=== PATIENT | male | born 1955 | race African-American/Black ===

== ENCOUNTER → 2018-12-20 | Outpatient (CLI) | payer BC ==
[~2018-12-20] MED LIST: AMIO200T4 PO; ASPI-612 PO; ATOR20TA58 PO; LEVO100T5 PO; LEVO50TA5 PO; LISI-338 PO; METF500T16 PO; METO25TA4 PO; NITR0.4T24 SL; TICA90TA PO
--- NOTE | 2018-12-20 09:41 | CARD ---
MR#: [id number] Date of Study: 12/20/2018 Ordering Physician: YANN LUCERO, Referring Physician: YANN LUCERO, Tech: Khalida Gu [facility] APPROVED REPORT EXAM: Two-dimensional and M-mode echocardiogram with Doppler and color Doppler. Other Information Quality : AverageHR: 55bpm Rhythm : Bradycardia INDICATION Cardiomyopathy 2D DIMENSIONS RVDd2.7 (2.9-3.5cm)Left Atrium(2D)4.1 (1.6-4.0cm) IVSd1.5 (0.7-1.1cm)Aortic Root(2D)2.5 (2.0-3.7cm) LVDd6.2 (3.9-5.9cm)LVOT Diameter2.5 (1.8-2.4cm) PWd0.9 (0.7-1.1cm)LVDs4.5 (2.5-4.0cm) FS (%) 27.7 %SV103.3 ml LVEF(%)35.0 (>50%) Aortic Valve AoV Peak Jordan.103.0cm/sAoV VTI22.6cm AO Peak GR.4.2mmHgLVOT Peak Jordan.94.7cm/s AO Mean GR.2mmHgAVA (VMAX)4.58cm2 SIVAN (VTI)4.00cm2 Mitral Valve MV E Nwmqhwah54.1cm/sMV E Peak Gr.3mmHg MV DECEL [id number] A Amhlommr85.6cm/s MV E Mean Gr.1mmHgE/A Ratio1.1 Pulmonary Valve PV Peak Hopzspas40.2cm/s Pulmonary Vein S1 Lmvbyyxe42.3cm/sD2 Ncoedsra27.1cm/s LEFT VENTRICLE The Left Ventricle is mildly dilated. There is mild concentric left ventricular hypertrophy. The left ventricular systolic function is severely impaired. The Ejection Fraction is 25-30%. There is global hypokinesis of the left ventricle. Transmitral Doppler flow pattern is Grade II-pseudonormal filling dynamics. RIGHT VENTRICLE The right ventricle is normal size. There is normal right ventricular wall thickness. The right ventr icular systolic function is normal. ATRIA The left atrium is mildly dilated. The right atrium size is normal. The interatrial septum is intact with no evidence for an atrial septal defect or patent foramen ovale as noted on 2-D or Doppler imagi ng. AORTIC VALVE The aortic valve is normal in structure and function. The aortic valve is trileaflet. Doppler and Col or Flow revealed no significant aortic regurgitation. There is no significant aortic valvular stenosi s. There is no aortic valvular vegetation. MITRAL VALVE The mitral valve is thickened but opens well. There is no evidence of mitral valve prolapse. There is no mitral valve stenosis. Doppler and Color-flow revealed mild mitral regurgitation. TRICUSPID VALVE The tricuspid valve is normal in structure and function. Doppler and Color Flow revealed trace tricus pid regurgitation. There is no tricuspid valve prolapse or vegetation. There is no tricuspid valve st enosis. PULMONIC VALVE The pulmonic valve is not well visualized. GREAT VESSELS The aortic root is normal in size. The ascending aorta is normal in size. The IVC is normal in size a nd collapses >50% with inspiration. PERICARDIAL EFFUSION There is no evidence of significant pericardial effusion. Critical Notification Critical Value: No <Conclusion> The left ventricular systolic function is severely impaired. The Ejection Fraction is 25-30%. Mild mitral regurgitation. Trace tricuspid regurgitation. There is no evidence of significant pericardial effusion. Signed by : Rambo Silva, Electronically Approved : 12/20/2018 09:41:29
== END | disposition home or self-care (01) ==
LOC: ECHO 07:35
PROVIDERS: ATTEND Internal Medicine Cardiovascular Disease
DX: I34.0 Nonrheumatic mitral (valve) insufficiency (principal); I11.9 Hypertensive heart disease without heart failure; I21.02 ST elevation (STEMI) myocardial infarction involving left anterior descending coronary artery
CPT/HCPCS: 93306

== ENCOUNTER 2019-01-26 22:14 | Inpatient (IN) | payer BC ==
[~2019-01-26] VITALS: Ht 190.5 cm; Wt 82.7 kg
--- NOTE | 2019-01-26 22:26 | PHYS DOC ---
Past Medical History Past Medical History: A-Fib, CAD, [place] Additional Past Surgical Histo: Stent x1 placement Smoking: Cigarettes Alcohol Use: None Drug Use: None Adult General Chief Complaint Chief Complaint: Syncopal episode HPI HPI Pt is a 63 y/o male with a history of [place] in April 2018, a-fib, who presents to the ED with a possible syncopal episode prior to arrival. Pt states that he has been having intense right dorsal foot pain since 1800 tonight. He was sitting down and trying to elevate his foot due to the pain. Afterwards he got up and felt hot, dizzy, and unbalanced. Per family, they then heard a large noise and called out to patient who did not respond. Family believes that pt had a full syncopal episode and pt is unsure what happened. He states this does not feel like his previous [place] episode. Denies any chest pain, nausea, vomiting or SOB. Pt has a planned defibrillator placement on 02/03/19. Review of Systems Review of Systems Constitutional: Denies fever or chills HENT: Denies nasal congestion or sore throat Respiratory: Denies cough or shortness of breath Cardiovascular: Denies chest pain or palpitations GI: Denies abdominal pain, nausea, or vomiting : Denies dysuria or hematuria Musculoskeletal: Reports right foot pain Integument: Denies rash or skin lesions Neurologic: Denies headache, focal weakness or sensory changes; reports syncope Complete systems were reviewed and found to be within normal limits, except as documented in this note. Current Medications Current Medications Current Medications Medications (Trade) Dose Ordered Sig/[facility] Start Time Stop Time Status Last Admin Dose Admin Aspirin (Joseline Aspirin) 325 mg 1X ONCE 01/27/19 00:15 01/27/19 00:16 DC 01/27/19 00:21 325 MG Fentanyl Citrate (Fentanyl 2ml Vial) 25 mcg PRN Q2HR PRN 01/27/19 00:15 Ketorolac Tromethamine (Toradol 15mg Vial) 15 mg 1X ONCE 01/27/19 00:15 01/27/19 00:16 DC 01/27/19 00:21 15 MG Ondansetron HCl (Zofran) 4 mg PRN Q8HRS PRN 01/27/19 00:15 01/28/19 00:14 Potassium Chloride (Klor-Con) 40 meq 1X ONCE 01/26/19 23:15 01/26/19 23:16 DC 01/26/19 23:27 40 MEQ Sodium Chloride 1,000 ml @ 1,000 mls/hr 1X ONCE 01/26/19 22:30 01/26/19 23:29 DC 01/26/19 22:47 1,000 MLS/HR Allergies Allergies Allergies Coded Allergies Type Severity Reaction Last Updated Verified No Known Drug Allergies 12/19/18 No Physical Exam Physical Exam Constitutional: Well developed, well nourished, no acute distress, non-toxic appearance HENT: Normocephalic, atraumatic, oropharynx moist Eyes: PERRL, EOMI, conjunctiva normal, no discharge Neck: Normal range of motion, no tenderness, supple Cardiovascular: Distant heart sounds Lungs & Thorax: Bilateral breath sounds clear to auscultation, no wheezing Abdomen: Soft, no tenderness Skin: Warm, dry, no erythema, no rash Back: No tenderness, no CVA tenderness Extremities: Tenderness to palpation on dorsum of right foot, no swelling, edema, ecchymosis noted. +2 bilateral pedal and radial pulses Neurologic: Alert and oriented X 3, normal motor function, normal sensory fun ction, no focal deficits noted, CN II-XII intact Psychologic: Affect normal, judgement normal Current Patient Data Vital Signs Vital Signs Date Time Temp Pulse Resp B/P (MAP) Pulse Ox O2 Delivery O2 Flow Rate FiO2 01/27/19 00:00 76 18 98 01/26/19 22:15 98.2 126/72 (90) Room Air 98.2 Lab Values Laboratory Tests Test 01/26/19 22:35 White Blood Count 6.1 x10^3/uL (4.0-11.0) Red Blood Count 4.08 x10^6/uL (4.30-5.70) L Hemoglobin 13.8 g/dL (13.0-17.5) Hematocrit 39.5 % (39.0-53.0) Mean Corpuscular Volume 97 fL (79-100) Mean Corpuscular Hemoglobin 34 pg (25-35) Mean Corpuscular Hemoglobin Concent 35 g/dL (31-37) Red Cell Distribution Width 13.3 % (11.5-14.5) Platelet Count 168 x10^3/uL (140-400) Neutrophils (%) (Auto) 72 % (31-73) Lymphocytes (%) (Auto) 20 % (24-48) L Monocytes (%) (Auto) 6 % (0-9) Eosinophils (%) (Auto) 2 % (0-3) Basophils (%) (Auto) 1 % (0-3) Neutrophils # (Auto) 4.4 x10^3/uL (1.8-7.7) Lymphocytes # (Auto) 1.2 x10^3/uL (1.0-4.8) Monocytes # (Auto) 0.4 x10^3/uL (0.0-1.1) Eosinophils # (Auto) 0.1 x10^3/uL (0.0-0.7) Basophils # (Auto) 0.0 x10^3/uL (0.0-0.2) Sodium Level 140 mmol/L (136-145) Potassium Level 3.1 mmol/L (3.5-5.1) L Chloride Level 103 mmol/L (98-107) Carbon Dioxide Level 24 mmol/L (21-32) Anion Gap 13 (6-14) Blood Urea Nitrogen 9 mg/dL (8-26) Creatinine 1.2 mg/dL (0.7-1.3) Estimated GFR (Cockcroft-Gault) 74.0 BUN/Creatinine Ratio 8 (6-20) Glucose Level 105 mg/dL (70-99) H Calcium Level 8.7 mg/dL (8.5-10.1) Magnesium Level 1.9 mg/dL (1.8-2.4) Total Bilirubin 0.3 mg/dL (0.2-1.0) Aspartate Amino Transferase (AST) 17 U/L (15-37) Alanine Aminotransferase (ALT) 8 U/L (16-63) L Alkaline Phosphatase 56 U/L (46-116) Creatine Kinase 120 U/L (39-308) Creatine Kinase MB (Mass) < 0.5 ng/mL (0.0-3.6) Creatine Kinase MB Relative Index % (0-4) Troponin I Quantitative 0.029 ng/mL (0.000-0.055) Total Protein 7.7 g/dL (6.4-8.2) Albumin 3.8 g/dL (3.4-5.0) Albumin/Globulin Ratio 1.0 (1.0-1.7) Laboratory Tests 01/26/19 22:35 Laboratory Tests 01/26/19 22:35 EKG EKG @2220 NSR at 71bpm, NO ST elevation, RBBB, compared to prior EKG per [facility] review from 04/27/18 which at that time noted RBBB with ST in V2-V5. Radiology/Procedures Radiology/Procedures PROCEDURE: CT HEAD WO CONTRAST INDICATION: Syncope COMPARISON: April 2003 TECHNIQUE: Axial CT images obtained through the head without intravenous contrast. One or more of the following individualized dose reduction techniques were utilized for this examination: 1. Automated exposure control; 2. Adjustment of the mA and/or kV according to patient size; 3. Use of iterative reconstruction technique. FINDINGS: No intracranial hemorrhage. No midline shift. Basal cisterns patent. Ventricles and sulci are unremarkable. No acute osseous abnormality. Orbits and paranasal sinuses unremarkable. IMPRESSION: * No acute intracranial hemorrhage. * Scattered foci of low-attenuation white matter. Nonspecific but can be seen with chronic small vessel ischemic disease. Electronically signed by: Danyel Cerna MD (01/26/2019 11:33 PM) [facility] PROCEDURE: FOOT RIGHT 3V INDICATION: Foot pain COMPARISON: None. IMPRESSION: 3 views of right foot obtained. degenerative changes are identified without acute fracture or dislocation. Calcific atherosclerosis. Electronically signed by: Danyel Cerna MD (01/27/2019 12:00 AM) [facility] Course & Med Decision Making Course & Med Decision Making Pt is a 63 y/o male with a history of afib and [place] (x1 stent placement) who presents with a possible syncopal episode. Pt previously felt hot, dizzy, and unbalanced prior to the event. He also complains of intense foot pain to the point where he is unable to bear weight on it. EKG showed no ST elevation but w/ RBBB. CT head w/o contrast shows no acute intracranial hemorrhage & scattered foci of low-attenuation white matter. Nonspecific but can be seen with chronic small vessel ischemic disease. Foot x-ray (right) without acute fracture or dislocation, calcific atherosclerosis. Plan for admit due to patient's cardiac risk factors and possible syncopal episode Patient requiring admission for further evaluation and treatment. Discussed with Dr. Roy (hospitalist) who is in agreement with admission. Discussed findings and plan with patient and family, who acknowledge understanding and agreement. Dragon Disclaimer Dragon Disclaimer This electronic medical record was generated, in whole or in part, using a voice recognition dictation system. Departure Departure Impression: Primary Impression: Syncope Disposition: ADMITTED INPATIENT Admitting Physician: GORDO Mckinley) Condition: STABLE Referrals: ROBERT SHRESTHA MD (PCP) The HEART Score for CP Pts HEART Score for Chest Pain: HEART Score for Chest Pain Response (Comments) Value History Slighlty/Non-Suspicious 0 ECG Nonspecific Repolarizatio 1 Age >45 - < 65 1 Risk Factors >3 Risk Factors or Hx CAD 2 Troponin < Normal Limit 0 Total 4 Risk Factors: Risk Factors: DM, Current or recent (<one month) smoker, HTN, HLP, family history of CAD, obesity. Risk Scores: Score 0 - 3: 2.5% MACE over next 6 weeks - Discharge Home Score 4 - 6: 20.3% MACE over next 6 weeks - Admit for Clinical Observation Score 7 - 10: 72.7% MACE over next 6 weeks - Early Invasive Strategies NIHSS Stroke Scale NIH Stroke Scale: NIH Stroke Scale Response (Comments) Value Level of Consciousness: 0 Alert/Responsive 0 LOC Questions: 0 Answers both correctly 0 LOC Commands: 0 Performs both tasks 0 Best Gaze: 0 Normal 0 Visual: 0 No visual loss 0 Facial Palsy: 0 Normal, symmetrical 0 Motor - Left Arm 0 No drift 0 Motor - Right Arm 0 No drift 0 Motor - Left Leg 0 No drift 0 Motor: Right Leg 0 No drift 0 Limb Ataxia: 0 Absent 0 Sensory: 0 No loss 0 Best Language: 0 Normal 0 Dysathria: 0 Normal 0 Extinction and Inattention: 0 Normal 0 Total 0 Problem Qualifiers Primary Impression: Syncope Syncope type: unspecified Qualified Codes: R55 - Syncope and collapse STANTON RODRÍGUEZ DO Jan 26, 2019 22:26
[2019-01-26] MEDS ORDERED: IV NORMAL SALINE 1000ML BAG 1,000 ML IV ONE (22:30)
[2019-01-26 22:44] LABS: BASO % 1 % (0-3); EOS # 0.1 x10^3/uL (0.0-0.7); EOS % 2 % (0-3); HEMATOCRIT 39.5 % (39.0-53.0); HEMOGLOBIN 13.8 g/dL (13.0-17.5); LYMPH # 1.2 x10^3/uL (1.0-4.8); LYMPH % 20 % (24-48); MEAN CORPUSCULAR HEMOGLOBIN 34 pg (25-35); MEAN CORPUSCULAR HGB CONC 35 g/dL (31-37); MEAN CORPUSCULAR VOLUME 97 fL (79-100); MONO # 0.4 x10^3/uL (0.0-1.1); MONO % 6 % (0-9); NEUT # 4.4 x10^3/uL (1.8-7.7); NEUT % 72 % (31-73); PLATELET COUNT 168 x10^3/uL (140-400); RED BLOOD COUNT 4.08 x10^6/uL (4.30-5.70); RED CELL DISTRIBUTION WIDTH 13.3 % (11.5-14.5); WHITE BLOOD COUNT 6.1 x10^3/uL (4.0-11.0)
[2019-01-26 22:53] LABS: CALCIUM 8.7 mg/dL (8.5-10.1); CREATININE 1.2 mg/dL (0.7-1.3); POTASSIUM 3.1 mmol/L (3.5-5.1)
[2019-01-26 22:59] LABS: ALBUMIN 3.8 g/dL (3.4-5.0); MAGNESIUM 1.9 mg/dL (1.8-2.4); TOTAL BILIRUBIN 0.3 mg/dL (0.2-1.0); TOTAL PROTEIN 7.7 g/dL (6.4-8.2)
[2019-01-26 23:07] LABS: CREATINE KINASE 120 U/L (39-308)
[2019-01-26] MEDS ORDERED: POTASSIUM CHLORIDE 20 MEQ TABLET.ER. PO ONE (23:15)
--- NOTE | 2019-01-26 23:36 | RAD ---
INDICATION: Syncope COMPARISON: April 2003 TECHNIQUE: Axial CT images obtained through the head without intravenous contrast. One or more of the following individualized dose reduction techniques were utilized for this examination: 1. Automated exposure control; 2. Adjustment of the mA and/or kV according to patient size; 3. Use of iterative reconstruction technique. FINDINGS: No intracranial hemorrhage. No midline shift. Basal cisterns patent. Ventricles and sulci are unremarkable. No acute osseous abnormality. Orbits and paranasal sinuses unremarkable. IMPRESSION: * No acute intracranial hemorrhage. * Scattered foci of low-attenuation white matter. Nonspecific but can be seen with chronic small vessel ischemic disease. Electronically signed by: Danyel Cerna MD (01/26/2019 11:33 PM) [facility]
--- NOTE | 2019-01-27 00:03 | RAD ---
INDICATION: Foot pain COMPARISON: None. IMPRESSION: 3 views of right foot obtained. degenerative changes are identified without acute fracture or dislocation. Calcific atherosclerosis. Electronically signed by: Danyel Cerna MD (01/27/2019 12:00 AM) [facility] [place]
[2019-01-27] MEDS ORDERED: ONDANSETRON PF 4 MG/2 ML VIAL. IV PRN (00:15)
[2019-01-27] MEDS ORDERED: fentaNYL PF VIAL 100 MCG/2 ML VIAL IV PRN (00:15)
[2019-01-27] MEDS ORDERED: KETOROLAC 15 MG/ML VIAL. IVP ONE (00:15)
[2019-01-27] MEDS ORDERED: ASPIRIN 325 MG TABLET PO ONE (00:15)
[2019-01-27] MEDS ORDERED: AMIO200T4 PO (01:10)
[2019-01-27] MEDS ORDERED: SACU1TAB7 PO (01:21)
[2019-01-27] MEDS ORDERED: CLOP75TA PO (01:21)
[2019-01-27 03:02] VITALS: BP 115/68
--- NOTE | 2019-01-27 05:31 | NUR ---
Patient arrived to unit at approx 0030 accompanied by ED nurse and Fiona. VS stable, assessment complete. Patient states tat right foot was hurting prior to arriving to unit, only hurts to bear weight at this time. PT consult placed, patient will not bear weight on right foot. Resting comfortably on RA. Patient is scheduled to have a defibrillator placed on 02/03/[address] Carter per patient and . bed in low locked position, call light in reach. reminded patient to call for help before ambulating. will continue to monitor.
[2019-01-27 07:03] VITALS: BP 105/64
[2019-01-27] MEDS ORDERED: LEVOTHYROXINE 100 MCG TABLET PO SCH (07:30)
--- NOTE | 2019-01-27 07:58 | PDOC1 ---
History and Physical Date of Admission Date of Admission DATE: 01/27/19 TIME: 07:58 Identification/Chief Complaint Chief Complaint Foot pain Current Medications Current Medications Current Medications Sodium Chloride 1,000 ml @ 1,000 mls/hr 1X ONCE IV Last administered on 01/26/19at 22:47; Start 01/26/19 at 22:30; Stop 01/26/19 at 23:29; Status DC Potassium Chloride (Klor-Con) 40 meq 1X ONCE PO Last administered on 01/26/19at 23:27; Start 01/26/19 at 23:15; Stop 01/26/19 at 23:16; Status DC Aspirin (Joseline Aspirin) 325 mg 1X ONCE PO Last administered on 01/27/19at 00:21; Start 01/27/19 at 00:15; Stop 01/27/19 at 00:16; Status DC Ketorolac Tromethamine (Toradol 15mg Vial) 15 mg 1X ONCE IVP Last administered on 01/27/19at 00:21; Start 01/27/19 at 00:15; Stop 01/27/19 at 00:16; Status DC Ondansetron HCl (Zofran) 4 mg PRN Q8HRS PRN IV NAUSEA/VOMITING; Start 01/27/19 at 00:15; Stop 01/28/19 at 00:14 Fentanyl Citrate (Fentanyl 2ml Vial) 25 mcg PRN Q2HR PRN IV PAIN; Start 01/27/19 at 00:15 Levothyroxine Sodium (Synthroid) 100 mcg DAILYAC PO Last administered on 01/27/19at 07:40; Start 01/27/19 at 07:30 Active Scripts Active Nitrostat (Nitroglycerin) 0.4 Mg Tab.subl 0.4 Mg SL PRN Q5MIN PRN 30 Days PLEASE TAKE NEEDED FOR CHEST PAIN, REPEAT EVERY 5 MIN X 3 PLEASE CALL MD IF PAIN NOT RESOLVED AFTER THIRD DOSE. Aspirin Ec (Aspirin) 81 Mg Tablet.dr 81 Mg PO DAILYWBKFT Metoprolol Tartrate 25 Mg Tablet 12.5 Mg PO BID Atorvastatin Calcium 20 Mg Tablet 40 Mg PO QHS Reported Entresto 49 mg-51 mg Tablet (Sacubitril/Valsartan) 1 Each Tablet 1 Each PO DAILY Clopidogrel (Clopidogrel Bisulfate) 75 Mg Tablet 75 Mg PO DAILY Amiodarone Hcl 200 Mg Tablet 200 Mg PO BID Levothyroxine Sodium 100 Mcg Tablet 100 Mcg PO DAILYAC Allergies Allergies: Coded Allergies: No Known Drug Allergies (Unverified , 12/19/18) Vitals Vitals Vital Signs Date Time Temp Pulse Resp B/P (MAP) Pulse Ox O2 Delivery O2 Flow Rate FiO2 01/27/19 07:03 97.5 67 16 105/64 (78) 95 Room Air 97.5 Labs Labs Laboratory Tests Test 01/26/19 22:35 01/27/19 03:30 01/27/19 06:20 White Blood Count 6.1 x10^3/uL (4.0-11.0) Red Blood Count 4.08 x10^6/uL (4.30-5.70) Hemoglobin 13.8 g/dL (13.0-17.5) Hematocrit 39.5 % (39.0-53.0) Mean Corpuscular Volume 97 fL (79-100) Mean Corpuscular Hemoglobin 34 pg (25-35) Mean Corpuscular Hemoglobin Concent 35 g/dL (31-37) Red Cell Distribution Width 13.3 % (11.5-14.5) Platelet Count 168 x10^3/uL (140-400) Neutrophils (%) (Auto) 72 % (31-73) Lymphocytes (%) (Auto) 20 % (24-48) Monocytes (%) (Auto) 6 % (0-9) Eosinophils (%) (Auto) 2 % (0-3) Basophils (%) (Auto) 1 % (0-3) Neutrophils # (Auto) 4.4 x10^3/uL (1.8-7.7) Lymphocytes # (Auto) 1.2 x10^3/uL (1.0-4.8) Monocytes # (Auto) 0.4 x10^3/uL (0.0-1.1) Eosinophils # (Auto) 0.1 x10^3/uL (0.0-0.7) Basophils # (Auto) 0.0 x10^3/uL (0.0-0.2) Sodium Level 140 mmol/L (136-145) Potassium Level 3.1 mmol/L (3.5-5.1) Chloride Level 103 mmol/L (98-107) Carbon Dioxide Level 24 mmol/L (21-32) Anion Gap 13 (6-14) Blood Urea Nitrogen 9 mg/dL (8-26) Creatinine 1.2 mg/dL (0.7-1.3) Estimated GFR (Cockcroft-Gault) 74.0 BUN/Creatinine Ratio 8 (6-20) Glucose Level 105 mg/dL (70-99) Calcium Level 8.7 mg/dL (8.5-10.1) Magnesium Level 1.9 mg/dL (1.8-2.4) Total Bilirubin 0.3 mg/dL (0.2-1.0) Aspartate Amino Transf (AST/SGOT) 17 U/L (15-37) Alanine Aminotransferase (ALT/SGPT) 8 U/L (16-63) Alkaline Phosphatase 56 U/L (46-116) Creatine Kinase 120 U/L (39-308) Creatine Kinase MB (Mass) < 0.5 ng/mL (0.0-3.6) Creatine Kinase MB Relative Index % (0-4) Troponin I Quantitative 0.029 ng/mL (0.000-0.055) 0.040 ng/mL (0.000-0.055) 0.021 ng/mL (0.000-0.055) Total Protein 7.7 g/dL (6.4-8.2) Albumin 3.8 g/dL (3.4-5.0) Albumin/Globulin Ratio 1.0 (1.0-1.7) Laboratory Tests Test 01/26/19 22:35 01/27/19 03:30 01/27/19 06:20 White Blood Count 6.1 x10^3/uL (4.0-11.0) Red Blood Count 4.08 x10^6/uL (4.30-5.70) Hemoglobin 13.8 g/dL (13.0-17.5) Hematocrit 39.5 % (39.0-53.0) Mean Corpuscular Volume 97 fL (79-100) Mean Corpuscular Hemoglobin 34 pg (25-35) Mean Corpuscular Hemoglobin Concent 35 g/dL (31-37) Red Cell Distribution Width 13.3 % (11.5-14.5) Platelet Count 168 x10^3/uL (140-400) Neutrophils (%) (Auto) 72 % (31-73) Lymphocytes (%) (Auto) 20 % (24-48) Monocytes (%) (Auto) 6 % (0-9) Eosinophils (%) (Auto) 2 % (0-3) Basophils (%) (Auto) 1 % (0-3) Neutrophils # (Auto) 4.4 x10^3/uL (1.8-7.7) Lymphocytes # (Auto) 1.2 x10^3/uL (1.0-4.8) Monocytes # (Auto) 0.4 x10^3/uL (0.0-1.1) Eosinophils # (Auto) 0.1 x10^3/uL (0.0-0.7) Basophils # (Auto) 0.0 x10^3/uL (0.0-0.2) Sodium Level 140 mmol/L (136-145) Potassium Level 3.1 mmol/L (3.5-5.1) Chloride Level 103 mmol/L (98-107) Carbon Dioxide Level 24 mmol/L (21-32) Anion Gap 13 (6-14) Blood Urea Nitrogen 9 mg/dL (8-26) Creatinine 1.2 mg/dL (0.7-1.3) Estimated GFR (Cockcroft-Gault) 74.0 BUN/Creatinine Ratio 8 (6-20) Glucose Level 105 mg/dL (70-99) Calcium Level 8.7 mg/dL (8.5-10.1) Magnesium Level 1.9 mg/dL (1.8-2.4) Total Bilirubin 0.3 mg/dL (0.2-1.0) Aspartate Amino Transf (AST/SGOT) 17 U/L (15-37) Alanine Aminotransferase (ALT/SGPT) 8 U/L (16-63) Alkaline Phosphatase 56 U/L (46-116) Creatine Kinase 120 U/L (39-308) Creatine Kinase MB (Mass) < 0.5 ng/mL (0.0-3.6) Creatine Kinase MB Relative Index % (0-4) Troponin I Quantitative 0.029 ng/mL (0.000-0.055) 0.040 ng/mL (0.000-0.055) 0.021 ng/mL (0.000-0.055) Total Protein 7.7 g/dL (6.4-8.2) Albumin 3.8 g/dL (3.4-5.0) Albumin/Globulin Ratio 1.0 (1.0-1.7) VTE Prophylaxis Ordered VTE Prophylaxis Devices: Yes LEXY LIGHT MD Jan 27, 2019 07:58
--- NOTE | 2019-01-27 10:20 | EKG ---
[facility] [address] [place] [address] Test Date: 2019-01-26 Test Time: 22:20:15 Pat Name: ANGIE HAN Department: Room: Gender: M Medical File Clerk: : 1955 Requested By: STANTON RODRÍGUEZ Order Number: [id number] Reading MD: Measurements Intervals [place] Rate: 71 P: 53 CA: 160 QRS: -111 QRSD: 142 T: 57 QT: 434 QTc: 472 Interpretive Statements SINUS RHYTHM LEFT ATRIAL ABNORMALITY ABNORMAL RIGHT SUPERIOR AXIS DEVIATION LEFT ANTERIOR FASCICULAR BLOCK NON SPECIFIC INTRAVENTRICULAR BLOCK QRS(T) CONTOUR ABNORMALITY CONSISTENT WITH ANTEROSEPTAL INFARCT AGE UNDETERMINED ABNORMAL ECG RI6.01 No previous ECG available for comparison
[2019-01-27 11:30] VITALS: BP 112/70
--- NOTE | 2019-01-27 11:41 | PDOC2 ---
CARDIOLOGY CONSULT NOTE CHEIF COMPLAINT: passed out HPI: Pleasant 63 y.o man with known ischemic CMP planned for ICD on 02/03 presented to the ER with severe R foot pain x 2 days. He had pain bad enough where he thinks he passed out for a few seconds. at bedside corroborates this. Evaluation thus far has not revealed any obvious pathology. From a cardiac perspective he denies any chest pain, dyspnea, orthopnea or PND. No significant lower extremity edema. He has been compliant with his heart failure regimen. He did not feel any palpitations or nausea prior to this episode. PMHX: 1. Ischemic cardio myopathy 2. Dyslipidemia 3. Hypertension 4. Tobacco abuse SOCHX: He continues to smoke. Denies any illicit drug use. He retired. He does not drink alcohol heavily. He is . FAMHX: Noncontributory CURRENT MEDS: Current Medications Medications (Trade) Dose Ordered Sig/Promise Route PRN Reason Start Time Stop Time Status Last Admin Dose Admin Sodium Chloride 1,000 ml @ 1,000 mls/hr 1X ONCE IV 01/26/19 22:30 01/26/19 23:29 DC 01/26/19 22:47 Potassium Chloride (Klor-Con) 40 meq 1X ONCE PO 01/26/19 23:15 01/26/19 23:16 DC 01/26/19 23:27 Aspirin (Joseline Aspirin) 325 mg 1X ONCE PO 01/27/19 00:15 01/27/19 00:16 DC 01/27/19 00:21 Ketorolac Tromethamine (Toradol 15mg Vial) 15 mg 1X ONCE IVP 01/27/19 00:15 01/27/19 00:16 DC 01/27/19 00:21 Levothyroxine Sodium (Synthroid) 100 mcg DAILYAC PO 01/27/19 07:30 01/27/19 07:40 ALLERGIES: Allergies Coded Allergies Type Severity Reaction Last Updated Verified No Known Drug Allergies 12/19/18 No ROS: Negative unless otherwise mentioned above in history of present illness PHYSICAL EXAM: Vital Signs/I&O: Vital Signs Date Time Temp Pulse Resp B/P (MAP) Pulse Ox O2 Delivery O2 Flow Rate FiO2 01/27/19 08:00 Room Air 01/27/19 07:03 97.5 67 16 105/64 (78) 95 97.5 I & O 01/26/19 01/26/19 01/27/19 15:00 23:00 07:00 Intake Total 1140 ml Balance 1140 ml Physical Exam: GEN.: No apparent distress. Alert and oriented. HEENT: Head is normocephalic, atraumatic NECK: Supple. LUNGS: Clear to auscultation. HEART: RRR, S1, S2 present. Peripheral pulses intact ABDOMEN: Soft, nontender. Positive bowel sounds. EXTREMITIES: Without any cyanosis. NEUROLOGIC: Normal speech, normal tone PSYCHIATRIC: Normal affect, normal mood. SKIN: No ulcerations DIAGNOSTIC TESTING: Troponin, EKG unremarkable Recent echo with severe LV dysfunction For x-ray unremarkable Lab Laboratory Tests Test 01/26/19 22:35 White Blood Count 6.1 x10^3/uL (4.0-11.0) Red Blood Count 4.08 x10^6/uL (4.30-5.70) L Hemoglobin 13.8 g/dL (13.0-17.5) Hematocrit 39.5 % (39.0-53.0) Mean Corpuscular Volume 97 fL (79-100) Mean Corpuscular Hemoglobin 34 pg (25-35) Mean Corpuscular Hemoglobin Concent 35 g/dL (31-37) Red Cell Distribution Width 13.3 % (11.5-14.5) Platelet Count 168 x10^3/uL (140-400) Neutrophils (%) (Auto) 72 % (31-73) Lymphocytes (%) (Auto) 20 % (24-48) L Monocytes (%) (Auto) 6 % (0-9) Eosinophils (%) (Auto) 2 % (0-3) Basophils (%) (Auto) 1 % (0-3) Neutrophils # (Auto) 4.4 x10^3/uL (1.8-7.7) Lymphocytes # (Auto) 1.2 x10^3/uL (1.0-4.8) Monocytes # (Auto) 0.4 x10^3/uL (0.0-1.1) Eosinophils # (Auto) 0.1 x10^3/uL (0.0-0.7) Basophils # (Auto) 0.0 x10^3/uL (0.0-0.2) Sodium Level 140 mmol/L (136-145) Potassium Level 3.1 mmol/L (3.5-5.1) L Chloride Level 103 mmol/L (98-107) Carbon Dioxide Level 24 mmol/L (21-32) Anion Gap 13 (6-14) Blood Urea Nitrogen 9 mg/dL (8-26) Creatinine 1.2 mg/dL (0.7-1.3) Estimated GFR (Cockcroft-Gault) 74.0 BUN/Creatinine Ratio 8 (6-20) Glucose Level 105 mg/dL (70-99) H Calcium Level 8.7 mg/dL (8.5-10.1) Total Bilirubin 0.3 mg/dL (0.2-1.0) Aspartate Amino Transf (AST/SGOT) 17 U/L (15-37) Alkaline Phosphatase 56 U/L (46-116) Creatine Kinase 120 U/L (39-308) Creatine Kinase MB (Mass) < 0.5 ng/mL (0.0-3.6) Creatine Kinase MB Relative Index % (0-4) Total Protein 7.7 g/dL (6.4-8.2) Albumin 3.8 g/dL (3.4-5.0) Albumin/Globulin Ratio 1.0 (1.0-1.7) Laboratory Tests 01/26/19 22:35 ASSESSMENT: 1. Right foot pain: Definitive diagnosis includes cellulitis, gout versus arthritic inflammatory joint pain 2. Ischemic cardio myopathy, stable PLAN: 1. Await further assessment by PCP with regards to right foot pain. It appears much improved today. Probable arthritic inflammatory issues 2. No further cardiac testing necessary. His labs, EKG are unremarkable. Okay to discharge from a cardiac standpoint. He'll follow-up with us on an outpatient basis for his planned ICD placement next week. I've advised the patient to notify us if he has any worsening right lower extremity foot pain or redness/fevers or chills. Thank you for this consultation. GABRIEL ROCK MD Jan 27, 2019 11:41
[2019-01-27] MEDS ORDERED: NITROGLYCERIN SUBLINGUAL 0.4 MG BOTTLE OF 25. SL PRN (14:15)
[2019-01-27] MEDS ORDERED: METOPROLOL TART IMMED RELEASE 25 MG TABLET. PO SCH (14:15)
[2019-01-27] MEDS ORDERED: SACUBITRIL/VALSARTAN 49/51MG TABLET. PO SCH (14:15)
[2019-01-27] MEDS ORDERED: DICLOFENAC SODIUM 1% TOPICAL GEL 100GM TUBE. TP SCH (14:15)
[2019-01-27 14:40] VITALS: BP 114/66
[2019-01-27 14:41] VITALS: BP 114/66
[2019-01-27] MEDS ORDERED: CLOPIDOGREL BISULFATE 75 MG TABLET PO SCH (15:00)
[2019-01-27] MEDS ORDERED: ASPIRIN ENTERIC COATED 81 MG TABLET.DR. PO SCH (15:00)
--- NOTE | 2019-01-27 16:44 | NUR ---
Discharge Note: ANGIE HAN Discharge instructions and discharge home medications reviewed with Patient and a copy given. All questions have been answered and understanding verbalized.
[2019-01-27] MEDS ORDERED: AMIODARONE HCL 200 MG TABLET. PO SCH (21:00)
[2019-01-27] MEDS ORDERED: ATORVASTATIN CALCIUM 40 MG TABLET. PO SCH (21:00)
== END 2019-01-27 16:35 | disposition home or self-care (01) | DRG 603 ==
LOC: ER 22:14 → 2 NORTH 01-27 00:15
PROVIDERS: ADMIT Internal Medicine; ATTEND Internal Medicine
DX: L03.115 Cellulitis of right lower limb (principal); M10.9 Gout, unspecified; I25.10 Atherosclerotic heart disease of native coronary artery without angina pectoris; I25.2 Old myocardial infarction; I25.5 Ischemic cardiomyopathy; I48.91 Unspecified atrial fibrillation; Z87.891 Personal history of nicotine dependence; I10 Essential (primary) hypertension
CPT/HCPCS: 36415; 70450; 73630; 80053; 82553; 83735; 84484; 85025; 93005; 96361; 96374; J1885; J7030; 99285-25; G0378

== ENCOUNTER 2019-02-03 10:13 | Observation (INO) | payer BC ==
[~2019-02-03] VITALS: Ht 188 cm; Wt 82.6 kg
[2019-02-03] VITALS (11 sets, daily range): BP systolic 105–137; BP diastolic 65–87
[~2019-02-03 10:13] MED LIST changes: +CLOP75TA PO; +HYDROmorphone 2 MG/ML VIAL IV PRN; +IV RINGERS,LACTATED 1000ML 1,000 ML IV SCH; +LIDOCAINE 1% PF 2 ML VIAL. ID PRN; +MORPHINE SULFATE 2 MG/ML VIAL. IV PRN; +ONDANSETRON PF 4 MG/2 ML VIAL. IV PRN; +PROCHLORPERAZINE 10 MG/2 ML VIAL. IV PRN; +SACU1TAB7 PO; +fentaNYL PF VIAL 100 MCG/2 ML VIAL IV PRN
[2019-02-03] MEDS ORDERED: BACITRACIN 50,000 UNIT in IV NORMAL SALINE 250ML 250 ML IRR ONE (10:30)
--- NOTE | 2019-02-03 10:44 | EKG ---
[facility] [address] [place] [address] Test Date: 2019-02-03 Test Time: 10:39:16 Pat Name: ANGIE HAN Department: Room: Gender: M Principal Security Architect: : 1955 Requested By: MAGED SERRATO Order Number: [id number] Reading MD: Negro Martinez MD Measurements Intervals [place] Rate: 57 P: 38 OR: 152 QRS: 242 QRSD: 144 T: 117 QT: 566 QTc: 555 Interpretive Statements SINUS RHYTHM RBBB LAD Electronically Signed On 02-07-2019 13:50:02 TOOL GRINDER OPERATOR by Negro Martinez MD
[2019-02-03 10:46] LABS: HEMATOCRIT 41.6 % (39.0-53.0); HEMOGLOBIN 14.2 g/dL (13.0-17.5); RED BLOOD COUNT 4.24 x10^6/uL (4.30-5.70); RED CELL DISTRIBUTION WIDTH 13.4 % (11.5-14.5); WHITE BLOOD COUNT 3.9 x10^3/uL (4.0-11.0)
[2019-02-03 11:02] LABS: CALCIUM 8.8 mg/dL (8.5-10.1); CREATININE 1.2 mg/dL (0.7-1.3); POTASSIUM 4.1 mmol/L (3.5-5.1)
[2019-02-03 11:11] LABS: PROTHROMBIN TIME PATIENT 12.7 SEC (11.7-14.0)
[2019-02-03] MEDS ORDERED: KETAMINE HCL 500 MG/10 ML VIAL. ONE (11:51)
[2019-02-03] MEDS ORDERED: MIDAZOLAM HCL/PF 2 MG/2 ML VIAL. ONE (11:52)
[2019-02-03] MEDS ORDERED: PROPOFOL 20 ML IV ONE (11:52)
[2019-02-03] MEDS ORDERED: PROPOFOL 100 ML IV ONE (11:53)
[2019-02-03] MEDS ORDERED: LIDOCAINE 2%/EPI 1:100,000 20 ML VIAL. ONE (12:04)
[2019-02-03] MEDS ORDERED: IOHEXOL 300 MG/ML 100ML VIAL. ONE (12:04)
[2019-02-03] MEDS ORDERED: IOHEXOL 300 MG/ML 100ML VIAL. IART ONE (12:30)
[2019-02-03] MEDS ORDERED: LIDOCAINE 2%/EPI 1:100,000 20 ML VIAL. IJ ONE (12:30)
[2019-02-03] MEDS ORDERED: NO ANTICOAGULANT THERAPY. MC PRN (15:15)
--- NOTE | 2019-02-03 15:29 | CARD ---
MR#: [id number] Date of Study: 02/03/2019 Ordering Physician: MAGED SILVA, Referring Physician: MAGED SILVA, Tech: APPROVED REPORT EXAM Implantation of Biotronik biventricular automated implantable cardioverter defibrillator/cardiac resy nchronization therapy-defibrillation (BiV-ICD/PROFESSOR OF LEGAL STUDIES-D) with defibrillation thresholds measurement of th e time of implantation FL TIME: 21.7 MINS DOSE: 58.5 GY/CM2 CONTRAST: 25 ML INDICATIONS Primary prevention of sudden cardiac and cardiac resynchronization therapy in a patient with is chemic cardiomyopathy, chronic systolic heart failure, LVEF 25-30% and cardiac dyssynchrony evidenced by prolonged QRS interval of 160 ms IMPLANTED DEVICES After explaining the risks, benefits and alternative options, informed consent was obtained from juhi ent. Patient was brought to the cardiac Human Resources Project Manager and his left chest and shoulder were prepped and corona ped in the usual fashion. An incision was made over the left infraclavicular fossa and using blunt di ssection and cautery a pocket was created. Venous access was obtained in the left subclavian vein and a 9 Tuvaluan sheath was inserted. Contrast injections were performed within the right atrium using CASS2 catheter and coronary sinus wa s engaged. The coronary sinus sheath was then advanced into the CS, and with the balloontipped cathet er inflated venogram was obtained to identify the appropriate vein for placement of left ventricular lead. An inner catheter was then used to engage the middle cardiac vein selectively following which a Biotronik quadripolar left ventricular lead model Sentus ProMRI OTW QPL-85, serial #[id number] was adv anced. Subsequently, venous access was again obtain and 10.5 and 7 Tuvaluan sheaths inserted. A Biotronik bipo lar active fixation right ventricular lead model Plexa ProMRI serial #[id number] was advanced under flu oroscopy guidance and the tip was positioned in the right ventricle apex. Finally, a Biotronik bipola r active fixation right atrial lead model Solia, serial #[id number] was positioned in the right atrial appendage. The leads were secured in place and attached to a Biotronik biventricular ICD/PROFESSOR OF LEGAL STUDIES-D generator model I sara 7 HF-T QP, serial #[id number]. This was placed in the pocket that was subsequently closed in 3 la yers. Hemostasis was secured. Ventricle fibrillation was induced to check the defibrillation threshol d. Patient successfully converted to sinus rhythm with 15 J shock therapy. The left ventricular lead showed a sensing amplitude of 4 mV, impedance of 800 ohms and a threshold o f 1.1 V. The right ventricular lead showed a sensing amplitude of 9 mV, impedance of 578 ohms and a t hreshold of 0.7 V. The right atrial lead showed a sensing amplitude of 2.1 mV, impedance of 565 ohms and a threshold of 0.9 V. Patient tolerated the procedure well. There were no immediate complications . CONCLUSION Successful implantation of Biotronik biventricular ICD/PROFESSOR OF LEGAL STUDIES-D for primary prevention of sudden cardiac and cardiac resynchronization therapy in a patient with ischemic cardiomyopathy, LVEF 25-30% a nd prolonged QRS interval of 160 ms. Defibrillation thresholds were measured at the time of implantat ion. Signed by : Maged Silva, Electronically Approved : 02/03/2019 15:28:49
--- NOTE | 2019-02-03 15:38 | RAD ---
PORTABLE CHEST 1V Clinical indications: Post pacemaker placement COMPARISON: August 20, 2010. Findings: 3-lead pacemaker has been placed via a left subclavian approach. No pneumothorax or pleural effusion is seen. There is mild left lung base atelectasis now present. No pulmonary edema is seen. Heart size and pulmonary vasculature and mediastinum and both lina are stable. IMPRESSION: Placement of pacemaker without pneumothorax. New finding of mild left lung base atelectasis. Electronically signed by: Lan Jaramillo MD (02/03/2019 3:35 PM) [facility]
[2019-02-03] MEDS ORDERED: NITROGLYCERIN SUBLINGUAL 0.4 MG BOTTLE OF 25. SL PRN (17:00)
[2019-02-03] MEDS: HYDROcodone/APAP 5/325MG 1 TAB TABLET PO PRN ×2 (19:48→23:09)
[2019-02-03] MEDS: AMIODARONE HCL 200 MG TABLET. PO SCH (20:50)
[2019-02-03] MEDS: METOPROLOL TART IMMED RELEASE 25 MG TABLET. PO SCH (20:51)
[2019-02-03] MEDS: SACUBITRIL/VALSARTAN 49/51MG TABLET. PO SCH (20:51)
[2019-02-03] MEDS ORDERED: ATORVASTATIN CALCIUM 40 MG TABLET. PO SCH (21:00)
[2019-02-04 03:30] VITALS: BP 109/64
[2019-02-04 07:00] VITALS: BP 114/80
[2019-02-04] MEDS ORDERED: LEVOTHYROXINE 100 MCG TABLET PO SCH (07:30)
[2019-02-04] MEDS ORDERED: ASPIRIN ENTERIC COATED 81 MG TABLET.DR. PO SCH (08:00)
[2019-02-04] MEDS: SACUBITRIL/VALSARTAN 49/51MG TABLET. PO SCH (08:41)
[2019-02-04] MEDS: METOPROLOL TART IMMED RELEASE 25 MG TABLET. PO SCH (08:41)
[2019-02-04] MEDS: AMIODARONE HCL 200 MG TABLET. PO SCH (08:41)
--- NOTE | 2019-02-04 08:46 | RAD ---
Chest PA and lateral: Reason for examination: One day post pacemaker implantation. Comparison is made to previous exam dated 02/03/2019. Right-sided pacemaker is present with leads to the right atrium and right ventricle. No pneumothorax or pleural effusion is evident. The heart size is normal. Mediastinum is unremarkable. Lung levy are clear. No acute bony abnormalities are seen. Impression: Left-sided pacemaker in place with no pneumothorax evident. No acute cardiopulmonary disease evident. Electronically signed by: Kimberly Rosenbaum MD (02/04/2019 8:43 AM) [facility]
[2019-02-04] MEDS ORDERED: CLOPIDOGREL BISULFATE 75 MG TABLET PO SCH (09:00)
[2019-02-04 11:00] VITALS: BP 119/76
--- NOTE | 2019-02-04 13:49 | PDOC3 ---
Discharge Summary Visit Information Date of Admission: Feb 03, 2019 Date of Discharge: Feb 04, 2019 Admitting Diagnosis: ischemic cardiomyopathy Final Diagnosis Ischemic cardiomyopathy Chronic systolic heart failure Coronary artery disease Hypertension Hyperlipidemia Hypothyroidism Brief Hospital Course Allergies Allergies Coded Allergies Type Severity Reaction Last Updated Verified ticagrelor Allergy Severe Swelling 02/03/19 Yes Vital Signs Vital Signs Date Time Temp Pulse Resp B/P (MAP) Pulse Ox O2 Delivery O2 Flow Rate FiO2 02/04/19 11:00 98.0 62 20 119/76 (90) 97 Room Air 98.0 Lab Results Laboratory Tests Test 02/03/19 10:35 White Blood Count 3.9 x10^3/uL (4.0-11.0) Red Blood Count 4.24 x10^6/uL (4.30-5.70) Hemoglobin 14.2 g/dL (13.0-17.5) Hematocrit 41.6 % (39.0-53.0) Mean Corpuscular Volume 98 fL (79-100) Mean Corpuscular Hemoglobin 33 pg (25-35) Mean Corpuscular Hemoglobin Concent 34 g/dL (31-37) Red Cell Distribution Width 13.4 % (11.5-14.5) Platelet Count 194 x10^3/uL (140-400) Prothrombin Time 12.7 SEC (11.7-14.0) Prothromb Time International Ratio 1.0 (0.8-1.1) Sodium Level 142 mmol/L (136-145) Potassium Level 4.1 mmol/L (3.5-5.1) Chloride Level 104 mmol/L (98-107) Carbon Dioxide Level 29 mmol/L (21-32) Anion Gap 9 (6-14) Blood Urea Nitrogen 10 mg/dL (8-26) Creatinine 1.2 mg/dL (0.7-1.3) Estimated GFR (Cockcroft-Gault) 74.0 Glucose Level 96 mg/dL (70-99) Calcium Level 8.8 mg/dL (8.5-10.1) Brief Hospital Course Mr. Santana is a 63 old male with history of ischemic cardiomyopathy, chronic systolic heart failure and cardiac dyssynchrony as evidenced by prolonged QRS interval underwent successful Biotronik biventricular ICD/FLIGHT COMMUNICATIONS OPERATOR-D implantation. Defibrillation thresholds were also measured at the time of implantation. He remained hemodynamically stable and well compensated during his hospital stay. Chest x-ray did not show any pneumothorax, device interrogation prior to discharge showed normal function and incision looked good. He will follow-up with our office for wound check as scheduled next week. Discharge Information Condition at Discharge: Stable Follow Up: Weeks (1) Disposition/Orders: D/C to Home Scheduled Amiodarone Hcl (Amiodarone Hcl) 200 Mg Tablet, 200 MG PO BID for , (Reported) Entered as Reported by: NAN LEE RN on 01/27/19 011 Last Taken: Unknown Dose on 02/03/19 Last Action: Continued on 02/03/191699 by ANDREW PHAN Aspirin (Aspirin Ec) 81 Mg Tablet.dr, 81 MG PO DAILYWBKFT for heart, #30 Ref 2 Prescribed by: JEYSON BOYLE APRN on 04/28/181123 Last Taken: Unknown Dose on 02/03/19 Last Action: Continued on 02/03/191699 by ANDREW PHAN Atorvastatin Calcium (Atorvastatin Calcium) 20 Mg Tablet, 40 MG PO QHS for cholesterol, #30 Ref 2 Prescribed by: JEYSON BOYLE APRN on 04/28/181123 Last Taken: Unknown Dose on 02/02/19 Last Action: Continued on 02/03/191699 by ANDREW PHAN Clopidogrel Bisulfate (Clopidogrel) 75 Mg Tablet, 75 MG PO DAILY for TO PREVENT BLOOD CLOTS, #30 Ref 0 (Reported) Entered as Reported by: Siddhartha Santillan on 01/27/19 012 Last Taken: Unknown Dose on 02/03/19 Last Action: Continued on 02/03/191699 by ANDREW PHAN Levothyroxine Sodium (Levothyroxine Sodium) 100 Mcg Tablet, 100 MCG PO DAILYAC for THYROID SUPPLEMENT, #30 Ref 0 (Reported) Entered as Reported by: KERRI GARCIA on 04/28/18 0430 Last Taken: 50 mcg on 02/03/19 Last Action: Continued on 02/03/191699 by ANDREW PHAN Metoprolol Tartrate (Metoprolol Tartrate) 25 Mg Tablet, 12.5 MG PO BID for heart, #30 Ref 2 Prescribed by: JEYSON BOYLE APRN on 04/28/181123 Last Taken: 25 mg on 02/03/19 Last Action: Continued on 02/03/191699 by ANDREW PHAN Sacubitril/Valsartan (Entresto 49 mg-51 mg Tablet) 1 Each Tablet, 1 EACH PO DAILY for chf, (Reported) Entered as Reported by: Siddhartha Santillan on 01/27/19 0121 Last Taken: Unknown Dose on 02/03/19 Last Action: Continued on 02/03/191699 by ANDREW PHAN Scheduled PRN Nitroglycerin (Nitrostat) 0.4 Mg Tab.subl, 0.4 MG SL PRN Q5MIN PRN for CHEST PAIN for 30 Days, #30 PLEASE TAKE NEEDED FOR CHEST PAIN, REPEAT EVERY 5 MIN X 3 PLEASE CALL MD IF PAIN NOT RESOLVED AFTER THIRD DOSE. Prescribed by: TRISH LEE MD on 04/28/18 1204 Last Taken: UNKNOWN on Unknown Date & Time Last Action: Continued on 02/03/191699 by MAGED MIXON MD Feb 04, 2019 13:49
[2019-02-04] MEDS: HYDROcodone/APAP 5/325MG 1 TAB TABLET PO PRN (14:49)
--- NOTE | 2019-02-04 15:30 | NUR ---
Discharge Note: ANGIE HAN Discharge instructions and discharge home medications reviewed with Patient and a copy given. All questions have been answered and understanding verbalized. The following instructions and handouts were given: Post pacemaker discharge instructions Discontinued lines and drains: Peripheral IV intact. Patient discharged to Home or Self Care with Self via Ambulated
== END 2019-02-04 15:40 | disposition home or self-care (01) ==
LOC: SURG 10:13 → 2 NORTH 14:16
PROVIDERS: ADMIT Internal Medicine Cardiovascular Disease; ATTEND Internal Medicine Cardiovascular Disease
DX: I25.5 Ischemic cardiomyopathy (principal); I11.0 Hypertensive heart disease with heart failure; I50.22 Chronic systolic (congestive) heart failure; I25.10 Atherosclerotic heart disease of native coronary artery without angina pectoris; E78.5 Hyperlipidemia, unspecified; E03.9 Hypothyroidism, unspecified
CPT/HCPCS: 33225; 33249; 36415; 71045; 71046; 80048; 85027; 85610; 93005; 93641; 96365; 96366; C1769; C1882; C1898; C1900; C2621; G0378; G0379; J0696; J2250; J2704; J3490; J7050; Q9967; 93565; 93566; J7030

== ENCOUNTER 2019-07-15 09:03 | Inpatient (IN) | payer BC ==
[~2019-07-15] VITALS: Ht 188 cm; Wt 71.4 kg
[~2019-07-15 09:03] MED LIST changes: -HYDROmorphone 2 MG/ML VIAL IV PRN; -IV RINGERS,LACTATED 1000ML 1,000 ML IV SCH; -LIDOCAINE 1% PF 2 ML VIAL. ID PRN; -MORPHINE SULFATE 2 MG/ML VIAL. IV PRN; -ONDANSETRON PF 4 MG/2 ML VIAL. IV PRN; -PROCHLORPERAZINE 10 MG/2 ML VIAL. IV PRN; -fentaNYL PF VIAL 100 MCG/2 ML VIAL IV PRN
--- NOTE | 2019-07-15 10:20 | RAD ---
PORTABLE CHEST 1V History: Shortness of air Comparison: February 04, 2019 Findings: Single view of the chest is submitted. There is increased interstitial opacity bilaterally most notable of the left lung base at which there is also mild hazy airspace opacity. There is also some increased perihilar opacity bilaterally. There is no pneumothorax. There is no significant dependent pleural fluid. There is again left electronic cardiac device. Pericardial cardiac silhouette is not considered significantly enlarged. Impression: 1. There is some increased perihilar and interstitial opacity as well as mild left base hazy airspace opacity. Distribution is more suggestive of edema although infectious infiltrate not excluded. Electronically signed by: Rick Dow MD (07/15/2019 10:17 AM) [facility]
--- NOTE | 2019-07-15 10:32 | PHYS DOC ---
Past Medical History Past Medical History: A-Fib, CAD, VA Past Surgical History: Other Additional Past Surgical Histo: Stent x1 placement Smoking Status: Current Every Day Smoker Alcohol Use: Occasionally Drug Use: None General Adult EDM: Chief Complaint: SHORTNESS OF BREATH HPI: HPI: Patient is a 64 year old male who presented to ER today for evaluation of trouble breathing with exertion since last night, he was not able to sleep flat on his back. Patient also had nonproductive cough for couple day, denies any fever. Patient said he was tested for COVID-19 and it came back negative on the 07/09. Patient denies any chest pain. Patient has history of CHF, however is not on any water pill, he has AICD. Review of Systems: Review of Systems: Constitutional: Denies fever or chills. [] Eyes: Denies change in visual acuity. [] HENT: Denies nasal congestion or sore throat. [] Respiratory: POSITIVE FOR cough or shortness of breath. [] Cardiovascular: Denies chest pain or edema. [] GI: Denies abdominal pain, nausea, vomiting, bloody stools or diarrhea. [] : Denies dysuria. [] Musculoskeletal: Denies back pain or joint pain. [] Integument: Denies rash. [] Neurologic: Denies headache, focal weakness or sensory changes. [] Endocrine: Denies polyuria or polydipsia. [] Lymphatic: Denies swollen glands. [] Psychiatric: Denies depression or anxiety. [] Heart Score: Risk Factors: Risk Factors: DM, Current or recent (<one month) smoker, HTN, HLP, family history of CAD, obesity. Risk Scores: Score 0 - 3: 2.5% MACE over next 6 weeks - Discharge Home Score 4 - 6: 20.3% MACE over next 6 weeks - Admit for Clinical Observation Score 7 - 10: 72.7% MACE over next 6 weeks - Early Invasive Strategies Allergies: Allergies: Allergies Coded Allergies Type Severity Reaction Last Updated Verified ticagrelor Allergy Severe Swelling 02/03/19 Yes Physical Exam: PE: Constitutional: Well developed, well nourished, no acute distress, non-toxic appearance. [] HENT: Normocephalic, atraumatic, bilateral external ears normal, oropharynx moist, no oral exudates, nose normal. [] Eyes: PERRLA, EOMI, conjunctiva normal, no discharge. [] Neck: Normal range of motion, no tenderness, supple, no stridor. [] Cardiovascular:Heart rate regular rhythm, no murmur [] Lungs & Thorax: Bilateral breath sounds clear to auscultation [] Abdomen: Bowel sounds normal, soft, no tenderness, no masses, no pulsatile masses. [] Skin: Warm, dry, no erythema, no rash. [] Back: No tenderness, no CVA tenderness. [] Extremities: No tenderness, no cyanosis, no clubbing, ROM intact, no edema. [] Neurologic: Alert and oriented X 3, normal motor function, normal sensory function, no focal deficits noted. [] Psychologic: Affect normal, judgement normal, mood normal. [] Current Patient Data: Vital Signs: Vital Signs Date Time Temp Pulse Resp B/P (MAP) Pulse Ox O2 Delivery O2 Flow Rate FiO2 07/15/19 09:15 98.2 70 18 122/84 (97) 99 Room Air 98.2 EKG: EKG: EKG was done at 946, heart rate of 68 bpm, no ST segment elevation. Sinus rhythm, right bundle branch block. Prolonged QT interval. EKG was read by this physician. Radiology/Procedures: Radiology/Procedures: [][facility] [address] [place], [place] [id number] IMAGING REPORT Signed PATIENT: ANGIE HAN ACCOUNT: [id number] : 1955 LOCATION: ER AGE: 64 SEX: M EXAM STATUS: PRE ER ORD. PHYSICIAN: ALE REED DO REASON: soa PROCEDURE: PORTABLE CHEST 1V PORTABLE CHEST 1V History: Shortness of air Comparison: February 04, 2019 Findings: Single view of the chest is submitted. There is increased interstitial opacity bilaterally most notable of the left lung base at which there is also mild hazy airspace opacity. There is also some increased perihilar opacity bilaterally. There is no pneumothorax. There is no significant dependent pleural fluid. There is again left electronic cardiac device. Pericardial cardiac silhouette is not considered significantly enlarged. Impression: 1. There is some increased perihilar and interstitial opacity as well as mild left base hazy airspace opacity. Distribution is more suggestive of edema although infectious infiltrate not excluded. Electronically signed by: Santos More MD (07/15/2019 10:17 AM) [facility] DICTATED and SIGNED BY: SANTOS MORE MD DATE: 07/15/19 1017 Course & Med Decision Making: Course & Med Decision Making Pertinent Labs and Imaging studies reviewed. (See chart for details) Patient is a 64-year-old man who presented to ER today for evaluation of exertional trouble breathing, his BNP elevated, chest x-ray showed pulmonary edema pattern. Patient WILL be admitted to hospital for further evaluation and treatment. Dragon Disclaimer: Dragon Disclaimer: This electronic medical record was generated, in whole or in part, using a voice recognition dictation system. Departure Departure Impression: Primary Impression: Acute exacerbation of CHF (congestive heart failure) Disposition: ADMITTED INPATIENT Admitting Physician: GORDO (DR. LIGHT) Condition: STABLE Referrals: ROBERT SHRESTHA MD (PCP) ALE REED DO July 15, 2019 10:32
[2019-07-15 10:45] LABS: BASO % 1 % (0-3); EOS # 0.1 x10^3/uL (0.0-0.7); EOS % 1 % (0-3); HEMATOCRIT 40.3 % (39.0-53.0); HEMOGLOBIN 13.6 g/dL (13.0-17.5); LYMPH % 23 % (24-48); MEAN CORPUSCULAR HEMOGLOBIN 32 pg (25-35); MEAN CORPUSCULAR HGB CONC 34 g/dL (31-37); MEAN CORPUSCULAR VOLUME 95 fL (79-100); MONO # 0.2 x10^3/uL (0.0-1.1); MONO % 5 % (0-9); NEUT # 3.2 x10^3/uL (1.8-7.7); NEUT % 70 % (31-73); PLATELET COUNT 158 x10^3/uL (140-400); RED BLOOD COUNT 4.24 x10^6/uL (4.30-5.70); RED CELL DISTRIBUTION WIDTH 14.1 % (11.5-14.5); WHITE BLOOD COUNT 4.5 x10^3/uL (4.0-11.0)
[2019-07-15 10:56] LABS: CALCIUM 8.7 mg/dL (8.5-10.1); CREATININE 1.1 mg/dL (0.7-1.3); GFR 81.5; POTASSIUM 3.7 mmol/L (3.5-5.1)
[2019-07-15 11:01] LABS: ALBUMIN 3.6 g/dL (3.4-5.0); ALBUMIN/GLOBULIN RATIO 1.1 (1.0-1.7); MAGNESIUM 1.8 mg/dL (1.8-2.4); TOTAL PROTEIN 6.8 g/dL (6.4-8.2)
[2019-07-15 11:10] LABS: PROTHROMBIN TIME PATIENT 14.1 SEC (11.7-14.0)
[2019-07-15] MEDS ORDERED: ONDANSETRON PF 4 MG/2 ML VIAL. IV PRN ×2 (12:30→14:30)
[2019-07-15] MEDS ORDERED: FUROSEMIDE 40 MG/4 ML VIAL. IVP ONE (12:30)
[2019-07-15] MEDS ORDERED: ASPIRIN 325 MG TABLET PO ONE (12:30)
[2019-07-15 13:40] VITALS: BP 120/81
--- NOTE | 2019-07-15 14:25 | PDOC1 ---
History and Physical Date of Admission Date of Admission DATE: 07/15/19 TIME: 14:21 Identification/Chief Complaint Chief Complaint Shortness of breath Source Source: Patient History of Present Illness History of Present Illness Mr Santana is a 63yo M w/ PMHx ischemic cardiomyopathy s/p BiV AICD 02/04/2020, reduced EF CHF 25-30%, HLD, HTN, tobacco abuse, CAD s/p YULIANA, and KS in April 2018 p/w trouble breathing with exertion since last night, he was not able to sleep flat on his back. Patient also had nonproductive cough for couple day, denies any fever. Patient said he was tested for COVID-19 and it came back negative on the 07/09. Patient denies any chest pain. Patient has history of CHF, not on diuretics regularly. He does note he didn't recall being on a fluid restriction and has been having 1-2 beers intermittently, still a regular smoker as well. CXR with bilateral interstitial opacities consistent with edema. Labs significant for BNP 3904, K 3.7, Mg 1.8, Cr 1.1. Trop 0.068. EKG HR 68 bpm, no ST segment elevation. Sinus rhythm, right bundle branch block. Prolonged QT interval. After 1 dose of lasix IV and large UOP he started feeling a bit improved. Admitted for further care. Past Medical History Cardiovascular: CAD, CHF, HTN, Hyperlipidemia Past Surgical History Past Surgical History: Other (AICD) Family History Family History: High Cholestrol, Hypertension Social History Smoke: 1 pack per day ALCOHOL: occassional Drugs: None Current Problem List Problem List Problems Medical Problems: (1) Acute exacerbation of CHF (congestive heart failure) Status: Acute Current Medications Current Medications Current Medications Aspirin (Joseline Aspirin) 325 mg 1X ONCE PO Last administered on 07/15/19at 12:22; Start 07/15/19 at 12:30; Stop 07/15/19 at 12:31; Status DC Furosemide (Lasix) 40 mg 1X ONCE IVP Last administered on 07/15/19at 12:23; Start 07/15/19 at 12:30; Stop 07/15/19 at 12:31; Status DC Ondansetron HCl (Zofran) 4 mg PRN Q8HRS PRN IV NAUSEA/VOMITING; Start 07/15/19 at 12:30; Stop 07/16/19 at 12:29 Active Scripts Active Nitrostat (Nitroglycerin) 0.4 Mg Tab.subl 0.4 Mg SL PRN Q5MIN PRN 30 Days PLEASE TAKE NEEDED FOR CHEST PAIN, REPEAT EVERY 5 MIN X 3 PLEASE CALL MD IF PAIN NOT RESOLVED AFTER THIRD DOSE. Aspirin Ec (Aspirin) 81 Mg Tablet. 81 Mg PO DAILYWBKFT Metoprolol Tartrate 25 Mg Tablet 12.5 Mg PO BID Atorvastatin Calcium 20 Mg Tablet 40 Mg PO QHS Reported Entresto 49 mg-51 mg Tablet (Sacubitril/Valsartan) 1 Each Tablet 1 Each PO DAILY Clopidogrel (Clopidogrel Bisulfate) 75 Mg Tablet 75 Mg PO DAILY Amiodarone Hcl 200 Mg Tablet 200 Mg PO BID Levothyroxine Sodium 100 Mcg Tablet 100 Mcg PO DAILYAC Allergies Allergies: Coded Allergies: ticagrelor (Verified Allergy, Severe, Swelling, 02/03/19) lisinopril (Verified Allergy, Unknown, facial swelling, 07/15/19) Physical Exam General: Alert, Oriented X3, Cooperative, No acute distress HEENT: Atraumatic, PERRLA, EOMI, Mucous membr. moist/pink Lungs: Other (Bibasilar crackles, mild wheezes) Heart: S1S2, RRR, no thrills, no rubs Abdomen: Normal bowel sounds, Soft, No tenderness, No hepatosplenomegaly, No masses Extremities: No clubbing, No cyanosis, Normal pulses, No tenderness/swelling, Other (1+ edema) Skin: No rashes, No breakdown, No significant lesion Neuro: Normal gait, Normal speech, Strength at 5/5 X4 ext, Normal tone, Sensation intact, Cranial nerves 3-12 NL, Reflexes 2+ Psych/Mental Status: Mental status NL, Mood NL Vitals Vitals Vital Signs Date Time Temp Pulse Resp B/P (MAP) Pulse Ox O2 Delivery O2 Flow Rate FiO2 07/15/19 13:40 97.8 67 18 120/81 (94) 95 Room Air 97.8 Labs Labs Laboratory Tests Test 07/15/19 10:30 White Blood Count 4.5 x10^3/uL (4.0-11.0) Red Blood Count 4.24 x10^6/uL (4.30-5.70) Hemoglobin 13.6 g/dL (13.0-17.5) Hematocrit 40.3 % (39.0-53.0) Mean Corpuscular Volume 95 fL (79-100) Mean Corpuscular Hemoglobin 32 pg (25-35) Mean Corpuscular Hemoglobin Concent 34 g/dL (31-37) Red Cell Distribution Width 14.1 % (11.5-14.5) Platelet Count 158 x10^3/uL (140-400) Neutrophils (%) (Auto) 70 % (31-73) Lymphocytes (%) (Auto) 23 % (24-48) Monocytes (%) (Auto) 5 % (0-9) Eosinophils (%) (Auto) 1 % (0-3) Basophils (%) (Auto) 1 % (0-3) Neutrophils # (Auto) 3.2 x10^3/uL (1.8-7.7) Lymphocytes # (Auto) 1.0 x10^3/uL (1.0-4.8) Monocytes # (Auto) 0.2 x10^3/uL (0.0-1.1) Eosinophils # (Auto) 0.1 x10^3/uL (0.0-0.7) Basophils # (Auto) 0.0 x10^3/uL (0.0-0.2) Prothrombin Time 14.1 SEC (11.7-14.0) Prothromb Time International Ratio 1.1 (0.8-1.1) Activated Partial Thromboplast Time 38 SEC (24-38) Sodium Level 139 mmol/L (136-145) Potassium Level 3.7 mmol/L (3.5-5.1) Chloride Level 103 mmol/L (98-107) Carbon Dioxide Level 26 mmol/L (21-32) Anion Gap 10 (6-14) Blood Urea Nitrogen 11 mg/dL (8-26) Creatinine 1.1 mg/dL (0.7-1.3) Estimated GFR (Cockcroft-Gault) 81.5 BUN/Creatinine Ratio 10 (6-20) Glucose Level 92 mg/dL (70-99) Calcium Level 8.7 mg/dL (8.5-10.1) Magnesium Level 1.8 mg/dL (1.8-2.4) Total Bilirubin 1.0 mg/dL (0.2-1.0) Aspartate Amino Transf (AST/SGOT) 20 U/L (15-37) Alanine Aminotransferase (ALT/SGPT) 21 U/L (16-63) Alkaline Phosphatase 78 U/L (46-116) Troponin I Quantitative 0.068 ng/mL (0.000-0.055) HY-Ulx-N-Type Natriuretic Peptide 3904 pg/mL (0-124) Total Protein 6.8 g/dL (6.4-8.2) Albumin 3.6 g/dL (3.4-5.0) Albumin/Globulin Ratio 1.1 (1.0-1.7) Laboratory Tests Test 07/15/19 10:30 White Blood Count 4.5 x10^3/uL (4.0-11.0) Red Blood Count 4.24 x10^6/uL (4.30-5.70) Hemoglobin 13.6 g/dL (13.0-17.5) Hematocrit 40.3 % (39.0-53.0) Mean Corpuscular Volume 95 fL (79-100) Mean Corpuscular Hemoglobin 32 pg (25-35) Mean Corpuscular Hemoglobin Concent 34 g/dL (31-37) Red Cell Distribution Width 14.1 % (11.5-14.5) Platelet Count 158 x10^3/uL (140-400) Neutrophils (%) (Auto) 70 % (31-73) Lymphocytes (%) (Auto) 23 % (24-48) Monocytes (%) (Auto) 5 % (0-9) Eosinophils (%) (Auto) 1 % (0-3) Basophils (%) (Auto) 1 % (0-3) Neutrophils # (Auto) 3.2 x10^3/uL (1.8-7.7) Lymphocytes # (Auto) 1.0 x10^3/uL (1.0-4.8) Monocytes # (Auto) 0.2 x10^3/uL (0.0-1.1) Eosinophils # (Auto) 0.1 x10^3/uL (0.0-0.7) Basophils # (Auto) 0.0 x10^3/uL (0.0-0.2) Prothrombin Time 14.1 SEC (11.7-14.0) Prothromb Time International Ratio 1.1 (0.8-1.1) Activated Partial Thromboplast Time 38 SEC (24-38) Sodium Level 139 mmol/L (136-145) Potassium Level 3.7 mmol/L (3.5-5.1) Chloride Level 103 mmol/L (98-107) Carbon Dioxide Level 26 mmol/L (21-32) Anion Gap 10 (6-14) Blood Urea Nitrogen 11 mg/dL (8-26) Creatinine 1.1 mg/dL (0.7-1.3) Estimated GFR (Cockcroft-Gault) 81.5 BUN/Creatinine Ratio 10 (6-20) Glucose Level 92 mg/dL (70-99) Calcium Level 8.7 mg/dL (8.5-10.1) Magnesium Level 1.8 mg/dL (1.8-2.4) Total Bilirubin 1.0 mg/dL (0.2-1.0) Aspartate Amino Transf (AST/SGOT) 20 U/L (15-37) Alanine Aminotransferase (ALT/SGPT) 21 U/L (16-63) Alkaline Phosphatase 78 U/L (46-116) Troponin I Quantitative 0.068 ng/mL (0.000-0.055) JX-Yba-G-Type Natriuretic Peptide 3904 pg/mL (0-124) Total Protein 6.8 g/dL (6.4-8.2) Albumin 3.6 g/dL (3.4-5.0) Albumin/Globulin Ratio 1.1 (1.0-1.7) Images Images CXR There is increased interstitial opacity bilaterally most notable of the left lung base at which there is also mild hazy airspace opacity. There is also some increased perihilar opacity bilaterally. There is no pneumothorax. There is no significant dependent pleural fluid. There is again left electronic cardiac device. Pericardial cardiac silhouette is not considered significantly enlarged. Impression: 1. There is some increased perihilar and interstitial opacity as well as mild left base hazy airspace opacity. Distribution is more suggestive of edema although infectious infiltrate not excluded. VTE Prophylaxis Ordered VTE Prophylaxis Devices: Yes VTE Pharmacological Prophylaxi: Yes Assessment/Plan Assessment/Plan A/P: Shortness of breath - with CXR more consistent with CHF exacerbation, no other COVID sx or contacts and recent negative testing, this will be treated as CHF exacerbation. Follow K and mag Ischemic cardiomyopathy - with biventricular block, wide QRS, reduced EF 25%, now s/p AICD placement on 02/03. Cardiology to see. Systolic CHF - EF 25-30% seems decompensated. Advised ETOH reduction and fluid restriction, daily weights. Cardiology consulted. IV lasix ordered. Entresto, Metoprolol. Statin, asa ordered. RBBB - stable HLD - on statin HTN - well managed Tobacco abuse - counseled on cessation and high risk recurrent CAD CAD s/p YULIANA - stable, will have cardiology to see. On BB, statin, ASA, and plavix therapy FEN - Cardiac diet, 1L fluid restriction PPX - lovenox FULL CODE Dispo -inpatient for acute CHF exacerbation likely 2 midnights LEXY LIGHT MD July 15, 2019 14:25
[2019-07-15] MEDS ORDERED: FUROSEMIDE 40 MG/4 ML VIAL. IVP SCH (14:30)
[2019-07-15] MEDS ORDERED: NITROGLYCERIN SUBLINGUAL 0.4 MG BOTTLE OF 25. SL PRN (14:30)
[2019-07-15 14:40] VITALS: BP 123/77
[2019-07-15] MEDS: SACUBITRIL/VALSARTAN 49/51MG TABLET. PO SCH (14:52)
[2019-07-15] MEDS: LEVOTHYROXINE 100 MCG TABLET PO SCH (14:52)
[2019-07-15] MEDS: CLOPIDOGREL BISULFATE 75 MG TABLET PO SCH (14:52)
[2019-07-15] MEDS: AMIODARONE HCL 200 MG TABLET. PO SCH ×2 (14:52→20:57)
[2019-07-15] MEDS: METOPROLOL TART IMMED RELEASE 25 MG TABLET. PO SCH ×2 (14:53→20:57)
[2019-07-15] MEDS ORDERED: ENOXAPARIN 40 MG/0.4 ML SYRINGE. SQ SCH (16:00)
[2019-07-15 19:45] VITALS: BP 101/71
[2019-07-15] MEDS ORDERED: ATORVASTATIN CALCIUM 40 MG TABLET. PO SCH (21:00)
[2019-07-15] MEDS ORDERED: ALBUTEROL SULFATE 2.5 MG/3 ML NEBU. NEB PRN (23:00)
[2019-07-15] MEDS ORDERED: POTASSIUM CHLORIDE 20 MEQ TABLET.ER. PO ONE (23:15)
[2019-07-15] MEDS ORDERED: MAGNESIUM SULFATE 2GM 50 ML IV ONE (23:15)
[2019-07-15 23:45] VITALS: BP 97/65
[2019-07-16 02:20] VITALS: BP 102/66
[2019-07-16] MEDS: LEVOTHYROXINE 100 MCG TABLET PO SCH (05:57)
[2019-07-16 06:03] LABS: CALCIUM 8.2 mg/dL (8.5-10.1); CREATININE 1.4 mg/dL (0.7-1.3); GFR 61.7; MAGNESIUM 2.3 mg/dL (1.8-2.4); POTASSIUM 3.5 mmol/L (3.5-5.1)
[2019-07-16 07:00] VITALS: BP 112/75
[2019-07-16] MEDS ORDERED: ASPIRIN ENTERIC COATED 81 MG TABLET.DR. PO SCH (08:00)
[2019-07-16] MEDS: SACUBITRIL/VALSARTAN 49/51MG TABLET. PO SCH (08:37)
[2019-07-16] MEDS: AMIODARONE HCL 200 MG TABLET. PO SCH (08:38)
[2019-07-16] MEDS: CLOPIDOGREL BISULFATE 75 MG TABLET PO SCH (08:38)
[2019-07-16] MEDS: METOPROLOL TART IMMED RELEASE 25 MG TABLET. PO SCH (08:38)
[2019-07-16] MEDS ORDERED: POTASSIUM CHLORIDE 10 MEQ TABLET.ER. PO SCH (09:30)
[2019-07-16] MEDS ORDERED: FUROSEMIDE 40 MG TABLET. PO SCH (09:30)
--- NOTE | 2019-07-16 09:54 | PDOC2 ---
CONSULT Date of Consult Date of Consult DATE: 07/16/19 TIME: 09:54 Reason for Consult Reason for Consult: Congestive heart failure Referring Physician Referring Physician: Dr. 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 Carter presented complaining of shortness of breath and orthopnea. He denied any chest pain, palpitations or syncope. He symptoms significantly improved since admission with diuresis. He claimed compliance with medications, diet and salt intake. Past Medical History Cardiovascular: CAD, CHF, HTN, Hyperlipidemia Past Surgical History Past Surgical History: Other (AICD) Family History Family History: High Cholestrol, Hypertension Social History 1 pack per day ALCOHOL: occassional Drugs: None Current Problem List Problem List Problems Medical Problems: (1) Acute exacerbation of CHF (congestive heart failure) Status: Acute Current Medications Current Medications Current Medications Aspirin (Joseline Aspirin) 325 mg 1X ONCE PO Last administered on 07/15/19at 12:22; Start 07/15/19 at 12:30; Stop 07/15/19 at 12:31; Status DC Furosemide (Lasix) 40 mg 1X ONCE IVP Last administered on 07/15/19at 12:23; Start 07/15/19 at 12:30; Stop 07/15/19 at 12:31; Status DC Ondansetron HCl (Zofran) 4 mg PRN Q8HRS PRN IV NAUSEA/VOMITING; Start 07/15/19 at 12:30; Stop 07/15/19 at 14:25; Status DC Ondansetron HCl (Zofran) 4 mg PRN Q4HRS PRN IV NAUSEA/VOMITING; Start 07/15/19 at 14:30 Amiodarone HCl (Cordarone) 200 mg BID PO Last administered on 07/16/19at 08:38; Start 07/15/19 at 15:00 Aspirin (Ecotrin) 81 mg DAILYWBKFT PO Last administered on 07/16/19at 08:38; Start 07/16/19 at 08:00 Atorvastatin Calcium (Lipitor) 40 mg QHS PO Last administered on 07/15/19at 20:56; Start 07/15/19 at 21:00 Clopidogrel Bisulfate (Plavix) 75 mg DAILY PO Last administered on 07/16/19at 08:38; Start 07/15/19 at 15:00 Levothyroxine Sodium (Synthroid) 100 mcg DAILYAC PO Last administered on 07/16/19at 05:57; Start 07/15/19 at 15:00 Metoprolol Tartrate (Lopressor) 12.5 mg BID PO Last administered on 07/16/19at 08:38; Start 07/15/19 at 15:00 Nitroglycerin (Nitrostat) 0.4 mg PRN Q5MIN PRN SL CHEST PAIN; Start 07/15/19 at 14:30 Sacubitril/ Valsartan (Entresto 49 Mg-51 Mg) 1 tab DAILY PO Last administered on 07/16/19at 08:37; Start 07/15/19 at 15:00 Furosemide (Lasix) 40 mg BID92 IVP Last administered on 07/15/19at 14:55; Start 07/15/19 at 14:30; Stop 07/16/19 at 09:25; Status DC Enoxaparin Sodium (Lovenox 40mg Syringe) 40 mg Q24H SQ Last administered on 07/15/19at 14:53; Start 07/15/19 at 16:00 Potassium Chloride (Klor-Con) 40 meq 1X ONCE PO Last administered on 07/16/19at 00:19; Start 07/15/19 at 23:15; Stop 07/15/19 at 23:16; Status DC Magnesium Sulfate 50 ml @ 25 mls/hr 1X ONCE IV Last administered on 07/16/19at 00:20; Start 07/15/19 at 23:15; Stop 07/16/19 at 01:14; Status DC Albuterol Sulfate (Ventolin Neb Soln) 2.5 mg PRN Q4HRS PRN NEB SHORTNESS OF BREATH; Start 07/15/19 at 23:00 Furosemide (Lasix) 40 mg DAILY PO Last administered on 07/16/19at 09:30; Start 07/16/19 at 09:30 Potassium Chloride (Klor-Con) 10 meq DAILYWBKFT PO Last administered on 07/16/19at 09:30; Start 07/16/19 at 09:30 Active Scripts Active Nitrostat (Nitroglycerin) 0.4 Mg Tab.subl 0.4 Mg SL PRN Q5MIN PRN 30 Days PLEASE TAKE NEEDED FOR CHEST PAIN, REPEAT EVERY 5 MIN X 3 PLEASE CALL MD IF PAIN NOT RESOLVED AFTER THIRD DOSE. Aspirin Ec (Aspirin) 81 Mg Tablet.dr 81 Mg PO DAILYWBKFT Metoprolol Tartrate 25 Mg Tablet 12.5 Mg PO BID Atorvastatin Calcium 20 Mg Tablet 40 Mg PO QHS Reported Entresto 49 mg-51 mg Tablet (Sacubitril/Valsartan) 1 Each Tablet 1 Each PO DAILY Clopidogrel (Clopidogrel Bisulfate) 75 Mg Tablet 75 Mg PO DAILY Amiodarone Hcl 200 Mg Tablet 200 Mg PO BID Levothyroxine Sodium 100 Mcg Tablet 100 Mcg PO DAILYAC Allergies Allergies: Coded Allergies: ticagrelor (Verified Allergy, Severe, Swelling, 02/03/19) lisinopril (Verified Allergy, Unknown, facial swelling, 07/15/19) ROS PSYCHOLOGICAL ROS: No: Hallucinations Eyes: No Loss of vision HEENT: No: Epistaxis Respiratory: YES: Cough, Orthopnea, Shortness of breath Cardiovascular: No Chest Pain, No Palpitations Gastrointestinal: No Vomiting, No Diarrhea Genitourinary: No Hematuria Neurological: No Seizures Skin: No Rash Physical Exam General: Alert, Oriented X3 HEENT: Atraumatic, PERRLA Lungs: Clear to auscultation Heart: Regular rate, No murmurs Abdomen: Soft, No tenderness Extremities: No edema Neuro: Normal speech Psych/Mental Status: Mental status NL, Mood NL Vitals VITALS Vital Signs Date Time Temp Pulse Resp B/P (MAP) Pulse Ox O2 Delivery O2 Flow Rate FiO2 07/16/19 08:38 62 112/75 07/16/19 08:00 Room Air 07/16/19 07:00 97.8 18 95 97.8 Labs Labs Laboratory Tests Test 07/15/19 10:30 07/16/19 04:00 White Blood Count 4.5 x10^3/uL (4.0-11.0) Red Blood Count 4.24 x10^6/uL (4.30-5.70) Hemoglobin 13.6 g/dL (13.0-17.5) Hematocrit 40.3 % (39.0-53.0) Mean Corpuscular Volume 95 fL (79-100) Mean Corpuscular Hemoglobin 32 pg (25-35) Mean Corpuscular Hemoglobin Concent 34 g/dL (31-37) Red Cell Distribution Width 14.1 % (11.5-14.5) Platelet Count 158 x10^3/uL (140-400) Neutrophils (%) (Auto) 70 % (31-73) Lymphocytes (%) (Auto) 23 % (24-48) Monocytes (%) (Auto) 5 % (0-9) Eosinophils (%) (Auto) 1 % (0-3) Basophils (%) (Auto) 1 % (0-3) Neutrophils # (Auto) 3.2 x10^3/uL (1.8-7.7) Lymphocytes # (Auto) 1.0 x10^3/uL (1.0-4.8) Monocytes # (Auto) 0.2 x10^3/uL (0.0-1.1) Eosinophils # (Auto) 0.1 x10^3/uL (0.0-0.7) Basophils # (Auto) 0.0 x10^3/uL (0.0-0.2) Prothrombin Time 14.1 SEC (11.7-14.0) Prothromb Time International Ratio 1.1 (0.8-1.1) Activated Partial Thromboplast Time 38 SEC (24-38) Sodium Level 139 mmol/L (136-145) 140 mmol/L (136-145) Potassium Level 3.7 mmol/L (3.5-5.1) 3.5 mmol/L (3.5-5.1) Chloride Level 103 mmol/L (98-107) 104 mmol/L (98-107) Carbon Dioxide Level 26 mmol/L (21-32) 25 mmol/L (21-32) Anion Gap 10 (6-14) 11 (6-14) Blood Urea Nitrogen 11 mg/dL (8-26) 15 mg/dL (8-26) Creatinine 1.1 mg/dL (0.7-1.3) 1.4 mg/dL (0.7-1.3) Estimated GFR (Cockcroft-Gault) 81.5 61.7 BUN/Creatinine Ratio 10 (6-20) Glucose Level 92 mg/dL (70-99) 102 mg/dL (70-99) Calcium Level 8.7 mg/dL (8.5-10.1) 8.2 mg/dL (8.5-10.1) Magnesium Level 1.8 mg/dL (1.8-2.4) 2.3 mg/dL (1.8-2.4) Total Bilirubin 1.0 mg/dL (0.2-1.0) Aspartate Amino Transf (AST/SGOT) 20 U/L (15-37) Alanine Aminotransferase (ALT/SGPT) 21 U/L (16-63) Alkaline Phosphatase 78 U/L (46-116) Troponin I Quantitative 0.068 ng/mL (0.000-0.055) 0.066 ng/mL (0.000-0.055) GG-Kfg-B-Type Natriuretic Peptide 3904 pg/mL (0-124) Total Protein 6.8 g/dL (6.4-8.2) Albumin 3.6 g/dL (3.4-5.0) Albumin/Globulin Ratio 1.1 (1.0-1.7) Laboratory Tests Test 07/15/19 10:30 07/16/19 04:00 White Blood Count 4.5 x10^3/uL (4.0-11.0) Red Blood Count 4.24 x10^6/uL (4.30-5.70) Hemoglobin 13.6 g/dL (13.0-17.5) Hematocrit 40.3 % (39.0-53.0) Mean Corpuscular Volume 95 fL (79-100) Mean Corpuscular Hemoglobin 32 pg (25-35) Mean Corpuscular Hemoglobin Concent 34 g/dL (31-37) Red Cell Distribution Width 14.1 % (11.5-14.5) Platelet Count 158 x10^3/uL (140-400) Neutrophils (%) (Auto) 70 % (31-73) Lymphocytes (%) (Auto) 23 % (24-48) Monocytes (%) (Auto) 5 % (0-9) Eosinophils (%) (Auto) 1 % (0-3) Basophils (%) (Auto) 1 % (0-3) Neutrophils # (Auto) 3.2 x10^3/uL (1.8-7.7) Lymphocytes # (Auto) 1.0 x10^3/uL (1.0-4.8) Monocytes # (Auto) 0.2 x10^3/uL (0.0-1.1) Eosinophils # (Auto) 0.1 x10^3/uL (0.0-0.7) Basophils # (Auto) 0.0 x10^3/uL (0.0-0.2) Prothrombin Time 14.1 SEC (11.7-14.0) Prothromb Time International Ratio 1.1 (0.8-1.1) Activated Partial Thromboplast Time 38 SEC (24-38) Sodium Level 139 mmol/L (136-145) 140 mmol/L (136-145) Potassium Level 3.7 mmol/L (3.5-5.1) 3.5 mmol/L (3.5-5.1) Chloride Level 103 mmol/L (98-107) 104 mmol/L (98-107) Carbon Dioxide Level 26 mmol/L (21-32) 25 mmol/L (21-32) Anion Gap 10 (6-14) 11 (6-14) Blood Urea Nitrogen 11 mg/dL (8-26) 15 mg/dL (8-26) Creatinine 1.1 mg/dL (0.7-1.3) 1.4 mg/dL (0.7-1.3) Estimated GFR (Cockcroft-Gault) 81.5 61.7 BUN/Creatinine Ratio 10 (6-20) Glucose Level 92 mg/dL (70-99) 102 mg/dL (70-99) Calcium Level 8.7 mg/dL (8.5-10.1) 8.2 mg/dL (8.5-10.1) Magnesium Level 1.8 mg/dL (1.8-2.4) 2.3 mg/dL (1.8-2.4) Total Bilirubin 1.0 mg/dL (0.2-1.0) Aspartate Amino Transf (AST/SGOT) 20 U/L (15-37) Alanine Aminotransferase (ALT/SGPT) 21 U/L (16-63) Alkaline Phosphatase 78 U/L (46-116) Troponin I Quantitative 0.068 ng/mL (0.000-0.055) 0.066 ng/mL (0.000-0.055) WK-Egw-X-Type Natriuretic Peptide 3904 pg/mL (0-124) Total Protein 6.8 g/dL (6.4-8.2) Albumin 3.6 g/dL (3.4-5.0) Albumin/Globulin Ratio 1.1 (1.0-1.7) Assessment/Plan Assessment/Plan 1. Acute on chronic systolic heart failure. Much better compensated with diuresis. 2D echocardiogram in November 2018 showed LVEF 25 to 30%. Continue Lasix orally. 2. Coronary artery disease s/p PCI/YULIANA to LAD, clinically stable and chest pain-free. Slight troponin elevation probably demand ischemia. Continue current secondary prevention measures. 3. Ischemic cardiomyopathy s/p biventricular ICD/DIETITIAN TEACHER-D implantation. Recent device check in April 2019 showed normal function. 4. Hypertension: Controlled 5. Hyperlipidemia: Continue statin therapy 6. Hypothyroidism: Continue levothyroxine 7. Patient is currently on amiodarone for uncertain reasons. I will clarify this with primary supervisor assembly room. Thank you for your consultation. MAGED SERRATO MD July 16, 2019 09:54
[2019-07-16 11:00] VITALS: BP 120/89
[2019-07-16] MEDS ORDERED: POTA10TA12 PO (13:22)
[2019-07-16] MEDS ORDERED: FURO-68 PO (13:22)
--- NOTE | 2019-07-16 14:15 | NUR ---
DISCHARGED PATIENT TO HOME. INSTRUCTIONS GIVEN TO PATIENT AND VERBALIZED UNDERSTANDING. PIV AND HEART MONITOR REMOVED. ESCORTED PATIENT OFF UNIT INTO A PRIVATE VEHICLE.
--- NOTE | 2019-07-16 14:31 | DS ---
DATE OF DISCHARGE: 07/16/2019 ADMISSION DIAGNOSIS: Acute on chronic systolic and diastolic heart failure. DISCHARGE DIAGNOSIS: Resolving heart failure. CONSULTS: Cardiology. PROCEDURES: None. HOSPITAL COURSE: The patient is a pleasant middle-aged male, who presented with heart failure. He was admitted. We diuresed him. We consulted Cardiology, did serial enzymes, serial EKGs, echocardiogram and cardiac monitoring. Today, he was seen by Cardiology. They are okay with him going home. I examined the patient as well. PHYSICAL EXAMINATION: HEART: Tones are normal. LUNGS: Clear. ABDOMEN: Soft. EXTREMITIES: No edema. He wants to go home. DISPOSITION: Home. ACTIVITY: As tolerated. DIET: Low sodium. MEDICATIONS: Please see the MRAD. TOTAL TIME: 33 minutes. SHU NICHOLSON DO DR: JENSEN/abram JOB#: [id number] / [id number]
--- NOTE | 2019-07-17 07:06 | EKG ---
[facility] [address] [place] [address] Test Date: 2019-07-15 Test Time: 09:46:53 Pat Name: ANGIE HAN Department: Room: 201 1 Gender: M Illusionist: : 1955 Requested By: LAE REED Order Number: [id number] Reading MD: Negro Martinez MD Measurements Intervals Gary Rate: 68 P: 50 AL: 136 QRS: 221 QRSD: 162 T: 27 QT: 504 QTc: 542 Interpretive Statements SINUS RHYTHM BI-V PACING Electronically Signed On 07-17-2019 9:20:44 CDT by Negro Martinez MD
== END 2019-07-16 14:15 | disposition home or self-care (01) | DRG 293 ==
LOC: ER 09:03 → 2 NORTH 12:20
PROVIDERS: ADMIT Internal Medicine; ATTEND Internal Medicine
DX: I11.0 Hypertensive heart disease with heart failure (principal); E03.9 Hypothyroidism, unspecified; I50.23 Acute on chronic systolic (congestive) heart failure; E78.5 Hyperlipidemia, unspecified; F17.210 Nicotine dependence, cigarettes, uncomplicated; I25.10 Atherosclerotic heart disease of native coronary artery without angina pectoris; I25.2 Old myocardial infarction; I25.5 Ischemic cardiomyopathy; I45.10 Unspecified right bundle-branch block; I48.91 Unspecified atrial fibrillation; Z82.49 Family history of ischemic heart disease and other diseases of the circulatory system; Z95.5 Presence of coronary angioplasty implant and graft; Z95.810 Presence of automatic (implantable) cardiac defibrillator; Z88.8 Allergy status to other drugs, medicaments and biological substances
CPT/HCPCS: 36415; 71045; 80048; 80053; 83735; 83880; 84484; 85025; 85610; 85730; 93005; J1650; J1940; J3475; G0378

== ENCOUNTER 2019-10-06 10:51 | Inpatient (IN) | payer BC ==
[~2019-10-06] VITALS: Ht 188 cm; Wt 82.0 kg
[~2019-10-06 10:51] MED LIST changes: -ASPI-612 PO; +ASPI-886 PO; +FURO-68 PO; +POTA10TA12 PO
--- NOTE | 2019-10-06 12:25 | PHYS DOC ---
Past Medical History Past Medical History: A-Fib, CAD, [place] Additional Past Medical Histor: TWO CARDIAC STENTS Past Surgical History: Pacemaker, Other Additional Past Surgical Histo: Stent x1 placement, PATIENT HAS DEFIBERLATOR PLACED NOV 2018 Smoking Status: Current Every Day Smoker Alcohol Use: Occasionally Drug Use: None General Adult EDM: Chief Complaint: SHORTNESS OF BREATH HPI: HPI: Patient is a 64 year old AA male who presents to the emergency department with complaints of increased shortness of breath. Patient states that 5 days ago he developed a productive cough with clear sputum, shortness of breath, fatigue, and intermittent fever and chills. He denies any known exposure to COVID-19. Patient states that he saw his primary care physician Dr. Newman, yesterday who swabbed him for COVID-19 but he does not know the results of the test yet. He denies any abdominal pain, nausea, vomiting, diarrhea, sore throat, ear pain, headache, or body aches. He also denies any chest pain, palpitations, extremity swelling, or rash. Patient states that his shortness of breath increases with minimal activity. He currently denies any pain. Review of Systems: Review of Systems: Constitutional: See HPI Eyes: Denies change in visual acuity. [] HENT: Denies nasal congestion, ear pain, or sore throat. [] Respiratory: See HPI Cardiovascular: Denies chest pain or edema. [] GI: Denies abdominal pain, nausea, vomiting, or diarrhea. [] Musculoskeletal: Denies back pain or joint pain. [] Integument: Denies rash. [] Neurologic: Denies headache, focal weakness or sensory changes. [] Lymphatic: Denies swollen glands. [] Psychiatric: Denies depression or anxiety. [] Heart Score: Risk Factors: Risk Factors: DM, Current or recent (<one month) smoker, HTN, HLP, family history of CAD, obesity. Risk Scores: Score 0 - 3: 2.5% MACE over next 6 weeks - Discharge Home Score 4 - 6: 20.3% MACE over next 6 weeks - Admit for Clinical Observation Score 7 - 10: 72.7% MACE over next 6 weeks - Early Invasive Strategies Allergies: Allergies: Allergies Coded Allergies Type Severity Reaction Last Updated Verified ticagrelor Allergy Severe Swelling 02/03/19 Yes lisinopril Allergy Intermediate facial swelling 07/16/19 Yes Physical Exam: PE: Constitutional: Well developed, well nourished, no acute distress, non-toxic appearance. [] HENT: Normocephalic, atraumatic, bilateral external ears normal, nose normal. [] Eyes: PERRLA, conjunctiva normal, no discharge. [] Neck: Normal range of motion, no stridor. [] Cardiovascular: Heart rate regular rhythm, no murmur Lungs & Thorax: Lungs clear in upper levy bilaterally, respirations even and unlabored, no retractions, no respiratory distress; lung sounds diminished in bilateral bases with crackles present in bilateral bases, posterior right levy are diminished throughout Abdomen: soft, no tenderness Back: Nontender to palpation Skin: Warm, dry, no erythema, no rash. [] Extremities: No cyanosis, ROM intact, no edema. [] Neurologic: Alert and oriented X 3, no focal deficits noted. [] Psychologic: Affect normal, judgement normal, mood normal. [] Current Patient Data: Vital Signs: Vital Signs Date Time Temp Pulse Resp B/P (MAP) Pulse Ox O2 Delivery O2 Flow Rate FiO2 10/06/19 11:27 96.8 65 22 112/74 (87) 98 Room Air 96.8 EKG: EK-sinus rhythm, rate 67, left anterior fascicular block, no STEMI, read by Dr. Reddy Radiology/Procedures: Radiology/Procedures: PROCEDURE: CHEST AP ONLY EXAM: CHEST AP ONLY INDICATION: Reason: n/v/d, PUI / Spl. Instructions: / History: . TECHNIQUE: Single view COMPARISON: 07/15/2019 chest x-ray FINDINGS: Left chest multichamber pacemaker. The heart size is enlarged. The great vessels appear unremarkable. There is no hilar or mediastinal mass. Lungs show mild vascular congestion with mild atelectatic changes in the medial left base. These findings are slightly worse than before. There is no pleural effusion or pneumothorax. There are no significant osseous abnormalities. IMPRESSION: Cardiac megaly and pulmonary vascular congestion, slightly worse in the interval with developing medial left basilar atelectasis.[] Course & Med Decision Making: Course & Med Decision Making Pertinent Labs and Imaging studies reviewed. (See chart for details) 1257- Spoke with Anna BALLING HEAD TENDER with cardiology and advised of elevated troponin and CHF. Pt has been given ASA in the ER, will order 40 mg of lasix per July. Will admit pt to hospitalist. Advised Dr. Egan that I have consulted cardiology, will put in pulmonary consult as requested. Advised Dr. Matson that d-dimer result is still pending, will add CK index and PT/INR. 1308-spoke with Dr. Egan who is the admitting physician, and care was assumed following discussion of patient. Will admit patient for POI, elevated troponin, and CHF exacerbation. Advised that patient has been given an aspirin and 40 mg of Lasix p.o. Patient's vital signs stable. Patient remains afebrile, appears nontoxic, respirations even and unlabored. Patient will be admitted to the CVC floor. Patient's case and plan of care also discussed with Dr. Reddy. COVID-19 CRITERIA: The patient was evaluated during the global COVID-19 pandemic, and that diagnosis was suspected/considered upon their initial presentation. Their evaluation, treatment and testing was consistent with current guidelines for patients who present with complaints or symptoms that may be related to COVID-19. [] Dragon Disclaimer: Dragon Disclaimer: This electronic medical record was generated, in whole or in part, using a voice recognition dictation system. Departure Departure Impression: Primary Impression: Person under investigation for COVID-19 Additional Impressions: Troponin level elevated CHF (congestive heart failure) Qualified Codes: I50.9 - Heart failure, unspecified Disposition: ADMITTED INPATIENT Admitting Physician: GORDO Curtis) Condition: STABLE Referrals: ROBERT NEWMAN MD (PCP) Justicifation of Admission Dx: Justifications for Admission: Justification of Admission Dx: Yes [place]: Acute NSTEMI (ELEVATED TROPONIN) COVID-19 Assessment: COVID-19 Patient Risks: Age 65 or older: No Sign of co-morbidity: No Exp to person + for COVID: No Exp to PUI: No Travel from affected area: No Lower respiratory symptoms: Yes Fever: No PPE Use: Full PPE with N95 mask or PAPR: Yes (n95, face sheild, gown, gloves) LILA COKER APRN Oct 06, 2019 12:25
[2019-10-06 12:28] LABS: BASO % 1 % (0-3); EOS % 0 % (0-3); HEMATOCRIT 39.9 % (39.0-53.0); HEMOGLOBIN 13.3 g/dL (13.0-17.5); LYMPH # 0.4 x10^3/uL (1.0-4.8); LYMPH % 10 % (24-48); MEAN CORPUSCULAR HEMOGLOBIN 32 pg (25-35); MEAN CORPUSCULAR HGB CONC 33 g/dL (31-37); MEAN CORPUSCULAR VOLUME 95 fL (79-100); MONO # 0.1 x10^3/uL (0.0-1.1); MONO % 2 % (0-9); NEUT # 3.7 x10^3/uL (1.8-7.7); NEUT % 87 % (31-73); PLATELET COUNT 168 x10^3/uL (140-400); RED BLOOD COUNT 4.22 x10^6/uL (4.30-5.70); RED CELL DISTRIBUTION WIDTH 15.4 % (11.5-14.5); WHITE BLOOD COUNT 4.3 x10^3/uL (4.0-11.0)
[2019-10-06 12:46] LABS: CALCIUM 8.8 mg/dL (8.5-10.1); CREATININE 1.2 mg/dL (0.7-1.3); GFR 73.8; POTASSIUM 3.7 mmol/L (3.5-5.1)
[2019-10-06] MEDS ORDERED: ASPIRIN 325 MG TABLET PO ONE (13:00)
[2019-10-06 13:03] LABS: ALBUMIN 3.6 g/dL (3.4-5.0); ALBUMIN/GLOBULIN RATIO 0.9 (1.0-1.7); C-REACTIVE PROTEIN 30.9 mg/L (0-3.3); MAGNESIUM 2.1 mg/dL (1.8-2.4); TOTAL BILIRUBIN 0.9 mg/dL (0.2-1.0); TOTAL PROTEIN 7.4 g/dL (6.4-8.2)
[2019-10-06] MEDS ORDERED: FUROSEMIDE 40 MG TABLET. PO ONE (13:15)
--- NOTE | 2019-10-06 13:27 | PDOC2 ---
MONA VALENCIA WAIST PLEATER 10/06/19 1327: CARDIAC CONSULT DATE OF CONSULT Date of Consult DATE: 10/06/19 TIME: 13:12 REASON FOR CONSULT Reason for Consult: CHF, elevated troponin, SOA REFERRING PHYSICIAN Referring Physician: Luis SOURCE Source: Chart review, Patient HISTORY OF PRESENT ILLNESS HISTORY OF PRESENT ILLNESS This is a pleasant 64 yo male admitted for complains of SOA. This has been going on in the last week resulting to orthopnea, PND, insomnia but no significant peripheral edema. Positive for nonproductive cough with no ageusia or anosmia or any fever or chills. No chest pain, palpitations, n/v/d. No recent falls or injury. He has gained about 3 pounds in the last few days. PAST MEDICAL HISTORY Cardiovascular: CAD, CHF, HTN, AR, Hyperlipidemia, Other (ICM) Pulmonary: No pertinent hx Musculoskeletal: Osteoarthritis Endocrine: Hypothyroidism PAST SURGICAL HISTORY Past Surgical History: Pacemaker (MEDICAID BILLING SPECIALIST-D biotronik), Other (PCI/YULIANA to LAD) FAMILY HISTORY Family History: Diabetes, Heart Disease, Stroke SOCIAL HISTORY Smoke: <1 pack per day ALCOHOL: rare Drugs: None CURRENT MEDICATIONS CURRENT MEDICATIONS Current Medications Medications (Trade) Dose Ordered Sig/Promise Route PRN Reason Start Time Stop Time Status Last Admin Dose Admin Aspirin (Joseline Aspirin) 325 mg 1X ONCE PO 10/06/19 13:00 10/06/19 13:01 DC 10/06/19 12:55 ALLERGIES ALLERGIES: Coded Allergies: ticagrelor (Verified Allergy, Severe, Swelling, 02/03/19) lisinopril (Verified Allergy, Intermediate, facial swelling, 07/16/19) ROS Review of System 14 point ROS evaluated with pertinent positives noted per HPI PHYSICAL EXAM General: Alert, Oriented X3, Cooperative, No acute distress HEENT: Atraumatic, Mucous membr. moist/pink Lungs: Other (basilar crackles) Heart: Regular rate (paced) Abdomen: Soft, No tenderness Extremities: No cyanosis Skin: No breakdown, No significant lesion Neuro: Normal speech, Sensation intact Psych/Mental Status: Mental status NL, Mood NL MUSCULOSKELETAL: Osteoarthritic changes both hands VITALS/I&O VITALS/I&O: Vital Signs Date Time Temp Pulse Resp B/P (MAP) Pulse Ox O2 Delivery O2 Flow Rate FiO2 10/06/19 12:36 66 20 121/75 (90) 98 Room Air 10/06/19 11:27 96.8 96.8 LABS Lab: Laboratory Tests Test 10/06/19 11:55 White Blood Count 4.3 x10^3/uL (4.0-11.0) Red Blood Count 4.22 x10^6/uL (4.30-5.70) L Hemoglobin 13.3 g/dL (13.0-17.5) Hematocrit 39.9 % (39.0-53.0) Mean Corpuscular Volume 95 fL (79-100) Mean Corpuscular Hemoglobin 32 pg (25-35) Mean Corpuscular Hemoglobin Concent 33 g/dL (31-37) Red Cell Distribution Width 15.4 % (11.5-14.5) H Platelet Count 168 x10^3/uL (140-400) Neutrophils (%) (Auto) 87 % (31-73) H Lymphocytes (%) (Auto) 10 % (24-48) L Monocytes (%) (Auto) 2 % (0-9) Eosinophils (%) (Auto) 0 % (0-3) Basophils (%) (Auto) 1 % (0-3) Neutrophils # (Auto) 3.7 x10^3/uL (1.8-7.7) Lymphocytes # (Auto) 0.4 x10^3/uL (1.0-4.8) L Monocytes # (Auto) 0.1 x10^3/uL (0.0-1.1) Eosinophils # (Auto) 0.0 x10^3/uL (0.0-0.7) Basophils # (Auto) 0.0 x10^3/uL (0.0-0.2) Platelet Estimate Pending Sodium Level 141 mmol/L (136-145) Potassium Level 3.7 mmol/L (3.5-5.1) Chloride Level 105 mmol/L (98-107) Carbon Dioxide Level 24 mmol/L (21-32) Anion Gap 12 (6-14) Blood Urea Nitrogen 9 mg/dL (8-26) Creatinine 1.2 mg/dL (0.7-1.3) Estimated GFR (Cockcroft-Gault) 73.8 BUN/Creatinine Ratio 8 (6-20) Glucose Level 102 mg/dL (70-99) H Calcium Level 8.8 mg/dL (8.5-10.1) Magnesium Level 2.1 mg/dL (1.8-2.4) Ferritin 209 ng/mL (26-388) Total Bilirubin 0.9 mg/dL (0.2-1.0) Aspartate Amino Transferase (AST) 21 U/L (15-37) Alanine Aminotransferase (ALT) 17 U/L (16-63) Alkaline Phosphatase 90 U/L (46-116) Creatine Kinase 122 U/L (39-308) Troponin I Quantitative 0.076 ng/mL (0.000-0.055) C-Reactive Protein, Quantitative 30.9 mg/L (0-3.3) H FY-Ifq-X-Type Natriuretic Peptide 4349 pg/mL (0-124) H Total Protein 7.4 g/dL (6.4-8.2) Albumin 3.6 g/dL (3.4-5.0) Albumin/Globulin Ratio 0.9 (1.0-1.7) L Lipase 54 U/L (73-393) L Laboratory Tests 10/06/19 11:55 Laboratory Tests 10/06/19 11:55 ECHOCARDIOGRAM ECHOCARDIOGRAM <Conclusion> The left ventricular systolic function is severely impaired. The Ejection Fraction is 25-30%. Mild mitral regurgitation. Trace tricuspid regurgitation. There is no evidence of significant pericardial effusion. DATE: 12/20/18 0840 HEART CATH HEART CATH Findings. Hemodynamics. LV pressure of 118/28, aortic root pressure of 114/70. Coronaries. Left main. The left main was a large size vessel with no lesions. Left anterior descending. The LAD was a large vessel with normal distribution. Had a tortuous mid vessel with a total occlusion. Left circumflex. The left circumflex is a moderate size vessel with normal distribution. It had a mid 25-30% lesion. Right coronary artery. The right coronary was also a moderate size vessel. It a proximal 40-50% lesion. <Conclusion> Single-vessel occlusion of the LAD resulting in an ST elevated myocardial infarction. Successful drug-eluting stent placement to the LAD with a 0% residual lesion. Mild to moderate disease in the left circumflex and right coronary arteries. DATE: 04/26/18 1658 ASSESSMENT/PLAN ASSESSMENT/PLAN 1. Acute on chronic systolic/diastolic CHF: likely from not having any home d iuretic therapy. 2. CAD; past AR with PCI/YULIANA 3. MEDICAID BILLING SPECIALIST-D in situ: Biotronik. BiV pacing, no acute changes. Remote interrogation revealed no arrhythmias, normal device. No thoracic impedance reading. 4. ICM: prior EF at 25-30% 5. HTN: controlled 6. HLP 7. Tobaccoism: stopped last weekend 8. PUI 9. Mildy elevated troponin: suspect demand mediated 10. Amiodarone therapy: no clear use per multiple chart review. still takes it at home. Recommendations 1. Lasix therapy. May resume home entresto 2. Restart ASA/plavix and secondary prevention measures. 3. Will obtain TTE once covid negative. 4. Smoking cessation. Reinforced FR and Na rstriction, daily wt and HBPM. 5. DC amiodarone. MAGED SERRATO MD 10/06/19 1626: CARDIAC CONSULT ASSESSMENT/PLAN ASSESSMENT/PLAN Patient seen and examined. Agree with PHARMACOGENETICIST's assessment and plan. Continue diuresis for acute on chronic systolic heart failure. Recent 2D echo showed LVEF 25 to 30%. Slightly elevated troponin level probably demand ischemia. CAD status clinically stable. Recent device check showed normal function. Agree with stopping amiodarone. Thank you for your consultation. MONA VALENCIA APRN Oct 06, 2019 13:27 MAGED SERRATO MD Oct 06, 2019 16:26
[2019-10-06 13:36] LABS: PROTHROMBIN TIME PATIENT 14.2 SEC (11.7-14.0)
[2019-10-06 13:53] LABS: % LYMPHS 11 % (24-48); % MONOS 1 % (0-10); % SEGS 88 % (35-66); PLT ESTIMATE ADEQUATE (ADEQUATE)
[2019-10-06] MEDS: CLOPIDOGREL BISULFATE 75 MG TABLET PO SCH (14:00)
[2019-10-06] MEDS ORDERED: CONTRAST GIVEN. MC PRN (14:30)
[2019-10-06] MEDS ORDERED: IOHEXOL 350 MG/ML 100 ML VIAL. IV ONE (14:30)
[2019-10-06 15:04] LABS: BILIRUBIN,URINE NEGATIVE (NEG); CLARITY,URINE CLEAR; COLOR,URINE YELLOW; NITRITE,URINE NEGATIVE (NEG); PH,URINE 5.5 (<5.0-8.0); PROTEIN,URINE NEGATIVE (NEG-TRACE)
[2019-10-06 15:15] VITALS: BP 125/81
[2019-10-06 15:16] LABS: BACTERIA,URINE FEW /HPF (0-FEW); SQUAMOUS EPITHELIAL CELL,UR FEW /LPF
--- NOTE | 2019-10-06 15:28 | RAD ---
CTA OF THE CHEST WITH AND WITHOUT CONTRAST Clinical indications: Elevated d-dimer. Shortness of air. Technique: Noncontrast axial localizer was performed. After IV infusion of 100 cc of Omnipaque 350, helical CT scanning of the chest was performed using the CT pulmonary embolism protocol. A coronal MIP reconstruction was generated. PQRS compliance Statement One or more of the following individualized dose reduction techniques were utilized for this study: 1. Automated exposure control 2. Adjustment of the mA and/or kV according to patient size 3. Use of iterative reconstruction technique Comparison: June 26, 2003. Findings: No pulmonary embolism is evident. No focal aneurysmal dilatation of the thoracic aorta is seen. Evaluation for dissection or intimal flap cannot be completed due to lack of contrast opacification of the thoracic aorta. Heart size is mildly enlarged. No pericardial effusion is seen. Calcified atheromatous disease of the coronary arteries is seen. Mediastinal lymph nodes are unchanged from the previous study. No enlarging thoracic lymphadenopathy is evident. Small bilateral pleural effusions are seen right greater than left. Bilateral groundglass lung infiltrates and interstitial thickening are seen consistent with pulmonary edema. Calcified granuloma of the anterior lateral aspect of the left lower lobe is seen. No pneumothorax is seen. Proximal bronchial tree is patent. No lytic process is seen. The adrenal glands are not completely seen in this study. IMPRESSION: No pulmonary embolism. Small bilateral pleural effusions right greater than left. Bilateral groundglass lung infiltrates and interstitial thickening consistent with pulmonary edema. Calcified atheromatous disease of the coronary arteries. Heart size is mildly enlarged. Electronically signed by: Lan Jaramillo MD (10/06/2019 3:25 PM) [id number]
--- NOTE | 2019-10-06 15:37 | EKG ---
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
--- NOTE | 2019-10-06 17:24 | NUR ---
Patient Chang Santana 64/M admitted due to CHF, elevated Troponin, PUI arrived on the unit at 1515 via gurney. He's alert, oriented x 4, denies pain, VSS, on room air. He was oriented to the unit, belongings checked, call light placed within reach.
--- NOTE | 2019-10-06 18:42 | HP ---
ADMIT DATE: 10/06/2019 CHIEF COMPLAINT: Shortness of breath. HISTORY OF PRESENT ILLNESS: The patient is a pleasant 64-year-old male with known heart failure and CAD, presented with shortness of breath that has been occurring for about a week and has been getting worse. He has associated orthopnea. He has a productive cough. Chest x-ray showing vascular congestion. I discussed the case with the ER physician. We are going to admit the patient and consult Cardiology. PAST MEDICAL HISTORY: CAD, CHF, hyperlipidemia, hypertension, osteoarthritis, hypothyroidism, pacemaker. FAMILY HISTORY: Diabetes. SOCIAL HISTORY: He does smoke less than a pack per day, but no drink or drugs. MEDICATIONS: Reviewed, please refer to the MRAD. REVIEW OF SYSTEMS: GENERAL: No history of weight change, weakness or fevers. SKIN: No bruising, hair changes or rashes. EYES: No blurred, double or loss of vision. NOSE AND THROAT: No history of nosebleeds, hoarseness or sore throat. HEART: He complains of palpitations. LUNGS: He complains of shortness of breath. GASTROINTESTINAL: Denies changes in appetite, nausea, vomiting, diarrhea or constipation. GENITOURINARY: No history of frequency, urgency, hesitancy or nocturia. NEUROLOGIC: Denies history of numbness, tingling, tremor or weakness. PSYCHIATRIC: No history of panic, anxiety or depression. ENDOCRINE: No history of heat or cold intolerance, polyuria or polydipsia. EXTREMITIES: Denies muscle weakness, joint pain, pain on walking or stiffness. PHYSICAL EXAMINATION: VITALS: Within normal limits and are stable. GENERAL: No apparent distress. Alert and oriented. HEENT: Normal cephalic atraumatic, external auditory canals are patent EYES: Extraocular muscles are intact, pupils are equally round and reactive to light and accommodation MUSCULOSKELETAL: Well developed, well nourished, good range of motion ENDOCRINE: No thyromegaly was palpated LYMPHATICS: No cervical chain or axillary nodes were noted HEMATOPOIETIC: No bruising NECK: Supple, no JVD, no thyromegaly was noted. LUNGS: Slight bibasilar crackles. HEART: He has distant S1, S2 with a soft S3. ABDOMEN: Soft, nontender. Positive bowel sounds no organomegaly, normal bowel sounds. EXTREMITIES: Without any cyanosis, clubbing, or edema. Pedal pulses intact, Homans sign is negative. NEUROLOGIC: Normal speech, normal tone. A & O x3, moves all extremities, no obvious focal deficits. PSYCHIATRIC: Normal affect, normal mood. Stable. SKIN: No ulcerations or rashes, good skin turgor, no jaundice. VASCULAR: Good capillary refill, neurovascular bundle appears to be intact. DIAGNOSTIC DATA: CT of the chest is negative for PE. Chest x-ray shows cardiomegaly and vascular congestion. ASSESSMENT AND PLAN: Acute on chronic systolic and diastolic heart failure. The patient will be admitted. We will give IV Lasix, serial enzymes, serial EKGs. Consult Cardiology. Consider echocardiogram, home meds, DVT prophylaxis. Full code. SHU NICHOLSON DO DR: JENSEN/abram JOB#: [id number] / [id number]
--- NOTE | 2019-10-06 18:50 | NUR ---
Patient claims his meds on the computer are still current, unable to tell this nurse each med.
[2019-10-06 19:49] VITALS: BP 101/66
[2019-10-06] MEDS: ATORVASTATIN CALCIUM 40 MG TABLET. PO SCH (20:56)
[2019-10-06 23:07] VITALS: BP 102/71
[2019-10-07 03:14] VITALS: BP 114/74
[2019-10-07 06:36] LABS: CHOLESTEROL/HDL RATIO 2.5
[2019-10-07 07:00] VITALS: BP 116/71
[2019-10-07] MEDS: CLOPIDOGREL BISULFATE 75 MG TABLET PO SCH (08:52)
[2019-10-07] MEDS: ASPIRIN ENTERIC COATED 81 MG TABLET.DR. PO SCH (08:52)
[2019-10-07] MEDS: SACUBITRIL/VALSARTAN 49/51MG TABLET. PO SCH (08:53)
[2019-10-07] MEDS: METOPROLOL SUCC 24HR ER 50 MG TAB.ER.24H. PO SCH (08:53)
[2019-10-07] MEDS ORDERED: FUROSEMIDE 40 MG/4 ML VIAL. IVP SCH (09:00)
--- NOTE | 2019-10-07 09:54 | CONS ---
DATE OF CONSULTATION: 10/07/2019 I was asked to see this 64-year-old gentleman for shortness of breath. HISTORY OF PRESENT ILLNESS: The patient has history of [id number]-year smoking, did smoke until about a week ago. He started to have increased shortness of breath for the past week. He denies fever or chills. He has had cough with clear sputum production. He denies exposure to COVID-19. He denies chest pain. He has occasional runny nose. PAST MEDICAL HISTORY: Coronary artery disease, status post stent and cardiomyopathy with ejection fraction of 25-30%. ALLERGIES: TICAGRELOR. MEDICATIONS: Currently, he is on Lasix, Toprol-XL, Entresto, aspirin, Lipitor, Plavix. SOCIAL HISTORY: History of [id number] smoking, did smoke until about a week ago. FAMILY HISTORY: Hypertension. REVIEW OF SYSTEMS: As mentioned as above, other systems otherwise negative. PHYSICAL EXAMINATION: GENERAL: A well-developed gentleman. VITAL SIGNS: His O2 saturation on room air is 95%, respiratory rate 18, heart rate 63, blood pressure 102/71, temperature 97.5. HEENT: Normocephalic, atraumatic. NECK: There is no JVD. CARDIOVASCULAR: Regular rate and rhythm. CHEST: Chest inspection is normal. There is no audible wheezing. There is no paradoxical abdominal motion. NEUROLOGIC: He is alert and oriented. EXTREMITIES; There is no edema. LABORATORY DATA: I reviewed the following lab data: CT angiogram did not show pulmonary embolism, showed small bilateral pleural effusion, right more than left bilateral ground-glass infiltrate and interstitial thickening consistent with pulmonary edema, calcified coronary arteries. Sodium 141, potassium 3.7, chloride 105, CO2 of 24, BUN 9, creatinine 1.2, BNP 4349, troponin 0.076. IMPRESSION: 1. Dyspnea secondary to acute systolic congestive heart failure. The patient might have chronic obstructive pulmonary disease, never had pulmonary function tests, doubt up COVID-19. 2[address] of the chest, suspect secondary to acute systolic congestive heart failure. 3. Acute systolic congestive heart failure. 4. Smoker, suspect he has chronic obstructive pulmonary disease. 5. Coronary artery disease. 6. Hypertension. 7. Hyperlipidemia. 8. Mildly elevated troponin, suspect demand ischemia. PLAN AND RECOMMENDATIONS: 1. Titrate FiO2 to keep O2 saturation 92%. 2. Cardiology is consulted. 3. Agree with Lasix. 4. Keep intake less than output. 5. Monitor potassium and creatinine. 6. Follow up COVID-19 test. I had a long discussion with him regarding smoking cessation. I have advised him to stop smoking forever. I do recommend pulmonary function test as an outpatient. The findings and recommendations were discussed with the patient who understood and agreed to proceed with the plan. I have answered all of his questions. Thank you very much for allowing me to participate in care of this very nice gentleman. KADE METZGER M.D. DR: AKHIL/abram JOB#: [id number] / [id number]
--- NOTE | 2019-10-07 10:14 | PDOC ---
PROGRESS NOTES Date of Service: DATE: 10/07/19 TIME: 10:11 Subjective Subjective Feeling much better today. Denied any dyspnea or chest pain. Objective Objective Vital Signs Date Time Temp Pulse Resp B/P (MAP) Pulse Ox O2 Delivery O2 Flow Rate FiO2 10/07/19 08:53 103 142/77 10/07/19 08:00 Room Air 10/07/19 07:00 96.9 16 91 96.9 Intake and Output 10/07/19 07:00 Intake Total 240 ml Output Total 1500 ml Balance -1260 ml Intake Oral 240 ml Output Urine Total 1500 ml Physical Exam Abdomen: Soft, No tenderness Heart: Regular rate (paced) Extremities: No cyanosis General: Alert, Oriented X3, Cooperative, No acute distress HEENT: Atraumatic, Mucous membr. moist/pink Lungs: Other (Decreased air entry bases) Neuro: Normal speech, Sensation intact Psych/Mental Status: Mental status NL, Mood NL Skin: No breakdown, No significant lesion Assessment Assessment 1. Acute on chronic systolic/diastolic CHF: likely from not having any home diuretic therapy. He is much better compensated today. COVID test negative. Change Lasix to p.o. Continue Entresto. 2. CAD; past VT with PCI/YULIANA, clinically stable. Slight troponin elevation probably demand ischemia. 3. [employer] in situ: Biotronik. BiV pacing, no acute changes. Remote interrogation revealed no arrhythmias, normal device. No thoracic impedance reading. 4. ICM: prior EF at 25-30% 5. HTN: controlled 6. HLP, on statin therapy 7. Tobaccoism: stopped last weekend Okay for DC from cardiac standpoint. We will follow-up in our office in 1 month. Plan Plan of Care Problems Medical Problems: (1) CHF (congestive heart failure) Status: Acute (2) Person under investigation for COVID-19 Status: Acute (3) Troponin level elevated Status: Acute Comment Review of Relevant I have reviewed the following items cj (where applicable) has been applied. Labs Laboratory Tests Test 10/06/19 11:55 10/06/19 13:13 10/06/19 14:56 10/06/19 19:00 White Blood Count 4.3 x10^3/uL (4.0-11.0) Red Blood Count 4.22 x10^6/uL (4.30-5.70) Hemoglobin 13.3 g/dL (13.0-17.5) Hematocrit 39.9 % (39.0-53.0) Mean Corpuscular Volume 95 fL (79-100) Mean Corpuscular Hemoglobin 32 pg (25-35) Mean Corpuscular Hemoglobin Concent 33 g/dL (31-37) Red Cell Distribution Width 15.4 % (11.5-14.5) Platelet Count 168 x10^3/uL (140-400) Neutrophils (%) (Auto) 87 % (31-73) Lymphocytes (%) (Auto) 10 % (24-48) Monocytes (%) (Auto) 2 % (0-9) Eosinophils (%) (Auto) 0 % (0-3) Basophils (%) (Auto) 1 % (0-3) Neutrophils # (Auto) 3.7 x10^3/uL (1.8-7.7) Lymphocytes # (Auto) 0.4 x10^3/uL (1.0-4.8) Monocytes # (Auto) 0.1 x10^3/uL (0.0-1.1) Eosinophils # (Auto) 0.0 x10^3/uL (0.0-0.7) Basophils # (Auto) 0.0 x10^3/uL (0.0-0.2) Segmented Neutrophils % 88 % (35-66) Lymphocytes % 11 % (24-48) Monocytes % 1 % (0-10) Platelet Estimate Adequate (ADEQUATE) Sodium Level 141 mmol/L (136-145) Potassium Level 3.7 mmol/L (3.5-5.1) Chloride Level 105 mmol/L (98-107) Carbon Dioxide Level 24 mmol/L (21-32) Anion Gap 12 (6-14) Blood Urea Nitrogen 9 mg/dL (8-26) Creatinine 1.2 mg/dL (0.7-1.3) Estimated GFR (Cockcroft-Gault) 73.8 BUN/Creatinine Ratio 8 (6-20) Glucose Level 102 mg/dL (70-99) Calcium Level 8.8 mg/dL (8.5-10.1) Magnesium Level 2.1 mg/dL (1.8-2.4) Ferritin 209 ng/mL (26-388) Total Bilirubin 0.9 mg/dL (0.2-1.0) Aspartate Amino Transf (AST/SGOT) 21 U/L (15-37) Alanine Aminotransferase (ALT/SGPT) 17 U/L (16-63) Alkaline Phosphatase 90 U/L (46-116) Creatine Kinase 137 U/L (39-308) Creatine Kinase MB (Mass) 0.6 ng/mL (0.0-3.6) Creatine Kinase MB Relative Index 0.4 % (0-4) Troponin I Quantitative 0.076 ng/mL (0.000-0.055) 0.079 ng/mL (0.000-0.055) C-Reactive Protein, Quantitative 30.9 mg/L (0-3.3) SA-Sex-Z-Type Natriuretic Peptide 4349 pg/mL (0-124) Total Protein 7.4 g/dL (6.4-8.2) Albumin 3.6 g/dL (3.4-5.0) Albumin/Globulin Ratio 0.9 (1.0-1.7) Lipase 54 U/L (73-393) Thyroid Stimulating Hormone (TSH) 2.460 uIU/mL (0.358-3.74) Prothrombin Time 14.2 SEC (11.7-14.0) Prothromb Time International Ratio 1.1 (0.8-1.1) Activated Partial Thromboplast Time 45 SEC (24-38) D-Dimer (Melisa) 0.75 ug/mlFEU (0.00-0.50) Urine Collection Type Unknown Urine Color Yellow Urine Clarity Clear Urine pH 5.5 (<5.0-8.0) Urine Specific [place] 1.015 (1.000-1.030) Urine Protein Negative mg/dL (NEG-TRACE) Urine Glucose (UA) Negative mg/dL (NEG) Urine Ketones (Stick) 15 mg/dL (NEG) Urine Blood Large (NEG) Urine Nitrite Negative (NEG) Urine Bilirubin Negative (NEG) Urine Urobilinogen Dipstick 1.0 mg/dL (0.2 mg/dL) Urine Leukocyte Esterase Negative (NEG) Urine RBC 6-10 /HPF (0-2) Urine WBC 1-4 /HPF (0-4) Urine Squamous Epithelial Cells Few /LPF Urine Bacteria Few /HPF (0-FEW) Urine Mucus Slight /LPF Test 10/07/19 00:30 10/07/19 06:05 Troponin I Quantitative 0.080 ng/mL (0.000-0.055) 0.090 ng/mL (0.000-0.055) Triglycerides Level 55 mg/dL (0-150) Cholesterol Level 127 mg/dL (0-200) LDL Cholesterol, Calculated 65 mg/dL (0-100) VLDL Cholesterol, Calculated 11 mg/dL (0-40) Non-HDL Cholesterol Calculated 76 mg/dL (0-129) HDL Cholesterol 51 mg/dL (40-60) Cholesterol/HDL Ratio 2.5 Medications Current Medications Aspirin (Joseline Aspirin) 325 mg 1X ONCE PO Last administered on 10/06/19 12:55; Start 10/06/19 at 13:00; Stop 10/06/19 at 13:01; Status DC Aspirin (Ecotrin) 81 mg DAILYWBKFT PO Last administered on 10/07/19at 08:52; Start 10/07/19 at 08:00 Atorvastatin Calcium (Lipitor) 40 mg QHS PO Last administered on 10/06/19at 20:56; Start 10/06/19 at 21:00 Clopidogrel Bisulfate (Plavix) 75 mg DAILY PO Last administered on 10/07/19at 08:52; Start 10/06/19 at 14:00 Furosemide (Lasix) 40 mg 1X ONCE PO Last administered on 10/06/19at 13:34; Start 10/06/19 at 13:15; Stop 10/06/19 at 13:16; Status DC Furosemide (Lasix) 40 mg DAILY IVP Last administered on 10/07/19at 08:52; Start 10/07/19 at 09:00 Info (CONTRAST GIVEN -- Rx MONITORING) 1 each PRN DAILY PRN MC SEE COMMENTS; Start 10/06/19 at 14:30; Stop 10/08/19 at 14:29 Iohexol (Omnipaque 350 Mg/ml) 100 ml 1X ONCE IV Last administered on 10/06/19at 15:08; Start 10/06/19 at 14:30; Stop 10/06/19 at 14:31; Status DC Metoprolol Succinate (Toprol Xl) 25 mg DAILY PO Last administered on 10/07/19at 08:53; Start 10/07/19 at 09:00 Sacubitril/ Valsartan (Entresto 49 Mg-51 Mg) 1 tab DAILY PO Last administered on 10/07/19at 08:53; Start 10/07/19 at 09:00 Vitals/I & O Vital Sign - Last 24 Hours 10/06/19 10/06/19 10/06/19 10/06/19 11:27 11:36 12:06 12:36 Temp 96.8 96.8 Pulse 65 64 64 66 Resp 22 20 20 B/P (MAP) 112/74 (87) 119/73 (88) 118/80 (93) 121/75 (90) Pulse Ox 98 98 98 98 O2 Delivery Room Air Room Air Room Air Room Air 10/06/19 10/06/19 10/06/19 10/06/19 13:00 13:30 14:00 14:30 Pulse 66 68 66 66 Resp 20 20 20 B/P (MAP) 115/73 (87) 109/75 (86) 112/66 (81) 116/71 (86) Pulse Ox 99 99 100 100 O2 Delivery Room Air Room Air Room Air Room Air 10/06/19 10/06/19 10/06/19 10/06/19 15:00 15:15 15:30 19:49 Temp 98.6 97.5 98.6 97.5 Pulse 68 75 69 Resp 19 18 B/P (MAP) 114/70 (85) 125/81 (96) 101/66 (78) Pulse Ox 99 95 94 O2 Delivery Room Air Room Air Room Air Room Air 10/06/19 10/06/19 10/07/19 10/07/19 20:00 23:07 03:14 07:00 Temp 97.5 97.5 96.9 97.5 97.5 96.9 Pulse 63 68 71 Resp 18 16 16 B/P (MAP) 102/71 (81) 114/74 (87) 116/71 (86) Pulse Ox 95 92 91 O2 Delivery Room Air Room Air Room Air Room Air 10/07/19 10/07/19 10/07/19 08:00 08:53 08:53 Pulse 103 103 B/P (MAP) 142/77 142/77 O2 Delivery Room Air Intake and Output 10/06/19 10/06/19 10/07/19 15:00 23:00 07:00 Intake Total 240 ml Output Total 1000 ml 500 ml Balance -1000 ml -260 ml MAGED SERRATO MD Oct 07, 2019 10:14
[2019-10-07 11:00] VITALS: BP 109/65
[2019-10-07 15:00] VITALS: BP 97/63
[2019-10-07] MEDS ORDERED: NITROGLYCERIN SUBLINGUAL 0.4 MG BOTTLE OF 25. SL PRN (15:30)
--- NOTE | 2019-10-07 15:30 | PDOC ---
[facility] PROGRESS NOTE Date of Service DOS: DATE: 10/07/19 TIME: 15:21 Chief Complaint Chief Complaint A/P: Shortness of breath - with CXR more consistent with CHF exacerbation, no other COVID sx or contacts and recent negative testing, this will be treated as CHF exacerbation. Follow K and mag Ischemic cardiomyopathy - with biventricular block, wide QRS, reduced EF 25%, now s/p AICD placement on 02/03. Cardiology to see. Systolic CHF - EF 25-30% seems decompensated. Advised ETOH reduction and fluid restriction, daily weights. Cardiology consulted. IV lasix ordered. Entresto, Metoprolol. Statin, asa ordered. RBBB - stable HLD - on statin HTN - well managed Tobacco abuse - counseled on cessation and high risk recurrent CAD CAD s/p YULIANA - stable, will have cardiology to see. On BB, statin, ASA, and plavix therapy Elevated CRP - will monitor FEN - Cardiac diet, 1L fluid restriction PPX - lovenox FULL CODE Dispo -inpatient for acute CHF exacerbation likely 2 midnights History of Present Illness History of Present Illness Mr Santana is a 63yo M w/ PMHx ischemic cardiomyopathy s/p BiV AICD 02/04/2020, reduced EF CHF 25-30%, HLD, HTN, tobacco abuse, CAD s/p YULIANA, and [facility] in April 2018 p/w trouble breathing with exertion not able to sleep flat on his back. Patient also had nonproductive cough for couple day, denies any fever. Patient said he was tested for COVID-19 and it came back negative on 07/09. Patient denies any chest pain. Patient has history of CHF, not on diuretics regularly. He does note he didn't recall being on a fluid restriction and has been having 1-2 beers intermittently, still a regular smoker as well, though notes he recently stopped. CXR with bilateral interstitial opacities consistent with edema. CTPA negative for PE, shows small bilateral pleural effusions right greater than left. Bilateral groundglass lung infiltrates and interstitial thickening consistent with pulmonary edema. Calcified atheromatous disease of the coronary arteries. Heart size is mildly enlarged. EKG HR 68 bpm, no ST segment elevation. Sinus rhythm, right bundle branch block. Prolonged QT interval. After 1 dose of lasix IV and large UOP he started feeling a bit improved. Admitted for further care. Consults: Cardiology and pulmonology CRP 30.9, BNP 4349. COVID-19 test pending. He feels significantly better and would like to go home as soon as he can. Vitals/I&O Vitals/I&O: Vital Signs Date Time Temp Pulse Resp B/P (MAP) Pulse Ox O2 Delivery O2 Flow Rate FiO2 10/07/19 11:00 97.9 66 18 109/65 (80) 95 Room Air 97.9 I & O 10/06/19 10/06/19 10/07/19 15:00 23:00 07:00 Intake Total 240 ml Output Total 1000 ml 500 ml Balance -1000 ml -260 ml Physical Exam General: Alert, Oriented X3, Cooperative, No acute distress Heart: Regular rate (paced) Abdomen: Soft, No tenderness Extremities: No cyanosis Skin: No breakdown, No significant lesion Labs Labs: Laboratory Tests Test 10/06/19 19:00 10/07/19 00:30 10/07/19 06:05 Troponin I Quantitative 0.079 ng/mL (0.000-0.055) 0.080 ng/mL (0.000-0.055) 0.090 ng/mL (0.000-0.055) Triglycerides Level 55 mg/dL (0-150) Cholesterol Level 127 mg/dL (0-200) LDL Cholesterol, Calculated 65 mg/dL (0-100) VLDL Cholesterol, Calculated 11 mg/dL (0-40) Non-HDL Cholesterol Calculated 76 mg/dL (0-129) HDL Cholesterol 51 mg/dL (40-60) Cholesterol/HDL Ratio 2.5 Assessment and Plan Assessmemt and Plan Problems Medical Problems: (1) CHF (congestive heart failure) Status: Acute (2) Person under investigation for COVID-19 Status: Acute (3) Troponin level elevated Status: Acute Comment Review of Relevant I have reviewed the following items cj (where applicable) has been applied. Medications: Current Medications Medications (Trade) Dose Ordered Sig/Promise Route PRN Reason Start Time Stop Time Status Last Admin Dose Admin Aspirin (Ecotrin) 81 mg DAILYWBKFT PO 10/07/19 08:00 10/07/19 08:52 Atorvastatin Calcium (Lipitor) 40 mg QHS PO 10/06/19 21:00 10/06/19 20:56 Sacubitril/ Valsartan (Entresto 49 Mg-51 Mg) 1 tab DAILY PO 10/07/19 09:00 10/07/19 08:53 Metoprolol Succinate (Toprol Xl) 25 mg DAILY PO 10/07/19 09:00 10/07/19 08:53 Furosemide (Lasix) 40 mg DAILY IVP 10/07/19 09:00 10/07/19 10:16 DC 10/07/19 08:52 Justicifation of Admission Dx: Justifications for Admission: Justification of Admission Dx: Yes VA: Acute NSTEMI (ELEVATED TROPONIN) LEXY LIGHT MD Oct 07, 2019 15:29
[2019-10-07] MEDS ORDERED: ENOXAPARIN 40 MG/0.4 ML SYRINGE. SQ SCH (16:00)
[2019-10-07] MEDS ORDERED: FURO-68 PO (17:12)
[2019-10-07] MEDS ORDERED: METO50TA4 PO (17:12)
[2019-10-07] MEDS ORDERED: POTA10TA12 PO (17:12)
[2019-10-07 19:00] VITALS: BP 105/73
[2019-10-07] MEDS: ATORVASTATIN CALCIUM 40 MG TABLET. PO SCH (20:23)
[2019-10-07 23:00] VITALS: BP 102/69
[2019-10-08 04:00] VITALS: BP 106/63
[2019-10-08 04:04] LABS: BASO % 1 % (0-3); EOS # 0.1 x10^3/uL (0.0-0.7); EOS % 2 % (0-3); HEMATOCRIT 38.4 % (39.0-53.0); HEMOGLOBIN 12.8 g/dL (13.0-17.5); LYMPH # 1.4 x10^3/uL (1.0-4.8); LYMPH % 28 % (24-48); MEAN CORPUSCULAR HEMOGLOBIN 32 pg (25-35); MEAN CORPUSCULAR HGB CONC 33 g/dL (31-37); MEAN CORPUSCULAR VOLUME 95 fL (79-100); MONO # 0.2 x10^3/uL (0.0-1.1); MONO % 4 % (0-9); NEUT # 3.2 x10^3/uL (1.8-7.7); NEUT % 65 % (31-73); PLATELET COUNT 162 x10^3/uL (140-400); RED BLOOD COUNT 4.04 x10^6/uL (4.30-5.70); RED CELL DISTRIBUTION WIDTH 15.3 % (11.5-14.5); WHITE BLOOD COUNT 4.9 x10^3/uL (4.0-11.0)
[2019-10-08 04:18] LABS: CALCIUM 8.1 mg/dL (8.5-10.1); CREATININE 1.2 mg/dL (0.7-1.3); GFR 73.8; MAGNESIUM 1.8 mg/dL (1.8-2.4); POTASSIUM 3.1 mmol/L (3.5-5.1)
[2019-10-08] MEDS ORDERED: LEVOTHYROXINE 100 MCG TABLET PO SCH (06:00)
[2019-10-08 07:00] VITALS: BP 117/78
[2019-10-08] MEDS: CLOPIDOGREL BISULFATE 75 MG TABLET PO SCH (07:53)
[2019-10-08] MEDS: SACUBITRIL/VALSARTAN 49/51MG TABLET. PO SCH (07:55)
[2019-10-08] MEDS: METOPROLOL SUCC 24HR ER 50 MG TAB.ER.24H. PO SCH (07:56)
[2019-10-08] MEDS: ASPIRIN ENTERIC COATED 81 MG TABLET.DR. PO SCH (07:56)
--- NOTE | 2019-10-08 08:43 | PDOC ---
PULMONARY PROGRESS NOTES DATE: 10/08/19 TIME: 08:42 Subjective sob better, has occ cough, no cp Vitals Vital Signs Date Time Temp Pulse Resp B/P (MAP) Pulse Ox O2 Delivery O2 Flow Rate FiO2 10/08/19 07:56 65 10/08/19 07:55 106/63 10/08/19 04:00 98.0 18 96 Room Air 98.0 ROS: No Nausea, No Chest Pain General: Alert, Oriented X4 HEENT: Other (nc at perrl ) Lungs: Clear Cardiovascular: S1, S2 Abdomen: Soft, Non-tender Neuro Exam: Alert, Oriented Extremities: No Edema Skin: Warm Labs Laboratory Tests Test 10/06/19 11:55 10/06/19 13:13 10/06/19 13:40 10/06/19 14:56 White Blood Count 4.3 x10^3/uL (4.0-11.0) Red Blood Count 4.22 x10^6/uL (4.30-5.70) Hemoglobin 13.3 g/dL (13.0-17.5) Hematocrit 39.9 % (39.0-53.0) Mean Corpuscular Volume 95 fL (79-100) Mean Corpuscular Hemoglobin 32 pg (25-35) Mean Corpuscular Hemoglobin Concent 33 g/dL (31-37) Red Cell Distribution Width 15.4 % (11.5-14.5) Platelet Count 168 x10^3/uL (140-400) Neutrophils (%) (Auto) 87 % (31-73) Lymphocytes (%) (Auto) 10 % (24-48) Monocytes (%) (Auto) 2 % (0-9) Eosinophils (%) (Auto) 0 % (0-3) Basophils (%) (Auto) 1 % (0-3) Neutrophils # (Auto) 3.7 x10^3/uL (1.8-7.7) Lymphocytes # (Auto) 0.4 x10^3/uL (1.0-4.8) Monocytes # (Auto) 0.1 x10^3/uL (0.0-1.1) Eosinophils # (Auto) 0.0 x10^3/uL (0.0-0.7) Basophils # (Auto) 0.0 x10^3/uL (0.0-0.2) Segmented Neutrophils % 88 % (35-66) Lymphocytes % 11 % (24-48) Monocytes % 1 % (0-10) Platelet Estimate Adequate (ADEQUATE) Sodium Level 141 mmol/L (136-145) Potassium Level 3.7 mmol/L (3.5-5.1) Chloride Level 105 mmol/L (98-107) Carbon Dioxide Level 24 mmol/L (21-32) Anion Gap 12 (6-14) Blood Urea Nitrogen 9 mg/dL (8-26) Creatinine 1.2 mg/dL (0.7-1.3) Estimated GFR (Cockcroft-Gault) 73.8 BUN/Creatinine Ratio 8 (6-20) Glucose Level 102 mg/dL (70-99) Calcium Level 8.8 mg/dL (8.5-10.1) Magnesium Level 2.1 mg/dL (1.8-2.4) Ferritin 209 ng/mL (26-388) Total Bilirubin 0.9 mg/dL (0.2-1.0) Aspartate Amino Transf (AST/SGOT) 21 U/L (15-37) Alanine Aminotransferase (ALT/SGPT) 17 U/L (16-63) Alkaline Phosphatase 90 U/L (46-116) Creatine Kinase 137 U/L (39-308) Creatine Kinase MB (Mass) 0.6 ng/mL (0.0-3.6) Creatine Kinase MB Relative Index 0.4 % (0-4) Troponin I Quantitative 0.076 ng/mL (0.000-0.055) C-Reactive Protein, Quantitative 30.9 mg/L (0-3.3) KQ-[id number]-F-Type Natriuretic Peptide 4349 pg/mL (0-124) Total Protein 7.4 g/dL (6.4-8.2) Albumin 3.6 g/dL (3.4-5.0) Albumin/Globulin Ratio 0.9 (1.0-1.7) Lipase 54 U/L (73-393) Thyroid Stimulating Hormone (TSH) 2.460 uIU/mL (0.358-3.74) Prothrombin Time 14.2 SEC (11.7-14.0) Prothromb Time International Ratio 1.1 (0.8-1.1) Activated Partial Thromboplast Time 45 SEC (24-38) D-Dimer (Melisa) 0.75 ug/mlFEU (0.00-0.50) Coronavirus (PCR) Not detected (Not Detected) Urine Collection Type Unknown Urine Color Yellow Urine Clarity Clear Urine pH 5.5 (<5.0-8.0) Urine Specific [place] 1.015 (1.000-1.030) Urine Protein Negative mg/dL (NEG-TRACE) Urine Glucose (UA) Negative mg/dL (NEG) Urine Ketones (Stick) 15 mg/dL (NEG) Urine Blood Large (NEG) Urine Nitrite Negative (NEG) Urine Bilirubin Negative (NEG) Urine Urobilinogen Dipstick 1.0 mg/dL (0.2 mg/dL) Urine Leukocyte Esterase Negative (NEG) Urine RBC 6-10 /HPF (0-2) Urine WBC 1-4 /HPF (0-4) Urine Squamous Epithelial Cells Few /LPF Urine Bacteria Few /HPF (0-FEW) Urine Mucus Slight /LPF Test 10/06/19 19:00 10/07/19 00:30 10/07/19 06:05 10/08/19 03:30 Troponin I Quantitative 0.079 ng/mL (0.000-0.055) 0.080 ng/mL (0.000-0.055) 0.090 ng/mL (0.000-0.055) 0.088 ng/mL (0.000-0.055) Triglycerides Level 55 mg/dL (0-150) Cholesterol Level 127 mg/dL (0-200) LDL Cholesterol, Calculated 65 mg/dL (0-100) VLDL Cholesterol, Calculated 11 mg/dL (0-40) Non-HDL Cholesterol Calculated 76 mg/dL (0-129) HDL Cholesterol 51 mg/dL (40-60) Cholesterol/HDL Ratio 2.5 White Blood Count 4.9 x10^3/uL (4.0-11.0) Red Blood Count 4.04 x10^6/uL (4.30-5.70) Hemoglobin 12.8 g/dL (13.0-17.5) Hematocrit 38.4 % (39.0-53.0) Mean Corpuscular Volume 95 fL (79-100) Mean Corpuscular Hemoglobin 32 pg (25-35) Mean Corpuscular Hemoglobin Concent 33 g/dL (31-37) Red Cell Distribution Width 15.3 % (11.5-14.5) Platelet Count 162 x10^3/uL (140-400) Neutrophils (%) (Auto) 65 % (31-73) Lymphocytes (%) (Auto) 28 % (24-48) Monocytes (%) (Auto) 4 % (0-9) Eosinophils (%) (Auto) 2 % (0-3) Basophils (%) (Auto) 1 % (0-3) Neutrophils # (Auto) 3.2 x10^3/uL (1.8-7.7) Lymphocytes # (Auto) 1.4 x10^3/uL (1.0-4.8) Monocytes # (Auto) 0.2 x10^3/uL (0.0-1.1) Eosinophils # (Auto) 0.1 x10^3/uL (0.0-0.7) Basophils # (Auto) 0.0 x10^3/uL (0.0-0.2) Sodium Level 142 mmol/L (136-145) Potassium Level 3.1 mmol/L (3.5-5.1) Chloride Level 105 mmol/L (98-107) Carbon Dioxide Level 27 mmol/L (21-32) Anion Gap 10 (6-14) Blood Urea Nitrogen 13 mg/dL (8-26) Creatinine 1.2 mg/dL (0.7-1.3) Estimated GFR (Cockcroft-Gault) 73.8 Glucose Level 89 mg/dL (70-99) Calcium Level 8.1 mg/dL (8.5-10.1) Magnesium Level 1.8 mg/dL (1.8-2.4) Laboratory Tests Test 10/08/19 03:30 White Blood Count 4.9 x10^3/uL (4.0-11.0) Red Blood Count 4.04 x10^6/uL (4.30-5.70) Hemoglobin 12.8 g/dL (13.0-17.5) Hematocrit 38.4 % (39.0-53.0) Mean Corpuscular Volume 95 fL (79-100) Mean Corpuscular Hemoglobin 32 pg (25-35) Mean Corpuscular Hemoglobin Concent 33 g/dL (31-37) Red Cell Distribution Width 15.3 % (11.5-14.5) Platelet Count 162 x10^3/uL (140-400) Neutrophils (%) (Auto) 65 % (31-73) Lymphocytes (%) (Auto) 28 % (24-48) Monocytes (%) (Auto) 4 % (0-9) Eosinophils (%) (Auto) 2 % (0-3) Basophils (%) (Auto) 1 % (0-3) Neutrophils # (Auto) 3.2 x10^3/uL (1.8-7.7) Lymphocytes # (Auto) 1.4 x10^3/uL (1.0-4.8) Monocytes # (Auto) 0.2 x10^3/uL (0.0-1.1) Eosinophils # (Auto) 0.1 x10^3/uL (0.0-0.7) Basophils # (Auto) 0.0 x10^3/uL (0.0-0.2) Sodium Level 142 mmol/L (136-145) Potassium Level 3.1 mmol/L (3.5-5.1) Chloride Level 105 mmol/L (98-107) Carbon Dioxide Level 27 mmol/L (21-32) Anion Gap 10 (6-14) Blood Urea Nitrogen 13 mg/dL (8-26) Creatinine 1.2 mg/dL (0.7-1.3) Estimated GFR (Cockcroft-Gault) 73.8 Glucose Level 89 mg/dL (70-99) Calcium Level 8.1 mg/dL (8.5-10.1) Magnesium Level 1.8 mg/dL (1.8-2.4) Troponin I Quantitative 0.088 ng/mL (0.000-0.055) Medications Active Scripts Medications Dose Route/Sig Max Daily Dose Days Date Category Dose Instructions Toprol XL (Metoprolol Succinate) 50 Mg Tab.er.24h 25 Mg PO DAILY 30 10/07/19 Rx Klor-Con 10 (Potassium Chloride) 10 Meq Tablet.er 1 Tab PO DAILY 30 10/07/19 Rx Lasix (Furosemide) 40 Mg Tablet 1 Tab PO DAILY 30 10/07/19 Rx Entresto 49 mg-51 mg Tablet (Sacubitril/Valsartan) 1 Each Tablet 1 Each PO DAILY 01/27/19 Reported Clopidogrel (Clopidogrel Bisulfate) 75 Mg Tablet 75 Mg PO DAILY 01/27/19 Reported Amiodarone Hcl 200 Mg Tablet 200 Mg PO BID 01/27/19 Reported Nitrostat (Nitroglycerin) 0.4 Mg Tab.subl 0.4 Mg SL PRN Q5MIN PRN 30 04/28/18 Rx PLEASE TAKE NEEDED FOR CHEST PAIN, REPEAT EVERY 5 MIN X 3 PLEASE CALL MD IF PAIN NOT RESOLVED AFTER THIRD DOSE. Aspirin Ec (Aspirin) 81 Mg Tablet.dr 81 Mg PO DAILYWBKFT 04/28/18 Rx Atorvastatin Calcium 20 Mg Tablet 40 Mg PO QHS 04/28/18 Rx Levothyroxine Sodium 100 Mcg Tablet 100 Mcg PO DAILYAC 04/28/18 Reported Impression . IMPRESSION: 1. Dyspnea secondary to acute systolic/diastolic congestive heart failure. ? chronic obstructive pulmonary disease, never had pulmonary function tests, COVID-[address] of the chest, suspect secondary to acute systolic congestive heart failure. 3. Acute systolic congestive heart failure. 4. Smoker, suspect he has chronic obstructive pulmonary disease. 5. Coronary artery disease. 6. Hypertension. 7. Hyperlipidemia. 8. Mildly elevated troponin, suspect demand ischemia. Plan . PLAN AND RECOMMENDATIONS: 1. Titrate FiO2 to keep O2 saturation 92%. 2. Cardiology is consulted. 3. Agree with Lasix. 4. Keep intake less than output. 5. Monitor potassium and creatinine. 6. COVID-19 test, neg. 7. I had a long discussion with him regarding smoking cessation. I have advised him to stop smoking forever. 8. I do recommend pulmonary function test as an outpatient. discussed w pt KADE METZGER MD Oct 08, 2019 08:43
[2019-10-08] MEDS ORDERED: POTASSIUM CHLORIDE 10 MEQ TABLET.ER. PO SCH (09:00)
[2019-10-08] MEDS ORDERED: FUROSEMIDE 40 MG TABLET. PO SCH (09:00)
[2019-10-08 11:00] VITALS: BP 100/67
[2019-10-08] MEDS ORDERED: POTASSIUM CHLORIDE 20 MEQ TABLET.ER. PO ONE (12:45)
[2019-10-08] MEDS: POTASSIUM CHLORIDE 10MEQ 100 ML IV SCH ×2 (13:00→14:00)
[2019-10-08] MEDS ORDERED: MAGNESIUM SULFATE 2GM 50 ML IV ONE (13:00)
--- NOTE | 2019-10-08 13:40 | PDOC ---
PROGRESS NOTES Date of Service: DATE: 10/08/19 TIME: 13:40 Subjective Subjective Dyspnea improved. Denied any chest pain. Objective Objective Vital Signs Date Time Temp Pulse Resp B/P (MAP) Pulse Ox O2 Delivery O2 Flow Rate FiO2 10/08/19 11:00 97.1 67 18 100/67 (78) 91 Room Air 97.1 Intake and Output 10/08/19 07:00 Intake Total 520 ml Output Total 1500 ml Balance -980 ml Intake Oral 520 ml Output Urine Total 1500 ml # Voids 3 Physical Exam Abdomen: Soft, No tenderness Heart: Regular rate (paced) Extremities: No cyanosis General: Alert, Oriented X3, Cooperative, No acute distress HEENT: Atraumatic, Mucous membr. moist/pink Lungs: Other (Decreased air entry bases) Neuro: Normal speech, Sensation intact Psych/Mental Status: Mental status NL, Mood NL Skin: No breakdown, No significant lesion Assessment Assessment 1. Acute on chronic systolic/diastolic CHF: likely from not having any home diuretic therapy. He is much better compensated today. COVID test negative. Continue current medications including Lasix and Entresto. 2. CAD; past [place] with PCI/YULIANA, clinically stable. Slight troponin elevation probably demand ischemia. We will consider ischemic evaluation as an outpatient. 3. [employer]-D in situ: Biotronik. BiV pacing, no acute changes. Remote interrogation revealed no arrhythmias, normal device. No thoracic impedance reading. 4. ICM: prior EF at 25-30%. Repeat 2D echo as an outpatient. 5. HTN: controlled 6. HLP, on statin therapy 7. Tobaccoism: stopped last weekend Okay for DC from cardiac standpoint. We will follow-up in our office in 1 month. Plan Plan of Care Problems Medical Problems: (1) CHF (congestive heart failure) Status: Acute (2) Person under investigation for COVID-19 Status: Acute (3) Troponin level elevated Status: Acute Comment Review of Relevant I have reviewed the following items cj (where applicable) has been applied. Labs Laboratory Tests Test 10/08/19 03:30 White Blood Count 4.9 x10^3/uL (4.0-11.0) Red Blood Count 4.04 x10^6/uL (4.30-5.70) Hemoglobin 12.8 g/dL (13.0-17.5) Hematocrit 38.4 % (39.0-53.0) Mean Corpuscular Volume 95 fL (79-100) Mean Corpuscular Hemoglobin 32 pg (25-35) Mean Corpuscular Hemoglobin Concent 33 g/dL (31-37) Red Cell Distribution Width 15.3 % (11.5-14.5) Platelet Count 162 x10^3/uL (140-400) Neutrophils (%) (Auto) 65 % (31-73) Lymphocytes (%) (Auto) 28 % (24-48) Monocytes (%) (Auto) 4 % (0-9) Eosinophils (%) (Auto) 2 % (0-3) Basophils (%) (Auto) 1 % (0-3) Neutrophils # (Auto) 3.2 x10^3/uL (1.8-7.7) Lymphocytes # (Auto) 1.4 x10^3/uL (1.0-4.8) Monocytes # (Auto) 0.2 x10^3/uL (0.0-1.1) Eosinophils # (Auto) 0.1 x10^3/uL (0.0-0.7) Basophils # (Auto) 0.0 x10^3/uL (0.0-0.2) Sodium Level 142 mmol/L (136-145) Potassium Level 3.1 mmol/L (3.5-5.1) Chloride Level 105 mmol/L (98-107) Carbon Dioxide Level 27 mmol/L (21-32) Anion Gap 10 (6-14) Blood Urea Nitrogen 13 mg/dL (8-26) Creatinine 1.2 mg/dL (0.7-1.3) Estimated GFR (Cockcroft-Gault) 73.8 Glucose Level 89 mg/dL (70-99) Calcium Level 8.1 mg/dL (8.5-10.1) Magnesium Level 1.8 mg/dL (1.8-2.4) Troponin I Quantitative 0.088 ng/mL (0.000-0.055) Medications Current Medications Enoxaparin Sodium (Lovenox 40mg Syringe) 40 mg Q24H SQ Last administered on 10/07/19at 15:48; Start 10/07/19 at 16:00 Furosemide (Lasix) 40 mg DAILY PO Last administered on 10/08/19at 07:56; Start 10/08/19 at 09:00 Levothyroxine Sodium (Synthroid) 100 mcg DAILY06 PO Last administered on 10/08/19at 06:05; Start 10/08/19 at 06:00 Magnesium Sulfate 50 ml @ 25 mls/hr 1X ONCE IV Last administered on 10/08/19at 13:11; Start 10/08/19 at 13:00; Stop 10/08/19 at 14:59 Nitroglycerin (Nitrostat) 0.4 mg PRN Q5MIN PRN SL CHEST PAIN; Start 10/07/19 at 15:30 Potassium Chloride/Water 100 ml @ 100 mls/hr Q1H IV ; Start 10/08/19 at 13:00; Stop 10/08/19 at 14:59 Potassium Chloride (Klor-Con) 10 meq DAILY PO Last administered on 10/08/19at 07:56; Start 10/08/19 at 09:00 Potassium Chloride (Klor-Con) 40 meq 1X ONCE PO Last administered on 10/08/19at 13:10; Start 10/08/19 at 12:45; Stop 10/08/19 at 12:51; Status DC Vitals/I & O Vital Sign - Last 24 Hours 10/07/19 10/07/19 10/07/19 10/07/19 15:00 19:00 20:00 23:00 Temp 96.5 96.5 97.1 96.5 96.5 97.1 Pulse 65 71 75 Resp 18 18 18 B/P (MAP) 97/63 (74) 105/73 (84) 102/69 (80) Pulse Ox 96 96 97 O2 Delivery Room Air Room Air Room Air Room Air 10/08/19 10/08/19 10/08/19 10/08/19 03:00 04:00 07:00 07:55 Temp 98.0 96.4 98.0 96.4 Pulse 66 66 67 65 Resp 18 18 B/P (MAP) 106/63 (77) 117/78 (91) 106/63 Pulse Ox 96 94 O2 Delivery Room Air Room Air 10/08/19 10/08/19 10/08/19 07:56 08:00 11:00 Temp 97.1 97.1 Pulse 65 67 Resp 18 B/P (MAP) 100/67 (78) Pulse Ox 91 O2 Delivery Room Air Room Air Intake and Output 10/07/19 10/07/19 10/08/19 15:00 23:00 07:00 Intake Total 520 ml Output Total 1500 ml Balance -1500 ml 520 ml MAGED SERRATO MD Oct 08, 2019 13:40
--- NOTE | 2019-10-08 13:50 | PDOC ---
[facility] PROGRESS NOTE Date of Service DOS: DATE: 10/08/19 TIME: 13:47 Chief Complaint Chief Complaint A/P: Shortness of breath - with CXR more consistent with CHF exacerbation, no other COVID sx or contacts and recent negative testing, this will be treated as CHF exacerbation. Follow K and mag Ischemic cardiomyopathy - with biventricular block, wide QRS, reduced EF 25%, now s/p AICD placement on 02/03. Cardiology to see. Systolic CHF - EF 25-30% seems decompensated. Advised ETOH reduction and fluid restriction, daily weights. Cardiology consulted. IV lasix ordered. Entresto, Metoprolol. Statin, asa ordered. RBBB - stable HLD - on statin HTN - well managed Tobacco abuse - counseled on cessation and high risk recurrent CAD CAD s/p YULIANA - stable, will have cardiology to see. On BB, statin, ASA, and plavix therapy Elevated CRP - will monitor FEN - Cardiac diet, 1L fluid restriction PPX - lovenox FULL CODE Dispo -inpatient for acute CHF exacerbation likely 2 midnights History of Present Illness History of Present Illness Mr Santana is a 63yo M w/ PMHx ischemic cardiomyopathy s/p BiV AICD 02/04/2020, reduced EF CHF 25-30%, HLD, HTN, tobacco abuse, CAD s/p YULIANA, and [place] in April 2018 p/w trouble breathing with exertion not able to sleep flat on his back. Patient also had nonproductive cough for couple day, denies any fever. Patient said he was tested for COVID-19 and it came back negative on 07/09. Patient denies any chest pain. Patient has history of CHF, not on diuretics regularly. He does note he didn't recall being on a fluid restriction and has been having 1-2 beers intermittently, still a regular smoker as well, though notes he recently stopped. CXR with bilateral interstitial opacities consistent with edema. CTPA negative for PE, shows small bilateral pleural effusions right greater than left. Bilateral groundglass lung infiltrates and interstitial thickening consistent with pulmonary edema. Calcified atheromatous disease of the coronary arteries. Heart size is mildly enlarged. EKG HR 68 bpm, no ST segment elevation. Sinus rhythm, right bundle branch block. Prolonged QT interval. After 1 dose of lasix IV and large UOP he started feeling a bit improved. Admitted for further care. Consults: Cardiology and pulmonology 10/06: CRP 30.9, BNP 4349. COVID-19 test pending. He feels significantly better and would like to go home as soon as he can. Afebrile. Shortness of breath has resolved. COVID-19 test negative. K3.1, mag 1.8, troponin down to 0.088. Plan to replace lites and discharge outpatient with p.o. Lasix and electrolyte replacement protocol and refill of metoprolol and outpatient follow-up with cardiology. Vitals/I&O Vitals/I&O: Vital Signs Date Time Temp Pulse Resp B/P (MAP) Pulse Ox O2 Delivery O2 Flow Rate FiO2 10/08/19 11:00 97.1 67 18 100/67 (78) 91 Room Air 97.1 I & O 10/07/19 10/07/19 10/08/19 14:59 22:59 06:59 Intake Total 520 ml Output Total 1500 ml Balance -1500 ml 520 ml Physical Exam General: Alert, Oriented X3, Cooperative, No acute distress Heart: Regular rate (paced) Lungs: Clear Abdomen: Soft, No tenderness Extremities: No cyanosis Skin: No breakdown, No significant lesion Labs Labs: Laboratory Tests Test 10/08/19 03:30 White Blood Count 4.9 x10^3/uL (4.0-11.0) Red Blood Count 4.04 x10^6/uL (4.30-5.70) Hemoglobin 12.8 g/dL (13.0-17.5) Hematocrit 38.4 % (39.0-53.0) Mean Corpuscular Volume 95 fL (79-100) Mean Corpuscular Hemoglobin 32 pg (25-35) Mean Corpuscular Hemoglobin Concent 33 g/dL (31-37) Red Cell Distribution Width 15.3 % (11.5-14.5) Platelet Count 162 x10^3/uL (140-400) Neutrophils (%) (Auto) 65 % (31-73) Lymphocytes (%) (Auto) 28 % (24-48) Monocytes (%) (Auto) 4 % (0-9) Eosinophils (%) (Auto) 2 % (0-3) Basophils (%) (Auto) 1 % (0-3) Neutrophils # (Auto) 3.2 x10^3/uL (1.8-7.7) Lymphocytes # (Auto) 1.4 x10^3/uL (1.0-4.8) Monocytes # (Auto) 0.2 x10^3/uL (0.0-1.1) Eosinophils # (Auto) 0.1 x10^3/uL (0.0-0.7) Basophils # (Auto) 0.0 x10^3/uL (0.0-0.2) Sodium Level 142 mmol/L (136-145) Potassium Level 3.1 mmol/L (3.5-5.1) Chloride Level 105 mmol/L (98-107) Carbon Dioxide Level 27 mmol/L (21-32) Anion Gap 10 (6-14) Blood Urea Nitrogen 13 mg/dL (8-26) Creatinine 1.2 mg/dL (0.7-1.3) Estimated GFR (Cockcroft-Gault) 73.8 Glucose Level 89 mg/dL (70-99) Calcium Level 8.1 mg/dL (8.5-10.1) Magnesium Level 1.8 mg/dL (1.8-2.4) Troponin I Quantitative 0.088 ng/mL (0.000-0.055) Assessment and Plan Assessmemt and Plan Problems Medical Problems: (1) CHF (congestive heart failure) Status: Acute (2) Person under investigation for COVID-19 Status: Acute (3) Troponin level elevated Status: Acute Comment Review of Relevant I have reviewed the following items cj (where applicable) has been applied. Medications: Current Medications Medications (Trade) Dose Ordered Sig/Promise Route PRN Reason Start Time Stop Time Status Last Admin Dose Admin Furosemide (Lasix) 40 mg DAILY PO 10/08/19 09:00 10/08/19 07:56 Levothyroxine Sodium (Synthroid) 100 mcg DAILY06 PO 10/08/19 06:00 10/08/19 06:05 Potassium Chloride (Klor-Con) 10 meq DAILY PO 10/08/19 09:00 10/08/19 07:56 Enoxaparin Sodium (Lovenox 40mg Syringe) 40 mg Q24H SQ 10/07/19 16:00 10/07/19 15:48 Magnesium Sulfate 50 ml @ 25 mls/hr 1X ONCE IV 10/08/19 13:00 10/08/19 14:59 10/08/19 13:11 Potassium Chloride (Klor-Con) 40 meq 1X ONCE PO 10/08/19 12:45 10/08/19 12:51 DC 10/08/19 13:10 Justicifation of Admission Dx: Justifications for Admission: Justification of Admission Dx: Yes ME: Acute NSTEMI (ELEVATED TROPONIN) LEXY LIGHT MD Oct 08, 2019 13:49
--- NOTE | 2019-10-08 13:51 | PDOC3 ---
Discharge Summary Visit Information Date of Admission: Oct 06, 2019 Date of Discharge: Oct 08, 2019 Admitting Diagnosis: Acute CHF Final Diagnosis Problems Medical Problems: (1) CHF (congestive heart failure) Status: Acute (2) Person under investigation for COVID-19 Status: Acute (3) Troponin level elevated Status: Acute Brief Hospital Course Allergies Allergies Coded Allergies Type Severity Reaction Last Updated Verified ticagrelor Allergy Severe Swelling 02/03/19 Yes lisinopril Allergy Intermediate facial swelling 07/16/19 Yes Vital Signs Vital Signs Date Time Temp Pulse Resp B/P (MAP) Pulse Ox O2 Delivery O2 Flow Rate FiO2 10/08/19 11:00 97.1 67 18 100/67 (78) 91 Room Air 97.1 Lab Results Laboratory Tests Test 10/06/19 14:56 10/06/19 19:00 10/07/19 00:30 10/07/19 06:05 Urine Collection Type Unknown Urine Color Yellow Urine Clarity Clear Urine pH 5.5 (<5.0-8.0) Urine Specific Blair 1.015 (1.000-1.030) Urine Protein Negative mg/dL (NEG-TRACE) Urine Glucose (UA) Negative mg/dL (NEG) Urine Ketones (Stick) 15 mg/dL (NEG) Urine Blood Large (NEG) Urine Nitrite Negative (NEG) Urine Bilirubin Negative (NEG) Urine Urobilinogen Dipstick 1.0 mg/dL (0.2 mg/dL) Urine Leukocyte Esterase Negative (NEG) Urine RBC 6-10 /HPF (0-2) Urine WBC 1-4 /HPF (0-4) Urine Squamous Epithelial Cells Few /LPF Urine Bacteria Few /HPF (0-FEW) Urine Mucus Slight /LPF Troponin I Quantitative 0.079 ng/mL (0.000-0.055) 0.080 ng/mL (0.000-0.055) 0.090 ng/mL (0.000-0.055) Triglycerides Level 55 mg/dL (0-150) Cholesterol Level 127 mg/dL (0-200) LDL Cholesterol, Calculated 65 mg/dL (0-100) VLDL Cholesterol, Calculated 11 mg/dL (0-40) Non-HDL Cholesterol Calculated 76 mg/dL (0-129) HDL Cholesterol 51 mg/dL (40-60) Cholesterol/HDL Ratio 2.5 Test 10/08/19 03:30 White Blood Count 4.9 x10^3/uL (4.0-11.0) Red Blood Count 4.04 x10^6/uL (4.30-5.70) Hemoglobin 12.8 g/dL (13.0-17.5) Hematocrit 38.4 % (39.0-53.0) Mean Corpuscular Volume 95 fL (79-100) Mean Corpuscular Hemoglobin 32 pg (25-35) Mean Corpuscular Hemoglobin Concent 33 g/dL (31-37) Red Cell Distribution Width 15.3 % (11.5-14.5) Platelet Count 162 x10^3/uL (140-400) Neutrophils (%) (Auto) 65 % (31-73) Lymphocytes (%) (Auto) 28 % (24-48) Monocytes (%) (Auto) 4 % (0-9) Eosinophils (%) (Auto) 2 % (0-3) Basophils (%) (Auto) 1 % (0-3) Neutrophils # (Auto) 3.2 x10^3/uL (1.8-7.7) Lymphocytes # (Auto) 1.4 x10^3/uL (1.0-4.8) Monocytes # (Auto) 0.2 x10^3/uL (0.0-1.1) Eosinophils # (Auto) 0.1 x10^3/uL (0.0-0.7) Basophils # (Auto) 0.0 x10^3/uL (0.0-0.2) Sodium Level 142 mmol/L (136-145) Potassium Level 3.1 mmol/L (3.5-5.1) Chloride Level 105 mmol/L (98-107) Carbon Dioxide Level 27 mmol/L (21-32) Anion Gap 10 (6-14) Blood Urea Nitrogen 13 mg/dL (8-26) Creatinine 1.2 mg/dL (0.7-1.3) Estimated GFR (Cockcroft-Gault) 73.8 Glucose Level 89 mg/dL (70-99) Calcium Level 8.1 mg/dL (8.5-10.1) Magnesium Level 1.8 mg/dL (1.8-2.4) Troponin I Quantitative 0.088 ng/mL (0.000-0.055) Laboratory Tests Test 10/08/19 03:30 White Blood Count 4.9 x10^3/uL (4.0-11.0) Red Blood Count 4.04 x10^6/uL (4.30-5.70) Hemoglobin 12.8 g/dL (13.0-17.5) Hematocrit 38.4 % (39.0-53.0) Mean Corpuscular Volume 95 fL (79-100) Mean Corpuscular Hemoglobin 32 pg (25-35) Mean Corpuscular Hemoglobin Concent 33 g/dL (31-37) Red Cell Distribution Width 15.3 % (11.5-14.5) Platelet Count 162 x10^3/uL (140-400) Neutrophils (%) (Auto) 65 % (31-73) Lymphocytes (%) (Auto) 28 % (24-48) Monocytes (%) (Auto) 4 % (0-9) Eosinophils (%) (Auto) 2 % (0-3) Basophils (%) (Auto) 1 % (0-3) Neutrophils # (Auto) 3.2 x10^3/uL (1.8-7.7) Lymphocytes # (Auto) 1.4 x10^3/uL (1.0-4.8) Monocytes # (Auto) 0.2 x10^3/uL (0.0-1.1) Eosinophils # (Auto) 0.1 x10^3/uL (0.0-0.7) Basophils # (Auto) 0.0 x10^3/uL (0.0-0.2) Sodium Level 142 mmol/L (136-145) Potassium Level 3.1 mmol/L (3.5-5.1) Chloride Level 105 mmol/L (98-107) Carbon Dioxide Level 27 mmol/L (21-32) Anion Gap 10 (6-14) Blood Urea Nitrogen 13 mg/dL (8-26) Creatinine 1.2 mg/dL (0.7-1.3) Estimated GFR (Cockcroft-Gault) 73.8 Glucose Level 89 mg/dL (70-99) Calcium Level 8.1 mg/dL (8.5-10.1) Magnesium Level 1.8 mg/dL (1.8-2.4) Troponin I Quantitative 0.088 ng/mL (0.000-0.055) Brief Hospital Course Mr Santana is a 63yo M w/ PMHx ischemic cardiomyopathy s/p BiV AICD 02/04/2020, reduced EF CHF 25-30%, HLD, HTN, tobacco abuse, CAD s/p YULIANA, and [place] in April 2018 p/w trouble breathing with exertion not able to sleep flat on his back. Patient also had nonproductive cough for couple day, denies any fever. Patient said he was tested for COVID-19 and it came back negative on 07/09. Patient denies any chest pain. Patient has history of CHF, not on diuretics regularly. He does note he didn't recall being on a fluid restriction and has been having 1-2 beers intermittently, still a regular smoker as well, though notes he r ecently stopped. CXR with bilateral interstitial opacities consistent with edema. CTPA negative for PE, shows small bilateral pleural effusions right greater than left. Bilateral groundglass lung infiltrates and interstitial thickening consistent with pulmonary edema. Calcified atheromatous disease of the coronary arteries. Heart size is mildly enlarged. EKG HR 68 bpm, no ST segment elevation. Sinus rhythm, right bundle branch block. Prolonged QT interval. After 1 dose of lasix IV and large UOP he started feeling a bit improved. Admitted for further care. Consults: Cardiology and pulmonology 10/06: CRP 30.9, BNP 4349. COVID-19 test pending. He feels significantly better and would like to go home as soon as he can. Afebrile. Shortness of breath has resolved. COVID-19 test negative. K3.1, mag 1.8, troponin down to 0.088. Plan to replace lites and discharge outpatient with p.o. Lasix and electrolyte replacement protocol and refill of metoprolol and outpatient follow-up with cardiology. Consults: Cardiology Shortness of breath - with CXR more consistent with CHF exacerbation, no other COVID sx or contacts and recent negative testing, this will be treated as CHF exacerbation. Follow K and mag Ischemic cardiomyopathy - with biventricular block, wide QRS, reduced EF 25%, now s/p AICD placement on 02/03. Cardiology to see. Systolic CHF - EF 25-30% seems decompensated. Advised ETOH reduction and fluid restriction, daily weights. Cardiology consulted. IV lasix ordered. Entresto, Metoprolol. Statin, asa ordered. RBBB - stable HLD - on statin HTN - well managed Tobacco abuse - counseled on cessation and high risk recurrent CAD CAD s/p YULIANA - stable, will have cardiology to see. On BB, statin, ASA, and plavix therapy Elevated CRP - will monitor Greater than 30 minutes spent on d/c Discharge Information Condition at Discharge: Improved Follow Up: Weeks (1) Disposition/Orders: D/C to Home Scheduled Amiodarone Hcl (Amiodarone Hcl) 200 Mg Tablet, 200 MG PO BID for , (Reported) Entered as Reported by: NAN LEE RN on 01/27/19 0110 Aspirin (Aspirin Ec) 81 Mg Tablet.dr, 81 MG PO DAILYWBKFT for heart, #30 Ref 2 Prescribed by: JEYSON BOYLE APRN on 04/28/18 112 Last Action: Continued on 10/06/19 153 by MONA VALENCIA Atorvastatin Calcium (Atorvastatin Calcium) 20 Mg Tablet, 40 MG PO QHS for cholesterol, #30 Ref 2 Prescribed by: JEYSON BOYLE APRN on 04/28/18 112 Last Action: Continued on 10/06/19 153 by MONA VALENICA Clopidogrel Bisulfate (Clopidogrel) 75 Mg Tablet, 75 MG PO DAILY for TO PREVENT BLOOD CLOTS, #30 Ref 0 (Reported) Entered as Reported by: Siddhartha Santillan on 01/27/19 0121 Last Action: Continued on 10/06/19 153 by MNOA VALENCIA Furosemide (Lasix) 40 Mg Tablet, 1 TAB PO DAILY for DIURETIC for 30 Days, #30 Ref 0 Prescribed by: LEXY LIGHT MD on 10/07/192 Levothyroxine Sodium (Levothyroxine Sodium) 100 Mcg Tablet, 100 MCG PO DAILYAC for THYROID SUPPLEMENT, #30 Ref 0 (Reported) Entered as Reported by: KERRI GARCIA on 04/28/18 0430 Last Action: Continued on 10/07/19 152 by LEXY LIGHT MD Metoprolol Succinate (Toprol XL) 50 Mg Tab.er.24h, 25 MG PO DAILY for CHF for 30 Days, #15 Prescribed by: LEXY LIGHT MD on 10/07/19 1712 Potassium Chloride (Klor-Con 10) 10 Meq Tablet.er, 1 TAB PO DAILY for POTASSIUM REPLACEMENT for 30 Days, #30 Ref 0 Prescribed by: LEXY LIGHT MD on 10/07/19 1712 Sacubitril/Valsartan (Entresto 49 mg-51 mg Tablet) 1 Each Tablet, 1 EACH PO DAILY for chf, (Reported) Entered as Reported by: Siddhartha Santillan on 01/27/19 0121 Last Action: Continued on 10/06/19 1530 by MONA VALENCIA Scheduled PRN Nitroglycerin (Nitrostat) 0.4 Mg Tab.subl, 0.4 MG SL PRN Q5MIN PRN for CHEST PAIN for 30 Days, #30 PLEASE TAKE NEEDED FOR CHEST PAIN, REPEAT EVERY 5 MIN X 3 PLEASE CALL MD IF PAIN NOT RESOLVED AFTER THIRD DOSE. Prescribed by: TRISH LEE MD on 04/28/18 1204 Last Action: Continued on 10/07/19 1529 by LEXY LIGHT MD Discontinued Medications Metoprolol Tartrate (Metoprolol Tartrate) 25 Mg Tablet, 12.5 MG PO BID for heart, #30 Ref 2 Prescribed by: JEYSON BOYLE APRN on 04/28/18 1124 Justicifation of Admission Dx: Justifications for Admission: Justification of Admission Dx: Yes NE: Acute NSTEMI (ELEVATED TROPONIN) LEXY LIGHT MD Oct 08, 2019 13:51
[2019-10-08 15:00] VITALS: BP 98/64
--- NOTE | 2019-10-08 16:00 | NUR ---
Discharge Note: ANGIE HAN [address] [place] [address] Discharge instructions and discharge home medications reviewed with Patient and a copy given. All questions have been answered and understanding verbalized. The following instructions and handouts were given: CHF info, diet & fluid restriction info, medication info, smoking cessation info, discharge instructions. Discontinued lines and drains: Peripheral IV intact. Patient discharged to Home or Self Care with Family Member via [facility] at 1600.
[2019-10-09] MEDS ORDERED: METOPROLOL SUCC 24HR ER 25 MG TAB.ER.24H. PO SCH (09:00)
== END 2019-10-08 16:00 | disposition home or self-care (01) | DRG 293 ==
LOC: ER 10:51 → 6 SOUTH 13:06
PROVIDERS: ADMIT Internal Medicine; ATTEND Internal Medicine
DX: I11.0 Hypertensive heart disease with heart failure (principal); I50.43 Acute on chronic combined systolic (congestive) and diastolic (congestive) heart failure; I25.5 Ischemic cardiomyopathy; I48.91 Unspecified atrial fibrillation; I25.10 Atherosclerotic heart disease of native coronary artery without angina pectoris; E78.5 Hyperlipidemia, unspecified; F17.210 Nicotine dependence, cigarettes, uncomplicated; E03.9 Hypothyroidism, unspecified; I45.10 Unspecified right bundle-branch block; J44.9 Chronic obstructive pulmonary disease, unspecified; M19.90 Unspecified osteoarthritis, unspecified site; I25.2 Old myocardial infarction; Z20.828 Contact with and (suspected) exposure to other viral communicable diseases; Z95.5 Presence of coronary angioplasty implant and graft; Z88.8 Allergy status to other drugs, medicaments and biological substances; Z83.3 Family history of diabetes mellitus; Z82.3 Family history of stroke; Z82.49 Family history of ischemic heart disease and other diseases of the circulatory system; Z95.810 Presence of automatic (implantable) cardiac defibrillator
CPT/HCPCS: 36415; 71045; 71275; 80048; 80053; 80061; 81001; 82550; 82553; 82728; 83690; 83735; 83880; 84443; 84484; 85007; 85025; 85379; 85610; 85730; 86140; 93005; J1650; J1940; J3475; Q9967; 99285-25; G0378; U0003-CS

== ENCOUNTER → 2019-11-23 | Outpatient (CLI) | payer BC ==
[~2019-11-23] MED LIST changes: +METO50TA4 PO; +REGADENOSON 0.4 MG/5 ML DISP.SYRIN. IV ONE
--- NOTE | 2019-11-23 16:39 | RAD ---
MR#: [id number] Date of Study: 11/23/2019 Ordering Physician: MAGED SERRATO, Referring Physician: TAMMY REDDY Tech: RT Nadine (R) (N) APPROVED REPORT Test Type: Pharmacological Stress Nurse/Tech: CATHY CRUZ Test Indications: CHRONIC CHF, ELEVATED TROPONIN Cardiac History: STENT, CHF, PPM/AICD, SMOKER, SEE EMR Medications: SEE EMR Medical History: SEE EMR Resting ECG: V-PACED W/BBB, PROLONGED QT Resting Heart Rate: 63 bpm Resting Blood Pressure: 107/65mmHg Pretest Chest Pain: No chest pain Nurse/Tech Notes REGULAR RATE, LUNGS CTA, DENIED CP OR SOA. Consent: The procedure was explained to the patient in lay terms. Informed consent was witnessed. Jimbo eout was entered into [employer]. History and Stress Test performed by CHRIS Perry, ARRT (R) (N) Pharm. Details Pharmacologic stress testing was performed using 0.4mg per 5ml of regadenoson given intravenously ove r 7-10 seconds. Stress Symptoms PT DENIED ANY SYMPTOMS DURING TESTING. VSS. POST EXERCISE Reason for Termination: Infusion complete Max HR: 72 bpm Max Blood Pressure: 98/49mmHg Blood Pressure response to exercise: Normal blood pressure response during stress. Heart Rate response to exercise: NORMAL HEART RATE RESPONSE DURING STRESS Chest Pain: No. Arrhythmia: . NO SIGNIFICANT CHANGES FROM BASELINE EKG. ST Change: No. INTERPRETATION Stress EKG Conclusion: The resting EKG shows a sinus rhythm. Possible pacemaker spikes are present. The stress EKG shows no significant change from baseline. No EKG evidence of stress-induced ischemia. Imaging Protocol IMAGE PROTOCOL: Rest Tc-99m/stress Tc-99m 1 day Rest: Stress: Viability: Radiopharm.Tc99m VllygoarnCp57m Sestamibi Mhae16vAv 33mCi Duration 13.5min. 13.5min. Img Date 11/23/2019 11/23/2019 Inj-Img [id number]. 60min. Rest Admin Site:IV - Right HandAdministrator:RT Nadine (R)(N) Stress Admin Site: IV - Right HandAdministrator: Hoa Dawkins, TAMMYTCB, ARRT (R)(N) STRESS DATA End Diast. Vol.288.0mlLVEDV index RRR259.0ml End Syst. Vol.218.0mlLVESV index OUT150.0ml Myocardial Tvrt149.0gEject. Wilvmntq92.0% Stress Scores Regional WT3.00Summed WT43.00 Regional WM1.00Summed WM30.00 LV Perfusion The stress images show a moderate defect in the anterior apical region and a mild defect in the infer ior wall. The rest images show a moderate defect in the anterior apical region mild defect in the inferior wall . 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 Both regions may have mild justus-infarct ischemia. Wall Motion Left ventricular systolic function is severely decreased with an ejection fraction of 23%. TID is 0. 99. There is global hypokinesis somewhat more prominent in the anterior apical region LV Perf. Quant 17 Seg. SSS17.00 17 Seg. SRS20.00 17 Seg. SDS1.00 Stress Defect Extent (% LAD)61.90Rest Defect Extent (% LAD)62.50Rev. Defect Extent (% LAD)7.50 Stress Defect Extent (% LCX) 28.80Rest Defect Extent (% LCX)23.80Rev. Defect Extent (% LCX)12.50 Stress Defect Extent (% RCA)0.00Rest Defect Extent (% RCA)14.40Rev. Defect Extent (% RCA)0.00 Stress Defect Extent (% J CARLOS)38.50Rest Defect Extent (% J CARLOS)44.10Rev. Defect Extent (% J CARLOS)5.40 Conclusion 1. No EKG evidence of stress-induced ischemia. 2. Nuclear imaging shows previous infarct in the anterior apical region in the inferior wall. Possib le mild justus-infarct ischemia is present. 3. Severely decreased LV function with an ejection fraction of 23%. There is diffuse hypokinesis mark ewhat more prominent in the anterior apical region. 4. Moderate risk Lexiscan nuclear stress test consistent with previous infarcts and decreased ejectio n fraction Signed by : Cole Curiel MD Electronically Approved : 11/23/2019 16:39:07
--- NOTE | 2019-11-23 18:33 | CARD ---
MR#: [id number] Date of Study: 11/23/2019 Ordering Physician: YANN CURIEL, Referring Physician: YANN CURIEL, Tech: Kathia rCuz PREETI APPROVED REPORT EXAM: Two-dimensional and M-mode echocardiogram with Doppler and color Doppler. Other Information Quality : Good INDICATION Congestive Heart Failure Surgery/Intervention ICD/Pacemaker: Date: 04/2018 2D DIMENSIONS RVDd2.7 (2.9-3.5cm)Left Atrium(2D)4.5 (1.6-4.0cm) IVSd0.9 (0.7-1.1cm)Aortic Root(2D)3.4 (2.0-3.7cm) LVDd6.6 (3.9-5.9cm)LVOT Diameter2.4 (1.8-2.4cm) PWd0.9 (0.7-1.1cm)LVDs5.2 (2.5-4.0cm) FS (%) 12.0 %SV92.1 ml LVEF(%)25.0 (>50%) Aortic Valve AoV Peak Jordan.103.8cm/sAoV VTI19.8cm AO Peak GR.4.3mmHgLVOT Peak Jordan.81.9cm/s AO Mean GR.3mmHgAVA (VMAX)3.61cm2 SIVAN (VTI)3.99my7UD P 1/2 [id number] Mitral Valve MV E Geuvawqd69.3cm/sMV DECEL LUZP129tv MV A Fybabwvd236.3cm/sE/A Ratio0.5 Tricuspid Valve TR P. Vvitzmnb765ht/sRAP TFJIDDMJ6wtHu TR Peak Gr.43rkArCFTT54ytSr Pulmonary Vein S1 Iepulhcb78.3cm/sD2 Ylphbjta35.8cm/s LEFT VENTRICLE The Left Ventricle is moderately dilated. There is normal left ventricular wall thickness. Left ventr icle systolic function is severely impaired. The Ejection Fraction is estimated at 20%. There is niki re global hypokinesis of the left ventricle. Transmitral Doppler flow pattern is Grade I-abnormal rel axation pattern. RIGHT VENTRICLE The right ventricle is normal size. The right ventricular systolic function is normal. There are prob able device leads in the right ventricle and atrium. ATRIA The left atrium is mildly dilated. The right atrium size is normal. The interatrial septum is intact with no evidence for an atrial septal defect or patent foramen ovale as noted on 2-D or Doppler imagi ng. AORTIC VALVE The aortic valve is mildly thickened but opens well. Doppler and Color Flow revealed trace aortic reg urgitation. There is no significant aortic valvular stenosis. MITRAL VALVE The mitral valve is calcified but opens well. Mitral annular calcification is mild. There is no evide nce of mitral valve prolapse. There is no mitral valve stenosis. Doppler and Color-flow revealed mild to moderate mitral regurgitation. TRICUSPID VALVE The tricuspid valve is normal in structure and function. Doppler and Color Flow revealed mild tricusp id regurgitation. The PA pressure was estimated at 30 mmHg. There is no tricuspid valve stenosis. PULMONIC VALVE The pulmonic valve is not well visualized. Doppler and Color Flow revealed trace pulmonic valvular re gurgitation. There is no pulmonic valvular stenosis. GREAT VESSELS The aortic root is normal in size. The ascending aorta is not well seen. The IVC is normal in size an d collapses >50% with inspiration. PERICARDIAL EFFUSION There is no evidence of significant pericardial effusion. Critical Notification Critical Value: No <Conclusion> The Left Ventricle is moderately dilated. Left ventricle systolic function is severely impaired. The Ejection Fraction is estimated at 20%. There is severe global hypokinesis of the left ventricle. Doppler and Color Flow revealed trace aortic regurgitation. There is no significant aortic valvular stenosis. Doppler and Color-flow revealed mild to moderate mitral regurgitation. Doppler and Color Flow revealed mild tricuspid regurgitation. The PA pressure was estimated at 30 mmHg. Signed by : Yann Curiel MD Electronically Approved : 11/23/2019 18:32:42
== END | disposition home or self-care (01) ==
LOC: NM 08:55
PROVIDERS: ATTEND Internal Medicine Cardiovascular Disease
DX: I08.3 Combined rheumatic disorders of mitral, aortic and tricuspid valves (principal); I50.9 Heart failure, unspecified; Z87.891 Personal history of nicotine dependence; Z95.5 Presence of coronary angioplasty implant and graft
CPT/HCPCS: 78452; 93017; 93306; A9500; J2785

== ENCOUNTER 2020-03-02 07:45 | Inpatient (IN) | payer BC ==
[~2020-03-02] VITALS: Ht 188 cm; Wt 78.5 kg
[~2020-03-02 07:45] MED LIST changes: -AMIO200T4 PO; +AMIO200T6 PO; -REGADENOSON 0.4 MG/5 ML DISP.SYRIN. IV ONE
--- NOTE | 2020-03-02 09:03 | PHYS DOC ---
Past Medical History Past Medical History: A-Fib, CAD, CO Additional Past Medical Histor: TWO CARDIAC STENTS Past Surgical History: Pacemaker, Other Additional Past Surgical Histo: Stent x1 placement, ICD Smoking Status: Current Some Day Smoker Alcohol Use: Occasionally Drug Use: None General Adult EDM: Chief Complaint: SHORTNESS OF BREATH HPI: HPI: Patient is a 64 year old male who presented to ER for evaluation of trouble breathing with exertion for 1 week. His symptoms got worse the last 3 days. Patient had trouble sleeping last 3 days as well. Patient denies any fever. Patient had nonproductive cough for couple days. Patient denies any chest pain. Patient denies any chills, no known exposure to COVID-19 infection. Patient has history of CHF, coronary artery disease, AICD. He was on lasix before but recently told not to take lasix anymore because he does not need it. Review of Systems: Review of Systems: Constitutional: Denies fever or chills. [] Eyes: Denies change in visual acuity. [] HENT: Denies nasal congestion or sore throat. [] Respiratory: Positive for cough and shortness of breath. [] Cardiovascular: Denies chest pain or edema. [] GI: Denies abdominal pain, nausea, vomiting, bloody stools or diarrhea. [] : Denies dysuria. [] Musculoskeletal: Denies back pain or joint pain. [] Integument: Denies rash. [] Neurologic: Denies headache, focal weakness or sensory changes. [] Endocrine: Denies polyuria or polydipsia. [] Lymphatic: Denies swollen glands. [] Psychiatric: Denies depression or anxiety. [] Heart Score: Risk Factors: Risk Factors: DM, Current or recent (<one month) smoker, HTN, HLP, family history of CAD, obesity. Risk Scores: Score 0 - 3: 2.5% MACE over next 6 weeks - Discharge Home Score 4 - 6: 20.3% MACE over next 6 weeks - Admit for Clinical Observation Score 7 - 10: 72.7% MACE over next 6 weeks - Early Invasive Strategies Allergies: Allergies: Allergies Coded Allergies Type Severity Reaction Last Updated Verified ticagrelor Allergy Severe Swelling 02/03/19 Yes lisinopril Allergy Intermediate facial swelling 07/16/19 Yes Physical Exam: PE: Constitutional: Well developed, well nourished, no acute distress, non-toxic appearance. [] HENT: Normocephalic, atraumatic, bilateral external ears normal, oropharynx moist, no oral exudates, nose normal. [] Eyes: PERRLA, EOMI, conjunctiva normal, no discharge. [] Neck: Normal range of motion, no tenderness, supple, no stridor. [] Cardiovascular:Heart rate regular rhythm, no murmur [] Lungs & Thorax: Bilateral breath sounds clear to auscultation [] Abdomen: Bowel sounds normal, soft, no tenderness, no masses, no pulsatile masses. [] Skin: Warm, dry, no erythema, no rash. [] Back: No tenderness, no CVA tenderness. [] Extremities: No tenderness, no cyanosis, no clubbing, ROM intact, no edema. [] Neurologic: Alert and oriented X 3, normal motor function, normal sensory function, no focal deficits noted. [] Psychologic: Affect normal, judgement normal, mood normal. [] Current Patient Data: Labs: Laboratory Tests Test 03/02/20 09:12 White Blood Count 4.0 x10^3/uL Red Blood Count 3.74 x10^6/uL Hemoglobin 12.1 g/dL Hematocrit 36.0 % Mean Corpuscular Volume 96 fL Mean Corpuscular Hemoglobin 32 pg Mean Corpuscular Hemoglobin Concent 34 g/dL Red Cell Distribution Width 14.7 % Platelet Count 131 x10^3/uL Neutrophils (%) (Auto) 66 % Lymphocytes (%) (Auto) 25 % Monocytes (%) (Auto) 7 % Eosinophils (%) (Auto) 2 % Basophils (%) (Auto) 1 % Neutrophils # (Auto) 2.7 x10^3/uL Lymphocytes # (Auto) 1.0 x10^3/uL Monocytes # (Auto) 0.3 x10^3/uL Eosinophils # (Auto) 0.1 x10^3/uL Basophils # (Auto) 0.0 x10^3/uL Sodium Level 143 mmol/L Potassium Level 3.8 mmol/L Chloride Level 107 mmol/L Carbon Dioxide Level 22 mmol/L Anion Gap 14 Blood Urea Nitrogen 12 mg/dL Creatinine 1.4 mg/dL Estimated GFR (Cockcroft-Gault) 61.7 BUN/Creatinine Ratio 9 Glucose Level 105 mg/dL Calcium Level 9.1 mg/dL Magnesium Level 2.1 mg/dL Total Bilirubin 0.9 mg/dL Aspartate Amino Transf (AST/SGOT) 17 U/L Alanine Aminotransferase (ALT/SGPT) 20 U/L Alkaline Phosphatase 69 U/L Troponin I Quantitative 0.084 ng/mL DL-Qga-Y-Type Natriuretic Peptide 7662 pg/mL Total Protein 7.4 g/dL Albumin 3.6 g/dL Albumin/Globulin Ratio 0.9 Vital Signs: Vital Signs Date Time Temp Pulse Resp B/P (MAP) Pulse Ox O2 Delivery O2 Flow Rate FiO2 03/02/20 08:40 97.7 72 24 113/76 (88) 96 Room Air 97.7 EKG: EKG: EKG was done at 9.3, heart rate 69 bpm, sinus rhythm, no ST segment elevation, PVC. Radiology/Procedures: Radiology/Procedures: [facility] [address] [place] [address] IMAGING REPORT Signed PATIENT: ANGIE HAN ACCOUNT: [id number] : 1955 LOCATION: ER AGE: 64 SEX: M EXAM STATUS: REG ER ORD. PHYSICIAN: ALE REED DO REASON: SOA PROCEDURE: CHEST AP ONLY XR CHEST 1V INDICATION: Reason: SOA / Spl. Instructions: / History: . COMPARISON STUDY: 10/06/2019. FINDINGS: Left pectoral pacemaker. Lungs: Normal lung volume. Patchy left lung opacities. The tracheobronchial tree and hilar structures are normal. Pleura: No pleural effusion or pneumothorax. Heart and Mediastinum: Cardiomegaly. The great vessels of the thorax are normal. IMPRESSION: Patchy left lung opacities concerning for an infectious/inflammatory process. Electronically signed by: Santos Cohn MD (03/02/2020 9:09 AM) [id number] DICTATED and SIGNED BY: SANTOS COHN MD DATE: 03/02/20 [id number] 0 Course & Med Decision Making: Course & Med Decision Making Pertinent Labs and Imaging studies reviewed. (See chart for details) Patient is a 64-year-old male who presented with exertional dyspnea, his BNP is elevated significantly. Chest x-ray show cardiomegaly with some patchy infiltration of the left side. However patient denies any fever, normal white blood cell count, nonproductive cough. Patient will be admitted to hospital for further evaluation and treatment. Dragon Disclaimer: Dragon Disclaimer: This electronic medical record was generated, in whole or in part, using a voice recognition dictation system. Departure Departure Impression: Primary Impression: Acute exacerbation of CHF (congestive heart failure) Disposition: ADMITTED INPT THIS HOSP Admitting Physician: GORDO (DR. PHILLIPS) Condition: STABLE Referrals: ROBERT SHRESTHA MD (PCP) ALE REED DO Mar 02, 2020 09:03
--- NOTE | 2020-03-02 09:11 | RAD ---
XR CHEST 1V INDICATION: Reason: SOA / Spl. Instructions: / History: . COMPARISON STUDY: 10/06/2019. FINDINGS: Left pectoral pacemaker. Lungs: Normal lung volume. Patchy left lung opacities. The tracheobronchial tree and hilar structures are normal. Pleura: No pleural effusion or pneumothorax. Heart and Mediastinum: Cardiomegaly. The great vessels of the thorax are normal. IMPRESSION: Patchy left lung opacities concerning for an infectious/inflammatory process. Electronically signed by: Rick Quevedo MD (03/02/2020 9:09 AM) [id number]
[2020-03-02 09:37] LABS: BASO % 1 % (0-3); CALCIUM 9.1 mg/dL (8.5-10.1); CREATININE 1.4 mg/dL (0.7-1.3); EOS # 0.1 x10^3/uL (0.0-0.7); EOS % 2 % (0-3); GFR 61.7; HEMOGLOBIN 12.1 g/dL (13.0-17.5); LYMPH % 25 % (24-48); MEAN CORPUSCULAR HEMOGLOBIN 32 pg (25-35); MEAN CORPUSCULAR HGB CONC 34 g/dL (31-37); MEAN CORPUSCULAR VOLUME 96 fL (79-100); MONO # 0.3 x10^3/uL (0.0-1.1); MONO % 7 % (0-9); NEUT # 2.7 x10^3/uL (1.8-7.7); NEUT % 66 % (31-73); PLATELET COUNT 131 x10^3/uL (140-400); POTASSIUM 3.8 mmol/L (3.5-5.1); RED BLOOD COUNT 3.74 x10^6/uL (4.30-5.70); RED CELL DISTRIBUTION WIDTH 14.7 % (11.5-14.5)
[2020-03-02 09:42] LABS: ALBUMIN 3.6 g/dL (3.4-5.0); ALBUMIN/GLOBULIN RATIO 0.9 (1.0-1.7); MAGNESIUM 2.1 mg/dL (1.8-2.4); TOTAL BILIRUBIN 0.9 mg/dL (0.2-1.0); TOTAL PROTEIN 7.4 g/dL (6.4-8.2)
--- NOTE | 2020-03-02 10:52 | PDOC1 ---
History and Physical Date of Admission Date of Admission DATE: 03/02/20 TIME: 10:51 Identification/Chief Complaint Chief Complaint SEEN IN ER WITH ACUTE ON CHRONIC CHF64 year old male who presented to ER for evaluation of trouble breathing with exertion for 1 week. His symptoms got worse the last 3 days. Patient had trouble sleeping last 3 days as well. Patient denies any fever. Patient had nonproductive cough for couple days. Patient denies any chest pain. denies any chills, no known exposure to COVID-19 infection, BUT HAS HAD GRANCHILDREN IN HOME . Patient has history of CHF, coronary artery disease, AICD. He was on lasix before but recently told not to take lasix Past Medical History Past Medical History Past Medical History Past Medical History: A-Fib, CAD, [place] Additional Past Medical Histor: TWO CARDIAC STENTS Past Surgical History: Pacemaker, Other Additional Past Surgical Histo: Stent x1 placement, ICD Smoking Status: Current Some Day Smoker Alcohol Use: Occasionally Drug Use: None FHX COPD Cardiovascular: CAD, CHF, HTN, VT, Hyperlipidemia, Other Pulmonary: No pertinent hx Musculoskeletal: Osteoarthritis Endocrine: Hypothyroidism Past Surgical History Past Surgical History: Pacemaker, Other Family History Family History: Diabetes, Heart Disease, Stroke Social History Smoke: No ALCOHOL: rare Drugs: None Current Problem List Problem List Problems Medical Problems: (1) Acute exacerbation of CHF (congestive heart failure) Status: Acute Current Medications Current Medications Active Scripts Active Toprol XL (Metoprolol Succinate) 50 Mg Tab.er.24h 25 Mg PO DAILY 30 Days Klor-Con 10 (Potassium Chloride) 10 Meq Tablet.er 1 Tab PO DAILY 30 Days Lasix (Furosemide) 40 Mg Tablet 1 Tab PO DAILY 30 Days Nitrostat (Nitroglycerin) 0.4 Mg Tab.subl 0.4 Mg SL PRN Q5MIN PRN 30 Days PLEASE TAKE NEEDED FOR CHEST PAIN, REPEAT EVERY 5 MIN X 3 PLEASE CALL MD IF PAIN NOT RESOLVED AFTER THIRD DOSE. Aspirin Ec (Aspirin) 81 Mg Tablet.dr 81 Mg PO DAILYWBKFT Atorvastatin Calcium 20 Mg Tablet 40 Mg PO QHS Reported Entresto 49 mg-51 mg Tablet (Sacubitril/Valsartan) 1 Each Tablet 1 Each PO DAILY Clopidogrel (Clopidogrel Bisulfate) 75 Mg Tablet 75 Mg PO DAILY Amiodarone Hcl 200 Mg Tablet 200 Mg PO BID Levothyroxine Sodium 100 Mcg Tablet 100 Mcg PO DAILYAC Allergies Allergies: Coded Allergies: ticagrelor (Verified Allergy, Severe, Swelling, 02/03/19) lisinopril (Verified Allergy, Intermediate, facial swelling, 07/16/19) ROS Review of System Constitutional: Denies fever or chills. [] Eyes: Denies change in visual acuity. [] HENT: Denies nasal congestion or sore throat. [] Respiratory: Positive for cough and shortness of breath. [] Cardiovascular: Denies chest pain or edema. [] GI: Denies abdominal pain, nausea, vomiting, bloody stools or diarrhea. [] : Denies dysuria. [] Musculoskeletal: Denies back pain or joint pain. [] Integument: Denies rash. [] Neurologic: Denies headache, focal weakness or sensory changes. [] Endocrine: Denies polyuria or polydipsia. [] Lymphatic: Denies swollen glands. [] Psychiatric: Denies depression or anxiety. [] 14 PT ROS OTHERWISE NEG Physical Exam Physical Exam Constitutional: Well developed, well nourished, no acute distress, non-toxic appearance. [] HENT: Normocephalic, atraumatic, bilateral external ears normal, oropharynx moist, no oral exudates, nose normal. [] Eyes: PERRLA, EOMI, conjunctiva normal, no discharge. [] Neck: Normal range of motion, no tenderness, supple, no stridor. [] Cardiovascular:Heart rate regular rhythm, no murmur [] Lungs & Thorax: Bilateral breath sounds clear to auscultation [] Abdomen: Bowel sounds normal, soft, no tenderness, no masses, no pulsatile masses. [] Skin: Warm, dry, no erythema, no rash. [] Back: No tenderness, no CVA tenderness. [] Extremities: No tenderness, no cyanosis, no clubbing, ROM intact, no edema. [] Neurologic: Alert and oriented X 3, normal motor function, normal sensory function, no focal deficits noted. [] Psychologic: Affect normal, judgment normal, mood normal. [] General: Alert, Oriented X3, Cooperative Lungs: Clear to auscultation, Normal air movement Breasts: Not examined Abdomen: Soft Rectal Exam: not examined PELVIC: Examination not indicated Extremities: No cyanosis Neuro: Normal gait, Normal speech, Cranial nerves 3-12 NL Psych/Mental Status: Mental status NL, Mood NL Vitals Vitals Vital Signs Date Time Temp Pulse Resp B/P (MAP) Pulse Ox O2 Delivery O2 Flow Rate FiO2 03/02/20 08:40 97.7 72 24 113/76 (88) 96 Room Air 97.7 Labs Labs Laboratory Tests Test 03/02/20 09:12 White Blood Count 4.0 x10^3/uL (4.0-11.0) Red Blood Count 3.74 x10^6/uL (4.30-5.70) Hemoglobin 12.1 g/dL (13.0-17.5) Hematocrit 36.0 % (39.0-53.0) Mean Corpuscular Volume 96 fL (79-100) Mean Corpuscular Hemoglobin 32 pg (25-35) Mean Corpuscular Hemoglobin Concent 34 g/dL (31-37) Red Cell Distribution Width 14.7 % (11.5-14.5) Platelet Count 131 x10^3/uL (140-400) Neutrophils (%) (Auto) 66 % (31-73) Lymphocytes (%) (Auto) 25 % (24-48) Monocytes (%) (Auto) 7 % (0-9) Eosinophils (%) (Auto) 2 % (0-3) Basophils (%) (Auto) 1 % (0-3) Neutrophils # (Auto) 2.7 x10^3/uL (1.8-7.7) Lymphocytes # (Auto) 1.0 x10^3/uL (1.0-4.8) Monocytes # (Auto) 0.3 x10^3/uL (0.0-1.1) Eosinophils # (Auto) 0.1 x10^3/uL (0.0-0.7) Basophils # (Auto) 0.0 x10^3/uL (0.0-0.2) Sodium Level 143 mmol/L (136-145) Potassium Level 3.8 mmol/L (3.5-5.1) Chloride Level 107 mmol/L (98-107) Carbon Dioxide Level 22 mmol/L (21-32) Anion Gap 14 (6-14) Blood Urea Nitrogen 12 mg/dL (8-26) Creatinine 1.4 mg/dL (0.7-1.3) Estimated GFR (Cockcroft-Gault) 61.7 BUN/Creatinine Ratio 9 (6-20) Glucose Level 105 mg/dL (70-99) Calcium Level 9.1 mg/dL (8.5-10.1) Magnesium Level 2.1 mg/dL (1.8-2.4) Total Bilirubin 0.9 mg/dL (0.2-1.0) Aspartate Amino Transf (AST/SGOT) 17 U/L (15-37) Alanine Aminotransferase (ALT/SGPT) 20 U/L (16-63) Alkaline Phosphatase 69 U/L (46-116) Troponin I Quantitative 0.084 ng/mL (0.000-0.055) SP-Jgk-G-Type Natriuretic Peptide 7662 pg/mL (0-124) Total Protein 7.4 g/dL (6.4-8.2) Albumin 3.6 g/dL (3.4-5.0) Albumin/Globulin Ratio 0.9 (1.0-1.7) Laboratory Tests Test 03/02/20 09:12 White Blood Count 4.0 x10^3/uL (4.0-11.0) Red Blood Count 3.74 x10^6/uL (4.30-5.70) Hemoglobin 12.1 g/dL (13.0-17.5) Hematocrit 36.0 % (39.0-53.0) Mean Corpuscular Volume 96 fL (79-100) Mean Corpuscular Hemoglobin 32 pg (25-35) Mean Corpuscular Hemoglobin Concent 34 g/dL (31-37) Red Cell Distribution Width 14.7 % (11.5-14.5) Platelet Count 131 x10^3/uL (140-400) Neutrophils (%) (Auto) 66 % (31-73) Lymphocytes (%) (Auto) 25 % (24-48) Monocytes (%) (Auto) 7 % (0-9) Eosinophils (%) (Auto) 2 % (0-3) Basophils (%) (Auto) 1 % (0-3) Neutrophils # (Auto) 2.7 x10^3/uL (1.8-7.7) Lymphocytes # (Auto) 1.0 x10^3/uL (1.0-4.8) Monocytes # (Auto) 0.3 x10^3/uL (0.0-1.1) Eosinophils # (Auto) 0.1 x10^3/uL (0.0-0.7) Basophils # (Auto) 0.0 x10^3/uL (0.0-0.2) Sodium Level 143 mmol/L (136-145) Potassium Level 3.8 mmol/L (3.5-5.1) Chloride Level 107 mmol/L (98-107) Carbon Dioxide Level 22 mmol/L (21-32) Anion Gap 14 (6-14) Blood Urea Nitrogen 12 mg/dL (8-26) Creatinine 1.4 mg/dL (0.7-1.3) Estimated GFR (Cockcroft-Gault) 61.7 BUN/Creatinine Ratio 9 (6-20) Glucose Level 105 mg/dL (70-99) Calcium Level 9.1 mg/dL (8.5-10.1) Magnesium Level 2.1 mg/dL (1.8-2.4) Total Bilirubin 0.9 mg/dL (0.2-1.0) Aspartate Amino Transf (AST/SGOT) 17 U/L (15-37) Alanine Aminotransferase (ALT/SGPT) 20 U/L (16-63) Alkaline Phosphatase 69 U/L (46-116) Troponin I Quantitative 0.084 ng/mL (0.000-0.055) NR-Auf-U-Type Natriuretic Peptide 7662 pg/mL (0-124) Total Protein 7.4 g/dL (6.4-8.2) Albumin 3.6 g/dL (3.4-5.0) Albumin/Globulin Ratio 0.9 (1.0-1.7) Images Images Aortic Valve AoV Peak Jordan. 103.8cm/s AoV VTI 19.8cm AO Peak GR. 4.3mmHg LVOT Peak Jordan. 81.9cm/s AO Mean GR. 3mmHg SIVAN (VMAX) 3.61cm2 SIVAN (VTI) 3.80cm2 AI P 1/2 Time 1066ms Mitral Valve MV E Velocity 58.3cm/s MV DECEL TIME 211ms MV A Velocity 106.3cm/s E/A Ratio 0.5 Tricuspid Valve TR P. Velocity 260cm/s RAP ESTIMATE 3mmHg TR Peak Gr. 27mmHg RVSP 30mmHg Pulmonary Vein S1 Velocity 65.3cm/s D2 Velocity 36.8cm/s LEFT VENTRICLE The Left Ventricle is moderately dilated. There is normal left ventricular wall thickness. Left ventricle systolic function is severely impaired. The Ejection Fraction is estimated at 20%. There is severe global hypokinesis of the left ventricle. Transmitral Doppler flow pattern is Grade I-abnormal relaxation pattern. RIGHT VENTRICLE The right ventricle is normal size. The right ventricular systolic function is normal. There are probable device leads in the right ventricle and atrium. ATRIA The left atrium is mildly dilated. The right atrium size is normal. The interatrial septum is intact with no evidence for an atrial septal defect or patent foramen ovale as noted on 2-D or Doppler imaging. AORTIC VALVE The aortic valve is mildly thickened but opens well. Doppler and Color Flow revealed trace aortic regurgitation. There is no significant aortic valvular stenosis. MITRAL VALVE The mitral valve is calcified but opens well. Mitral annular calcification is mild. There is no evidence of mitral valve prolapse. There is no mitral valve stenosis. Doppler and Color-flow revealed mild to moderate mitral regurgitation. TRICUSPID VALVE The tricuspid valve is normal in structure and function. Doppler and Color Flow revealed mild tricuspid regurgitation. The PA pressure was estimated at 30 mmHg. There is no tricuspid valve stenosis. PULMONIC VALVE The pulmonic valve is not well visualized. Doppler and Color Flow revealed trace pulmonic valvular regurgitation. There is no pulmonic valvular stenosis. GREAT VESSELS The aortic root is normal in size. The ascending aorta is not well seen. The IVC is normal in size and collapses >50% with inspiration. PERICARDIAL EFFUSION There is no evidence of significant pericardial effusion. Critical Notification Critical Value: No <Conclusion> The Left Ventricle is moderately dilated. Left ventricle systolic function is severely impaired. The Ejection Fraction is estimated at 20%. There is severe global hypokinesis of the left ventricle. Doppler and Color Flow revealed trace aortic regurgitation. There is no significant aortic valvular stenosis. Doppler and Color-flow revealed mild to moderate mitral regurgitation. Doppler and Color Flow revealed mild tricuspid regurgitation. The PA pressure was estimated at 30 mmHg. Signed by : Yann Curiel MD Electronically Approved : 11/23/2019 18:32:42 DICTATED and SIGNED BY: YANN CURIEL MD DATE: 11/23/19 1015 Radiopharm. Tc99m Sestamibi Tc99m Sestamibi Dose 12mCi 33mCi Duration 13.5min. 13.5min. Img Date 11/23/2019 11/23/2019 Inj-Img Time 45min. 60min. Rest Admin Site: IV - Right Hand Materials Technician: Isaiah Ludwig, RT (R)(N) Stress Admin Site: IV - Right Hand Materials Technician: Hoa Dawkins, NMTCB, ARRT (R)(N) STRESS DATA End Diast. Vol. 288.0ml LVEDV index BSA 141.0ml End Syst. Vol. 218.0ml LVESV index BSA 107.0ml Myocardial Mass 244.0g Eject. Fraction 24.0% Stress Scores Regional WT 3.00 Summed WT 43.00 Regional WM 1.00 Summed WM 30.00 LV Perfusion The stress images show a moderate defect in the anterior apical region and a mild defect in the inferior wall. The rest images show a moderate defect in the anterior apical region mild defect in the inferior wall. Nuclear imaging is consistent with a previous infarct in the anterior apical region and a previous infarct in the inferior wall. Both regions may have mild justus-infarct ischemia. Wall Motion Left ventricular systolic function is severely decreased with an ejection frac tion of 23%. TID is 0.99. There is global hypokinesis somewhat more prominent in the anterior apical region LV Perf. Quant 17 Seg. SSS 17.00 17 Seg. SRS 20.00 17 Seg. SDS 1.00 Stress Defect Extent (% LAD) 61.90 Rest Defect Extent (% LAD) 62.50 Rev. Defect Extent (% LAD) 7.50 Stress Defect Extent (% LCX) 28.80 Rest Defect Extent (% LCX) 23.80 Rev. Defect Extent (% LCX) 12.50 Stress Defect Extent (% RCA) 0.00 Rest Defect Extent (% RCA) 14.40 Rev. Defect Extent (% RCA) 0.00 Stress Defect Extent (% J CARLOS) 38.50 Rest Defect Extent (% J CARLOS) 44.10 Rev. Defect Extent (% J CARLOS) 5.40 Conclusion 1. No EKG evidence of stress-induced ischemia. 2. Nuclear imaging shows previous infarct in the anterior apical region in the inferior wall. Possible mild justus-infarct ischemia is present. 3. Severely decreased LV function with an ejection fraction of 23%. There is diffuse hypokinesis somewhat more prominent in the anterior apical region. 4. Moderate risk Lexiscan nuclear stress test consistent with previous infarcts and decreased ejection fraction Signed by : Yann Curiel MD Electronically Approved : 11/23/2019 16:39:07 DICTATED and SIGNED BY: YNAN CURIEL MD DATE: 11/23/19 1109 XR CHEST 1V INDICATION: Reason: SOA / Spl. Instructions: / History: . COMPARISON STUDY: 10/06/2019. FINDINGS: Left pectoral pacemaker. Lungs: Normal lung volume. Patchy left lung opacities. The tracheobronchial tree and hilar structures are normal. Pleura: No pleural effusion or pneumothorax. Heart and Mediastinum: Cardiomegaly. The great vessels of the thorax are normal. IMPRESSION: Patchy left lung opacities concerning for an infectious/inflammatory process. Electronically signed by: Santos Quevedo MD (03/02/2020 9:09 AM) [id number] DICTATED and SIGNED BY: SANTOS QUEVEDO MD DATE: 03/02/20 [id number] VTE Prophylaxis Ordered VTE Prophylaxis Devices: Yes VTE Pharmacological Prophylaxi: Yes Assessment/Plan Assessment/Plan IMPRESSION: Acute on chronic CHF with ischemic cardiomyopathy Patchy left lung opacities concerning for an infectious/inflammatory process. Severely decreased LV function with an ejection fraction of 23%. diffuse hypokinesis somewhat more prominent in the anterior apical region. RECENT Nuclear stress Moderate risk Lexiscan nuclear stress test consistent with previous infarcts and decreased ejection fraction Shortness of breath - with CXR more consistent with CHF exacerbation, no other COVID sx or contacts and recent negative testing, this will be treated as CHF exacerbation. Follow K and mag Ischemic cardiomyopathy - with biventricular block, wide QRS, reduced EF 25%, now s/p AICD placement on 02/03. Cardiology to see. Systolic CHF - EF 25-30% seems decompensated. Advised ETOH reduction and fluid restriction, daily weights. Cardiology consulted. IV lasix ordered. RBBB - stable HLD - on statin HTN - Tobacco abuse - counseled on cessation and high risk recurrent CAD CAD s/p YULIANA - cardiology to see. On BB, statin, ASA, and plavix therapy plan ADMIT PUI Consult cardiology iv lasix cvc bed Justifications for Admission Other Justification CHEPE PHILLIPS MD Mar 02, 2020 10:52
[2020-03-02] MEDS ORDERED: NITROGLYCERIN SUBLINGUAL 0.4 MG BOTTLE OF 25. SL PRN (13:45)
[2020-03-02] MEDS ORDERED: 0.9 % SODIUM CHLORIDE 10 ML DISP.SYRIN. IV PRN (13:45)
[2020-03-02] MEDS ORDERED: LORazepam 0.5 MG TABLET PO PRN (13:45)
[2020-03-02] MEDS ORDERED: DOCUSATE SODIUM 100 MG CAPSULE. PO PRN (13:45)
[2020-03-02] MEDS ORDERED: ALBUTEROL SULFATE 2.5 MG/3 ML NEBU. NEB PRN (13:45)
[2020-03-02] MEDS ORDERED: ACETAMINOPHEN 325 MG TABLET. PO PRN (13:45)
[2020-03-02] MEDS ORDERED: guaiFENesin ORAL 200 MG/10 ML LIQUID. PO PRN (13:45)
[2020-03-02] MEDS ORDERED: ONDANSETRON PF 4 MG/2 ML VIAL. IV PRN (13:45)
[2020-03-02] MEDS ORDERED: SODIUM PHOSPHATES 19/7GM 133 ML ENEMA. PR PRN (13:45)
[2020-03-02] MEDS: FUROSEMIDE 40 MG/4 ML VIAL. IVP SCH (15:22)
[2020-03-02] MEDS: ENOXAPARIN 40 MG/0.4 ML SYRINGE. SQ SCH (15:23)
[2020-03-02] MEDS: LEVOTHYROXINE 100 MCG TABLET PO SCH (15:23)
[2020-03-02] MEDS: POTASSIUM CHLORIDE 10 MEQ TABLET.ER. PO SCH (15:24)
[2020-03-02] MEDS: SACUBITRIL/VALSARTAN 49/51MG TABLET. PO SCH ×2 (15:24→20:36)
[2020-03-02] MEDS: ASPIRIN ENTERIC COATED 81 MG TABLET.DR. PO SCH (15:25)
[2020-03-02] MEDS: CLOPIDOGREL BISULFATE 75 MG TABLET PO SCH (15:25)
[2020-03-02] MEDS: AMIODARONE HCL 200 MG TABLET. PO SCH ×2 (15:25→20:36)
[2020-03-02] MEDS: METOPROLOL SUCC 24HR ER 25 MG TAB.ER.24H. PO SCH (15:26)
--- NOTE | 2020-03-02 15:50 | NUR ---
patient brought to room 211. patient SOA with activity but otherwise stable and no other complaints. tele monitor applied. call light within reach.
[2020-03-02 17:20] VITALS: BP 99/73
[2020-03-02 19:45] VITALS: BP 97/68
[2020-03-02] MEDS: ATORVASTATIN CALCIUM 40 MG TABLET. PO SCH (20:35)
[2020-03-02 23:25] VITALS: BP 102/71
[2020-03-03] VITALS (7 sets, daily range): BP systolic 87–110; BP diastolic 58–78
[2020-03-03 05:19] LABS: CALCIUM 8.6 mg/dL (8.5-10.1); CREATININE 1.5 mg/dL (0.7-1.3); POTASSIUM 3.3 mmol/L (3.5-5.1)
[2020-03-03] MEDS ORDERED: POTASSIUM CHLORIDE 10 MEQ TABLET.ER. PO ONE (07:45)
[2020-03-03] MEDS: LEVOTHYROXINE 100 MCG TABLET PO SCH (08:12)
[2020-03-03] MEDS: FUROSEMIDE 40 MG/4 ML VIAL. IVP SCH (09:08)
[2020-03-03] MEDS: POTASSIUM CHLORIDE 10 MEQ TABLET.ER. PO SCH (09:09)
[2020-03-03] MEDS: AMIODARONE HCL 200 MG TABLET. PO SCH ×2 (09:10→21:57)
[2020-03-03] MEDS: METOPROLOL SUCC 24HR ER 25 MG TAB.ER.24H. PO SCH (09:10)
[2020-03-03] MEDS: SACUBITRIL/VALSARTAN 49/51MG TABLET. PO SCH ×2 (09:10→21:57)
[2020-03-03] MEDS: CLOPIDOGREL BISULFATE 75 MG TABLET PO SCH (09:10)
[2020-03-03] MEDS: ASPIRIN ENTERIC COATED 81 MG TABLET.DR. PO SCH (09:11)
--- NOTE | 2020-03-03 11:11 | PDOC ---
PROGRESS NOTES Date of Service: DATE: 03/03/20 TIME: 11:11 Chief Complaint Chief Complaint VTE Prophylaxis Ordered VTE Prophylaxis Devices: Yes VTE Pharmacological Prophylaxi: Yes Assessment/Plan Assessment/Plan IMPRESSION: Acute on chronic CHF with ischemic cardiomyopathy Patchy left lung opacities concerning for an infectious/inflammatory process. Severely decreased LV function with an ejection fraction of 23%. diffuse hypokinesis somewhat more prominent in the anterior apical region. RECENT Nuclear stress Moderate risk Lexiscan nuclear stress test consistent with previous infarcts and decreased ejection fraction Shortness of breath - with CXR more consistent with CHF exacerbation, no other COVID sx or contacts and recent negative testing, this will be treated as CHF exacerbation. Follow K and mag Ischemic cardiomyopathy - with biventricular block, wide QRS, reduced EF 25%, now s/p AICD placement on 02/03. Cardiology to see. Systolic CHF - EF 25-30% seems decompensated. Advised ETOH reduction and fluid restriction, daily weights. Cardiology consulted. IV lasix ordered. RBBB - stable HLD - on statin HTN - Tobacco abuse - counseled on cessation and high risk recurrent CAD CAD s/p YULIANA - cardiology to see. On BB, statin, ASA, and plavix therapy HYPOKALEMIA on replacement rx plan ADMIT PUI Consult cardiology iv lasix cvc bed replace lytes cardiology desires d/c tomorrow 1-04 if stable D/W RN Justifications for Admission Justifications for Admission Other Justification History of Present Illness History of Present Illness Identification/Chief Complaint Chief Complaint SEEN IN ER WITH ACUTE ON CHRONIC CHF64 year old male who presented to ER for evaluation of trouble breathing with exertion for 1 week. His symptoms got worse the last 3 days. Patient had trouble sleeping last 3 days as well. Patient denies any fever. Patient had nonproductive cough for couple days. Patient denies any chest pain. denies any chills, no known exposure to COVID-19 infection, BUT HAS HAD GRANCHILDREN IN HOME . Patient has history of CHF, coronary artery disease, AICD. He was on lasix before but recently told not to take lasix Past Medical History Past Medical History Past Medical History Past Medical History: A-Fib, CAD, UT Additional Past Medical Histor: TWO CARDIAC STENTS Past Surgical History: Pacemaker, Other Additional Past Surgical Histo: Stent x1 placement, ICD Smoking Status: Current Some Day Smoker Alcohol Use: Occasionally Drug Use: None FHX COPD Cardiovascular: CAD, CHF, HTN, UT, Hyperlipidemia, Other Pulmonary: No pertinent hx Musculoskeletal: Osteoarthritis Endocrine: Hypothyroidism Past Surgical History Past Surgical History: Pacemaker, Other Family History Family History: Diabetes, Heart Disease, Stroke Social History Smoke: No ALCOHOL: rare Drugs: None Current Problem List Problem List Problems Medical Problems: (1) Acute exacerbation of CHF (congestive heart failure) Status: Acute Vitals Vitals Vital Signs Date Time Temp Pulse Resp B/P (MAP) Pulse Ox O2 Delivery O2 Flow Rate FiO2 03/03/20 09:10 67 99/74 03/03/20 07:00 98.1 16 95 Room Air 98.1 Physical Exam Physical Exam Constitutional: Well developed, well nourished, no acute distress, non-toxic appearance. [] HENT: Normocephalic, atraumatic, bilateral external ears normal, oropharynx moist, no oral exudates, nose normal. [] Eyes: PERRLA, EOMI, conjunctiva normal, no discharge. [] Neck: Normal range of motion, no tenderness, supple, no stridor. [] Cardiovascular:Heart rate regular rhythm, no murmur [] Lungs & Thorax: Bilateral breath sounds clear to auscultation [] Abdomen: Bowel sounds normal, soft, no tenderness, no masses, no pulsatile kim s. [] Skin: Warm, dry, no erythema, no rash. [] Back: No tenderness, no CVA tenderness. [] Extremities: No tenderness, no cyanosis, no clubbing, ROM intact, no edema. [] Neurologic: Alert and oriented X 3, normal motor function, normal sensory function, no focal deficits noted. [] Psychologic: Affect normal, judgment normal, mood normal. [] General: Alert, Oriented X3, Cooperative Lungs: Clear to auscultation, Normal air movement Breasts: Not examined Abdomen: Soft Rectal Exam: not examined PELVIC: Examination not indicated Extremities: No cyanosis Neuro: Normal gait, Normal speech, Cranial nerves 3-12 NL Psych/Mental Status: Mental status NL, Mood NL General: Alert, Oriented X3, Cooperative, No acute distress Heart: Regular rate Lungs: Clear Abdomen: Soft Extremities: No cyanosis Labs LABS Images Images Aortic Valve AoV Peak Jordan. 103.8cm/s AoV VTI 19.8cm AO Peak GR. 4.3mmHg LVOT Peak Jordan. 81.9cm/s AO Mean GR. 3mmHg SIVAN (VMAX) 3.61cm2 SIVAN (VTI) 3.80cm2 AI P 1/2 Time 1066ms Mitral Valve MV E Velocity 58.3cm/s MV DECEL TIME 211ms MV A Velocity 106.3cm/s E/A Ratio 0.5 Tricuspid Valve TR P. Velocity 260cm/s RAP ESTIMATE 3mmHg TR Peak Gr. 27mmHg RVSP 30mmHg Pulmonary Vein S1 Velocity 65.3cm/s D2 Velocity 36.8cm/s LEFT VENTRICLE The Left Ventricle is moderately dilated. There is normal left ventricular wall thickness. Left ventricle systolic function is severely impaired. The Ejection Fraction is estimated at 20%. There is severe global hypokinesis of the left ventricle. Transmitral Doppler flow pattern is Grade I-abnormal relaxation pattern. RIGHT VENTRICLE The right ventricle is normal size. The right ventricular systolic function is normal. There are probable device leads in the right ventricle and atrium. ATRIA The left atrium is mildly dilated. The right atrium size is normal. The interatrial septum is intact with no evidence for an atrial septal defect or patent foramen ovale as noted on 2-D or Doppler imaging. AORTIC VALVE The aortic valve is mildly thickened but opens well. Doppler and Color Flow revealed trace aortic regurgitation. There is no significant aortic valvular stenosis. MITRAL VALVE The mitral valve is calcified but opens well. Mitral annular calcification is mild. There is no evidence of mitral valve prolapse. There is no mitral valve stenosis. Doppler and Color-flow revealed mild to moderate mitral regurgitation. TRICUSPID VALVE The tricuspid valve is normal in structure and function. Doppler and Color Flow revealed mild tricuspid regurgitation. The PA pressure was estimated at 30 mmHg. There is no tricuspid valve stenosis. PULMONIC VALVE The pulmonic valve is not well visualized. Doppler and Color Flow revealed trace pulmonic valvular regurgitation. There is no pulmonic valvular stenosis. GREAT VESSELS The aortic root is normal in size. The ascending aorta is not well seen. The IVC is normal in size and collapses >50% with inspiration. PERICARDIAL EFFUSION There is no evidence of significant pericardial effusion. Critical Notification Critical Value: No <Conclusion> The Left Ventricle is moderately dilated. Left ventricle systolic function is severely impaired. The Ejection Fraction is estimated at 20%. There is severe global hypokinesis of the left ventricle. Doppler and Color Flow revealed trace aortic regurgitation. There is no significant aortic valvular stenosis. Doppler and Color-flow revealed mild to moderate mitral regurgitation. Doppler and Color Flow revealed mild tricuspid regurgitation. The PA pressure was estimated at 30 mmHg. Signed by : Yann Curiel MD Electronically Approved : 11/23/2019 18:32:42 DICTATED and SIGNED BY: YANN CURIEL MD DATE: 11/23/19 1015 Radiopharm. Tc99m Sestamibi Tc99m Sestamibi Dose 12mCi 33mCi Duration 13.5min. 13.5min. Img Date 11/23/2019 11/23/2019 Inj-Img Time 45min. 60min. Rest Admin Site: IV - Right Hand Wheel And Axle Inspector: Isaiah Ludwig RT (R)(N) Stress Admin Site: IV - Right Hand Wheel And Axle Inspector: CHRIS Perry, ARRT (R)(N) STRESS DATA End Diast. Vol. 288.0ml LVEDV index BSA 141.0ml End Syst. Vol. 218.0ml LVESV index BSA 107.0ml Myocardial Mass 244.0g Eject. Fraction 24.0% Stress Scores Regional WT 3.00 Summed WT 43.00 Regional WM 1.00 Summed WM 30.00 LV Perfusion The stress images show a moderate defect in the anterior apical region and a mild defect in the inferior wall. The rest images show a moderate defect in the anterior apical region mild defect in the inferior wall. Nuclear imaging is consistent with a previous infarct in the anterior apical region and a previous infarct in the inferior wall. Both regions may have mild justus-infarct ischemia. Wall Motion Left ventricular systolic function is severely decreased with an ejection fraction of 23%. TID is 0.99. There is global hypokinesis somewhat more prominent in the anterior apical region LV Perf. Quant 17 Seg. SSS 17.00 17 Seg. SRS 20.00 17 Seg. SDS 1.00 Stress Defect Extent (% LAD) 61.90 Rest Defect Extent (% LAD) 62.50 Rev. Defect Extent (% LAD) 7.50 Stress Defect Extent (% LCX) 28.80 Rest Defect Extent (% LCX) 23.80 Rev. Defect Extent (% LCX) 12.50 Stress Defect Extent (% RCA) 0.00 Rest Defect Extent (% RCA) 14.40 Rev. Defect Extent (% RCA) 0.00 Stress Defect Extent (% J CARLOS) 38.50 Rest Defect Extent (% J CARLOS) 44.10 Rev. Defect Extent (% J CARLOS) 5.40 Conclusion 1. No EKG evidence of stress-induced ischemia. 2. Nuclear imaging shows previous infarct in the anterior apical region in the inferior wall. Possible mild justus-infarct ischemia is present. 3. Severely decreased LV function with an ejection fraction of 23%. There is diffuse hypokinesis somewhat more prominent in the anterior apical region. 4. Moderate risk Lexiscan nuclear stress test consistent with previous infarcts and decreased ejection fraction Signed by : Yann Curiel MD Electronically Approved : 11/23/2019 16:39:07 DICTATED and SIGNED BY: YANN CURIEL MD DATE: 11/23/19 1109 XR CHEST 1V INDICATION: Reason: SOA / Spl. Instructions: / History: . COMPARISON STUDY: 10/06/2019. FINDINGS: Left pectoral pacemaker. Lungs: Normal lung volume. Patchy left lung opacities. The tracheobronchial tree and hilar structures are normal. Pleura: No pleural effusion or pneumothorax. Heart and Mediastinum: Cardiomegaly. The great vessels of the thorax are normal. IMPRESSION: Patchy left lung opacities concerning for an infectious/inflammatory process. Electronically signed by: Rick Quevedo MD (03/02/2020 9:09 AM) [id number] Laboratory Tests Test 03/02/20 12:50 03/03/20 04:00 Troponin I Quantitative 0.084 ng/mL (0.000-0.055) Sodium Level 141 mmol/L (136-145) Potassium Level 3.3 mmol/L (3.5-5.1) Chloride Level 106 mmol/L (98-107) Carbon Dioxide Level 22 mmol/L (21-32) Anion Gap 13 (6-14) Blood Urea Nitrogen 16 mg/dL (8-26) Creatinine 1.5 mg/dL (0.7-1.3) Estimated GFR (Cockcroft-Gault) 57.0 Glucose Level 101 mg/dL (70-99) Calcium Level 8.6 mg/dL (8.5-10.1) Assessment and Plan Assessmemt and Plan Problems Medical Problems: (1) Acute exacerbation of CHF (congestive heart failure) Status: Acute Comment Review of Relevant I have reviewed the following items cj (where applicable) has been applied. Labs Laboratory Tests Test 03/02/20 09:09 03/02/20 09:12 03/02/20 12:50 03/03/20 04:00 Coronavirus (PCR) Not detected (Not Detected) White Blood Count 4.0 x10^3/uL (4.0-11.0) Red Blood Count 3.74 x10^6/uL (4.30-5.70) Hemoglobin 12.1 g/dL (13.0-17.5) Hematocrit 36.0 % (39.0-53.0) Mean Corpuscular Volume 96 fL (79-100) Mean Corpuscular Hemoglobin 32 pg (25-35) Mean Corpuscular Hemoglobin Concent 34 g/dL (31-37) Red Cell Distribution Width 14.7 % (11.5-14.5) Platelet Count 131 x10^3/uL (140-400) Neutrophils (%) (Auto) 66 % (31-73) Lymphocytes (%) (Auto) 25 % (24-48) Monocytes (%) (Auto) 7 % (0-9) Eosinophils (%) (Auto) 2 % (0-3) Basophils (%) (Auto) 1 % (0-3) Neutrophils # (Auto) 2.7 x10^3/uL (1.8-7.7) Lymphocytes # (Auto) 1.0 x10^3/uL (1.0-4.8) Monocytes # (Auto) 0.3 x10^3/uL (0.0-1.1) Eosinophils # (Auto) 0.1 x10^3/uL (0.0-0.7) Basophils # (Auto) 0.0 x10^3/uL (0.0-0.2) Sodium Level 143 mmol/L (136-145) 141 mmol/L (136-145) Potassium Level 3.8 mmol/L (3.5-5.1) 3.3 mmol/L (3.5-5.1) Chloride Level 107 mmol/L (98-107) 106 mmol/L (98-107) Carbon Dioxide Level 22 mmol/L (21-32) 22 mmol/L (21-32) Anion Gap 14 (6-14) 13 (6-14) Blood Urea Nitrogen 12 mg/dL (8-26) 16 mg/dL (8-26) Creatinine 1.4 mg/dL (0.7-1.3) 1.5 mg/dL (0.7-1.3) Estimated GFR (Cockcroft-Gault) 61.7 57.0 BUN/Creatinine Ratio 9 (6-20) Glucose Level 105 mg/dL (70-99) 101 mg/dL (70-99) Calcium Level 9.1 mg/dL (8.5-10.1) 8.6 mg/dL (8.5-10.1) Magnesium Level 2.1 mg/dL (1.8-2.4) Total Bilirubin 0.9 mg/dL (0.2-1.0) Aspartate Amino Transf (AST/SGOT) 17 U/L (15-37) Alanine Aminotransferase (ALT/SGPT) 20 U/L (16-63) Alkaline Phosphatase 69 U/L (46-116) Troponin I Quantitative 0.084 ng/mL (0.000-0.055) 0.084 ng/mL (0.000-0.055) XG-Tlq-A-Type Natriuretic Peptide 7662 pg/mL (0-124) Total Protein 7.4 g/dL (6.4-8.2) Albumin 3.6 g/dL (3.4-5.0) Albumin/Globulin Ratio 0.9 (1.0-1.7) Laboratory Tests Test 03/02/20 12:50 03/03/20 04:00 Troponin I Quantitative 0.084 ng/mL (0.000-0.055) Sodium Level 141 mmol/L (136-145) Potassium Level 3.3 mmol/L (3.5-5.1) Chloride Level 106 mmol/L (98-107) Carbon Dioxide Level 22 mmol/L (21-32) Anion Gap 13 (6-14) Blood Urea Nitrogen 16 mg/dL (8-26) Creatinine 1.5 mg/dL (0.7-1.3) Estimated GFR (Cockcroft-Gault) 57.0 Glucose Level 101 mg/dL (70-99) Calcium Level 8.6 mg/dL (8.5-10.1) Medications Current Medications Amiodarone HCl (Cordarone) 200 mg BID PO Last administered on 03/03/20 09:10; Start 03/02/20 at 14:00 Aspirin (Ecotrin) 81 mg DAILYWBKFT PO Last administered on 03/03/20at 09:11; Start 03/02/20 at 14:00 Atorvastatin Calcium (Lipitor) 40 mg QHS PO Last administered on 03/02/20at 20:35; Start 03/02/20 at 21:00 Clopidogrel Bisulfate (Plavix) 75 mg DAILY PO Last administered on 03/03/20 09:10; Start 03/02/20 at 14:00 Levothyroxine Sodium (Synthroid) 100 mcg DAILYAC PO Last administered on 03/03/20 08:12; Start 03/02/20 at 14:00 Metoprolol Succinate (Toprol Xl) 25 mg DAILY PO Last administered on 03/03/20at 09:10; Start 03/02/20 at 14:00 Nitroglycerin (Nitrostat) 0.4 mg PRN Q5MIN PRN SL CHEST PAIN; Start 03/02/20 at 13:45 Potassium Chloride (Klor-Con) 10 meq DAILY PO Last administered on 03/03/20 09:09; Start 03/02/20 at 14:00 Sacubitril/ Valsartan (Entresto 49 Mg-51 Mg) 1 tab BID PO Last administered on 03/03/20 09:10; Start 03/02/20 at 14:00 Furosemide (Lasix) 40 mg DAILY IVP Last administered on 03/03/20 09:08; Start 03/02/20 at 14:00 Sodium Chloride (Normal Saline Flush) 3 ml QSHIFT PRN IV AFTER MEDS AND BLOOD DRAWS; Start 03/02/20 at 13:45 Ondansetron HCl (Zofran) 4 mg PRN Q4HRS PRN IV NAUSEA/VOMITING; Start 03/02/20 at 13:45 Acetaminophen (Tylenol) 650 mg PRN Q4HRS PRN PO TEMP OVER 100.4F OR MILD PAIN; Start 03/02/20 at 13:45 Sodium Monofluorophosphate (Fleet Adult) 133 ml PRN DAILY PRN VA CONSTIPATION; Start 03/02/20 at 13:45 Docusate Sodium (Colace) 100 mg PRN BID PRN PO HARD STOOLS; Start 03/02/20 at 13:45 Albuterol Sulfate (Ventolin Neb Soln) 2.5 mg PRN Q4HRS PRN NEB SHORTNESS OF BREATH; Start 03/02/20 at 13:45 Guaifenesin (Robitussin) 200 mg PRN Q4HRS PRN PO COUGH; Start 03/02/20 at 13:45 Lorazepam (Ativan) 0.5 mg PRN Q4HRS PRN PO ANXIETY / AGITATION; Start 03/02/20 at 13:45 Enoxaparin Sodium (Lovenox 40mg Syringe) 40 mg Q24H SQ Last administered on 03/02/20at 15:23; Start 03/02/20 at 14:00 Potassium Chloride (Klor-Con) 30 meq 1X ONCE PO Last administered on 03/03/20at 09:09; Start 03/03/20 at 07:45; Stop 03/03/20 at 07:53; Status DC Active Scripts Active Toprol XL (Metoprolol Succinate) 50 Mg Tab.er.24h 25 Mg PO DAILY 30 Days Klor-Con 10 (Potassium Chloride) 10 Meq Tablet.er 1 Tab PO DAILY 30 Days Lasix (Furosemide) 40 Mg Tablet 1 Tab PO DAILY 30 Days Nitrostat (Nitroglycerin) 0.4 Mg Tab.subl 0.4 Mg SL PRN Q5MIN PRN 30 Days PLEASE TAKE NEEDED FOR CHEST PAIN, REPEAT EVERY 5 MIN X 3 PLEASE CALL MD IF PAIN NOT RESOLVED AFTER THIRD DOSE. Aspirin Ec (Aspirin) 81 Mg Tablet. 81 Mg PO DAILYWBKFT Atorvastatin Calcium 20 Mg Tablet 40 Mg PO QHS Reported Entresto 49 mg-51 mg Tablet (Sacubitril/Valsartan) 1 Each Tablet 1 Each PO DAILY Clopidogrel (Clopidogrel Bisulfate) 75 Mg Tablet 75 Mg PO DAILY Amiodarone Hcl 200 Mg Tablet 200 Mg PO BID Levothyroxine Sodium 100 Mcg Tablet 100 Mcg PO DAILYAC Vitals/I & O Vital Sign - Last 24 Hours 03/02/20 03/02/20 03/02/20 03/02/20 11:39 12:09 12:39 13:39 Pulse 69 69 70 66 B/P (MAP) 124/81 (95) 118/81 (93) 118/82 (94) 121/75 (90) Pulse Ox 99 99 97 97 O2 Delivery Room Air Room Air Room Air Room Air 03/02/20 03/02/20 03/02/20 03/02/20 15:24 15:25 15:26 16:35 Pulse 74 76 77 B/P (MAP) 107/72 107/72 107/72 Pulse Ox 97 O2 Delivery Room Air 03/02/20 03/02/20 03/02/20 03/02/20 16:44 17:20 19:45 20:00 Temp 94.5 97.8 94.5 97.8 Pulse 73 74 Resp 20 20 B/P (MAP) 99/73 (82) 97/68 (78) Pulse Ox 96 92 O2 Delivery Room Air Room Air Room Air Room Air 03/02/20 03/02/20 03/02/20 03/03/20 20:36 20:36 23:25 03:30 Temp 98.0 97.9 98.0 97.9 Pulse 73 73 69 67 Resp 20 20 B/P (MAP) 99/73 99/73 102/71 (81) 99/74 (82) Pulse Ox 94 94 O2 Delivery Room Air Room Air 03/03/20 03/03/20 03/03/20 03/03/20 07:00 09:10 09:10 09:10 Temp 98.1 98.1 Pulse 68 67 67 67 Resp 16 B/P (MAP) 110/78 (89) 99/74 99/74 99/74 Pulse Ox 95 O2 Delivery Room Air Intake and Output 03/02/20 03/02/20 03/03/20 15:00 23:00 07:00 Intake Total 480 ml 1050 ml Output Total 1500 ml 850 ml Balance -1020 ml 200 ml Justicifation of Admission Dx: Justifications for Admission: Justification of Admission Dx: Yes UT: Acute NSTEMI CHEPE PHILLIPS MD Mar 03, 2020 11:11
[2020-03-03] MEDS ORDERED: POTASSIUM BICARB 20 MEQ EFFERVESCENT TABLET. PO SCH (11:15)
[2020-03-03] MEDS ORDERED: POTASSIUM BICARB 20 MEQ EFFERVESCENT TABLET. FT ONE (11:30)
[2020-03-03] MEDS ORDERED: POTASSIUM BICARB 10 MEQ EFFERVESCENT TABLET. FT ONE (11:30)
[2020-03-03] MEDS ORDERED: ELECTROLYTE (NON-ICU) PROTOCOL. MC PRN (11:45)
[2020-03-03] MEDS ORDERED: MAGNESIUM OXIDE 400 MG TABLET PO SCH (12:00)
[2020-03-03] MEDS: MAGNESIUM SULFATE 2GM 50 ML IV SCH (12:00)
[2020-03-03] MEDS: ENOXAPARIN 40 MG/0.4 ML SYRINGE. SQ SCH (14:29)
--- NOTE | 2020-03-03 16:03 | EKG ---
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
--- NOTE | 2020-03-03 17:14 | PDOC2 ---
CONSULT Date of Consult Date of Consult DATE: 03/03/20 TIME: 17:09 Reason for Consult Reason for Consult: Acute heart failure Referring Physician Referring Physician: Dr. Reese Identification/Chief Complaint Chief Complaint Shortness of breath Source Source: Chart review, Patient History of Present Illness Reason for Visit: The patient is a 64-year-old male who presented to the emergency room last evening with 1 week of increasing shortness of breath. Patient over the last 2 days has been unable to lay down to sleep at night due to shortness of breath. He has a history of an ischemic cardiomyopathy as well as implantable defibrillator. Chest x-ray showed a patchy left lung opacities. His EKG showed no acute ischemic changes. Troponin was not significantly elevated at 0.084. BNP however was elevated at 7662. The patient was treated with Lasix and has been in and diuresed. He is feeling much better today. His shortness of breath has significantly improved. He is having no chest pain or lightheadedness. Past Medical History Cardiovascular: CAD, CHF, HTN, NH, Hyperlipidemia, Other (AICD) Pulmonary: No pertinent hx Musculoskeletal: Osteoarthritis Endocrine: Hypothyroidism Past Surgical History Past Surgical History: Other (Coronary stents, AICD) Family History Family History: Diabetes, Heart Disease, Stroke Social History No ALCOHOL: rare Drugs: None Current Problem List Problem List Problems Medical Problems: (1) Acute exacerbation of CHF (congestive heart failure) Status: Acute Current Medications Current Medications Current Medications Amiodarone HCl (Cordarone) 200 mg BID PO Last administered on 03/03/20at 09:10; Start 03/02/20 at 14:00 Aspirin (Ecotrin) 81 mg DAILYWBKFT PO Last administered on 03/03/20at 09:11; Start 03/02/20 at 14:00 Atorvastatin Calcium (Lipitor) 40 mg QHS PO Last administered on 03/02/20at 20:35; Start 03/02/20 at 21:00 Clopidogrel Bisulfate (Plavix) 75 mg DAILY PO Last administered on 03/03/20at 0 9:10; Start 03/02/20 at 14:00 Levothyroxine Sodium (Synthroid) 100 mcg DAILYAC PO Last administered on 03/03/20at 08:12; Start 03/02/20 at 14:00 Metoprolol Succinate (Toprol Xl) 25 mg DAILY PO Last administered on 03/03/20at 09:10; Start 03/02/20 at 14:00 Nitroglycerin (Nitrostat) 0.4 mg PRN Q5MIN PRN SL CHEST PAIN; Start 03/02/20 at 13:45 Potassium Chloride (Klor-Con) 10 meq DAILY PO Last administered on 03/03/20at 09:09; Start 03/02/20 at 14:00 Sacubitril/ Valsartan (Entresto 49 Mg-51 Mg) 1 tab BID PO Last administered on 03/03/20at 09:10; Start 03/02/20 at 14:00 Furosemide (Lasix) 40 mg DAILY IVP Last administered on 03/03/20at 09:08; Start 03/02/20 at 14:00 Sodium Chloride (Normal Saline Flush) 3 ml QSHIFT PRN IV AFTER MEDS AND BLOOD DRAWS; Start 03/02/20 at 13:45 Ondansetron HCl (Zofran) 4 mg PRN Q4HRS PRN IV NAUSEA/VOMITING; Start 03/02/20 at 13:45 Acetaminophen (Tylenol) 650 mg PRN Q4HRS PRN PO TEMP OVER 100.4F OR MILD PAIN; Start 03/02/20 at 13:45 Sodium Monofluorophosphate (Fleet Adult) 133 ml PRN DAILY PRN MI CONSTIPATION; Start 03/02/20 at 13:45 Docusate Sodium (Colace) 100 mg PRN BID PRN PO HARD STOOLS; Start 03/02/20 at 13:45 Albuterol Sulfate (Ventolin Neb Soln) 2.5 mg PRN Q4HRS PRN NEB SHORTNESS OF BREATH; Start 03/02/20 at 13:45 Guaifenesin (Robitussin) 200 mg PRN Q4HRS PRN PO COUGH; Start 03/02/20 at 13:45 Lorazepam (Ativan) 0.5 mg PRN Q4HRS PRN PO ANXIETY / AGITATION; Start 03/02/20 at 13:45 Enoxaparin Sodium (Lovenox 40mg Syringe) 40 mg Q24H SQ Last administered on 03/03/20at 14:29; Start 03/02/20 at 14:00 Potassium Chloride (Klor-Con) 30 meq 1X ONCE PO Last administered on 1/3/21at 09:09; Start 03/03/20 at 07:45; Stop 03/03/20 at 07:53; Status DC Potassium Bicarbonate (Potassium Effervescent Tablet) 40 meq 1X ONCE FT ; Start 03/03/20 at 11:30; Stop 03/03/20 at 11:31; Status Cancel Potassium Bicarbonate (Potassium Effervescent Tablet) 40 meq 1X ONCE FT ; Start 03/03/20 at 11:30; Stop 03/03/20 at 11:33; Status DC Magnesium Oxide (Magnesium Oxide) 400 mg BID PO ; Start 03/03/20 at 12:00; Stop 03/03/20 at 11:34; Status DC Magnesium Sulfate 50 ml @ 25 mls/hr Q24H IV ; Start 03/03/20 at 12:00; Stop 03/05/20 at 13:59 Potassium Phos/ Sodium Phos (Phos-Nak) 1 pkt BID PO ; Start 03/03/20 at 21:00; Stop 03/04/20 at 09:01; Status UNV Potassium Bicarbonate (Potassium Effervescent Tablet) 40 meq Q4H PO ; Start 03/03/20 at 11:15; Stop 03/03/20 at 15:16; Status UNV Info (Non-Icu Electrolyte Protocol) 1 ea CONT PRN PRN MC SEE COMMENTS; Start 03/03/20 at 11:45 Active Scripts Active Toprol XL (Metoprolol Succinate) 50 Mg Tab.er.24h 25 Mg PO DAILY 30 Days Klor-Con 10 (Potassium Chloride) 10 Meq Tablet.er 1 Tab PO DAILY 30 Days Lasix (Furosemide) 40 Mg Tablet 1 Tab PO DAILY 30 Days Nitrostat (Nitroglycerin) 0.4 Mg Tab.subl 0.4 Mg SL PRN Q5MIN PRN 30 Days PLEASE TAKE NEEDED FOR CHEST PAIN, REPEAT EVERY 5 MIN X 3 PLEASE CALL MD IF PAIN NOT RESOLVED AFTER THIRD DOSE. Aspirin Ec (Aspirin) 81 Mg Tablet.dr 81 Mg PO DAILYWBKFT Atorvastatin Calcium 20 Mg Tablet 40 Mg PO QHS Reported Entresto 49 mg-51 mg Tablet (Sacubitril/Valsartan) 1 Each Tablet 1 Each PO DAILY Clopidogrel (Clopidogrel Bisulfate) 75 Mg Tablet 75 Mg PO DAILY Amiodarone Hcl 200 Mg Tablet 200 Mg PO BID Levothyroxine Sodium 100 Mcg Tablet 100 Mcg PO DAILYAC Allergies Allergies: Coded Allergies: ticagrelor (Verified Allergy, Severe, Swelling, 02/03/19) lisinopril (Verified Allergy, Intermediate, facial swelling, 07/16/19) ROS General: YES: Fatigue Respiratory: YES: Shortness of breath, SOB with excertion Physical Exam General: No acute distress HEENT: Atraumatic Lungs: Other (Mildly decreased breath sounds) Heart: Regular rate Abdomen: Normal bowel sounds Vitals VITALS Vital Signs Date Time Temp Pulse Resp B/P (MAP) Pulse Ox O2 Delivery O2 Flow Rate FiO2 03/03/20 15:00 98.0 66 18 92/68 (76) 95 Room Air 98.0 Labs Labs Laboratory Tests Test 03/02/20 09:09 03/02/20 09:12 03/02/20 12:50 03/03/20 04:00 Coronavirus (PCR) Not detected (Not Detected) White Blood Count 4.0 x10^3/uL (4.0-11.0) Red Blood Count 3.74 x10^6/uL (4.30-5.70) Hemoglobin 12.1 g/dL (13.0-17.5) Hematocrit 36.0 % (39.0-53.0) Mean Corpuscular Volume 96 fL (79-100) Mean Corpuscular Hemoglobin 32 pg (25-35) Mean Corpuscular Hemoglobin Concent 34 g/dL (31-37) Red Cell Distribution Width 14.7 % (11.5-14.5) Platelet Count 131 x10^3/uL (140-400) Neutrophils (%) (Auto) 66 % (31-73) Lymphocytes (%) (Auto) 25 % (24-48) Monocytes (%) (Auto) 7 % (0-9) Eosinophils (%) (Auto) 2 % (0-3) Basophils (%) (Auto) 1 % (0-3) Neutrophils # (Auto) 2.7 x10^3/uL (1.8-7.7) Lymphocytes # (Auto) 1.0 x10^3/uL (1.0-4.8) Monocytes # (Auto) 0.3 x10^3/uL (0.0-1.1) Eosinophils # (Auto) 0.1 x10^3/uL (0.0-0.7) Basophils # (Auto) 0.0 x10^3/uL (0.0-0.2) Sodium Level 143 mmol/L (136-145) 141 mmol/L (136-145) Potassium Level 3.8 mmol/L (3.5-5.1) 3.3 mmol/L (3.5-5.1) Chloride Level 107 mmol/L (98-107) 106 mmol/L (98-107) Carbon Dioxide Level 22 mmol/L (21-32) 22 mmol/L (21-32) Anion Gap 14 (6-14) 13 (6-14) Blood Urea Nitrogen 12 mg/dL (8-26) 16 mg/dL (8-26) Creatinine 1.4 mg/dL (0.7-1.3) 1.5 mg/dL (0.7-1.3) Estimated GFR (Cockcroft-Gault) 61.7 57.0 BUN/Creatinine Ratio 9 (6-20) Glucose Level 105 mg/dL (70-99) 101 mg/dL (70-99) Calcium Level 9.1 mg/dL (8.5-10.1) 8.6 mg/dL (8.5-10.1) Magnesium Level 2.1 mg/dL (1.8-2.4) 2.0 mg/dL (1.8-2.4) Total Bilirubin 0.9 mg/dL (0.2-1.0) Aspartate Amino Transf (AST/SGOT) 17 U/L (15-37) Alanine Aminotransferase (ALT/SGPT) 20 U/L (16-63) Alkaline Phosphatase 69 U/L (46-116) Troponin I Quantitative 0.084 ng/mL (0.000-0.055) 0.084 ng/mL (0.000-0.055) ES-Cgr-M-Type Natriuretic Peptide 7662 pg/mL (0-124) Total Protein 7.4 g/dL (6.4-8.2) Albumin 3.6 g/dL (3.4-5.0) Albumin/Globulin Ratio 0.9 (1.0-1.7) Laboratory Tests Test 03/03/20 04:00 Sodium Level 141 mmol/L (136-145) Potassium Level 3.3 mmol/L (3.5-5.1) Chloride Level 106 mmol/L (98-107) Carbon Dioxide Level 22 mmol/L (21-32) Anion Gap 13 (6-14) Blood Urea Nitrogen 16 mg/dL (8-26) Creatinine 1.5 mg/dL (0.7-1.3) Estimated GFR (Cockcroft-Gault) 57.0 Glucose Level 101 mg/dL (70-99) Calcium Level 8.6 mg/dL (8.5-10.1) Magnesium Level 2.0 mg/dL (1.8-2.4) Images Images Checks x-ray with patchy left lung opacities. Assessment/Plan Assessment/Plan 1. Acute on chronic systolic heart failure. Ejection fraction of 20%. Significantly improved with diuresis. We will continue on diuresis and recheck morning lab. 2. Ischemic cardiomyopathy. As noted above an echo on 11/19/2019 showed an ejection fraction of 20%, mild to moderate mitral regurgitation and mild tricuspid regurgitation. Continue treatment as above. 3. Coronary artery disease status post stent placement. No chest pain. No acute EKG changes. No significant elevation in troponin. MPI testing on 11/23/2019 shows no reversible ischemia, previous infarct and ejection fraction of 23%. Continuing present treatment. 4. Probable hyperlipidemia. Will check lab. 5. Hypertension. Controlled. Thank you for allowing us to participate in the care of your patient. YANN LUCERO MD Mar 03, 2020 17:14
[2020-03-03] MEDS ORDERED: POTASSIUM & SODIUM PHOSPHATES PACKET. PO SCH (21:00)
[2020-03-03] MEDS: ATORVASTATIN CALCIUM 40 MG TABLET. PO SCH (21:56)
[2020-03-04 03:50] VITALS: BP 95/59
[2020-03-04 07:00] VITALS: BP 101/70
[2020-03-04] MEDS: ASPIRIN ENTERIC COATED 81 MG TABLET.DR. PO SCH (08:58)
[2020-03-04] MEDS: CLOPIDOGREL BISULFATE 75 MG TABLET PO SCH (08:58)
[2020-03-04] MEDS: POTASSIUM CHLORIDE 10 MEQ TABLET.ER. PO SCH (08:59)
[2020-03-04] MEDS: AMIODARONE HCL 200 MG TABLET. PO SCH (08:59)
[2020-03-04] MEDS: LEVOTHYROXINE 100 MCG TABLET PO SCH (09:00)
[2020-03-04] MEDS: SACUBITRIL/VALSARTAN 49/51MG TABLET. PO SCH (09:00)
[2020-03-04] MEDS: METOPROLOL SUCC 24HR ER 25 MG TAB.ER.24H. PO SCH (09:00)
[2020-03-04] MEDS: FUROSEMIDE 40 MG/4 ML VIAL. IVP SCH (09:02)
[2020-03-04 09:13] LABS: CALCIUM 8.9 mg/dL (8.5-10.1); CREATININE 1.3 mg/dL (0.7-1.3); GFR 67.2; POTASSIUM 3.6 mmol/L (3.5-5.1)
[2020-03-04 11:00] VITALS: BP 92/62
[2020-03-04] MEDS: MAGNESIUM SULFATE 2GM 50 ML IV SCH (12:00)
--- NOTE | 2020-03-04 12:14 | NUR ---
SS following up with discharge planning. SS reviewed pt chart and discussed with pt RN. Pt is from home with spouse and is currently on room air. COVID19 negative. No PT needs. SS will continue to follow for discharge planning.
[2020-03-04] MEDS ORDERED: SPIRONOLACTONE 25 MG TABLET PO ONE (12:15)
--- NOTE | 2020-03-04 12:22 | PDOC ---
CARDIO Progress Notes Date and Time Date of Service 03/04/19 Time of Evaluation 1220 Subjective Subjective: No Chest Pain, No shortness of breath, No Palpitations Vitals Vitals Vital Signs Date Time Temp Pulse Resp B/P (MAP) Pulse Ox O2 Delivery O2 Flow Rate FiO2 03/04/20 11:00 98.8 77 20 92/62 (72) 95 Room Air 98.8 Weight Weight [ ] Input and Output Intake and Output Intake and Output 03/04/20 07:00 Intake Total 1660 ml Output Total 3320 ml Balance -1660 ml Intake Oral 1660 ml Output Urine Total 3320 ml Laboratory Labs Laboratory Tests Test 03/04/20 08:15 Sodium Level 140 mmol/L (136-145) Potassium Level 3.6 mmol/L (3.5-5.1) Chloride Level 105 mmol/L (98-107) Carbon Dioxide Level 23 mmol/L (21-32) Anion Gap 12 (6-14) Blood Urea Nitrogen 13 mg/dL (8-26) Creatinine 1.3 mg/dL (0.7-1.3) Estimated GFR (Cockcroft-Gault) 67.2 Glucose Level 87 mg/dL (70-99) Calcium Level 8.9 mg/dL (8.5-10.1) Magnesium Level 2.0 mg/dL (1.8-2.4) Triglycerides Level 60 mg/dL (0-150) Cholesterol Level 147 mg/dL (0-200) LDL Cholesterol, Calculated 86 mg/dL (0-100) VLDL Cholesterol, Calculated 12 mg/dL (0-40) Non-HDL Cholesterol Calculated 98 mg/dL (0-129) HDL Cholesterol 49 mg/dL (40-60) Cholesterol/HDL Ratio 3.0 Physical Exam HEENT: Neck Supple W Full Motion Chest: Symmetric LUNGS: Clear to Auscultation Heart: RRR (v-paced with underling SR) Abdomen: Soft N/T Extremities: No Edema Neurology: alert, oriented, follow commands Assessment Assessment 1. Acute respiratory failure secondary to a/c CHF 2. Acute on chronic systolic/diastolic HF; likely from not having any home diuretic therapy. Improved with IV diuresis 3. ICM; s/p AICD (Biotronik); LVEF 20% per echo 11/19/19. recent device check with normal function. Thoracic impedance reading is OFF. 0% AF burden 4. CAD; past DC with PCI/YULIANA. No acute EKG changes. No significant elevation in troponin. MPI testing on 11/23/2019 shows no reversible ischemia, previous infarct and ejection fraction of 23%. 5. Hypertension; controlled 6. Hyperlipidemia; statin 7. Mildy elevated troponin: peak 0.084 with h/o chronic elevation. Most probably type II, demand ischemia. CP free. Recommendations HF optimization with Entrestro, Toprol, low-dose Lasic and Aldactone K replacement Recheck K this afternoon; replace as warranted Outpatient monitoring of renal function Discussed 2Gm Na diet, 2000cc FR, and daily weight monitoring. Is to reports > 2-3# weight gain overnight or 5# in 1 week. Secondary prevention measures including ASA/Plavix, statin, and BB Supportive care Okay to discharge from a CV standpoint and f/u in our office with Dr. Carter as scheduled Justicifation of Admission Dx: Justifications for Admission: Justification of Admission Dx: Yes DC: Acute NSTEMI JEYSON BOYLE APRN Mar 04, 2020 12:22
--- NOTE | 2020-03-04 12:24 | PDOC ---
[facility] PROGRESS NOTE Date of Service DOS: DATE: 03/04/20 TIME: 12:22 Chief Complaint Chief Complaint VTE Prophylaxis Ordered VTE Prophylaxis Devices: Yes VTE Pharmacological Prophylaxi: Yes Assessment/Plan Assessment/Plan IMPRESSION: Acute on chronic CHF with ischemic cardiomyopathy Patchy left lung opacities concerning for an infectious/inflammatory process. Severely decreased LV function with an ejection fraction of 23%. diffuse hypokinesis somewhat more prominent in the anterior apical region. RECENT Nuclear stress Moderate risk Lexiscan nuclear stress test consistent with previous infarcts and decreased ejection fraction Shortness of breath - with CXR more consistent with CHF exacerbation, no other COVID sx or contacts and recent negative testing, this will be treated as CHF exacerbation. Follow K and mag Ischemic cardiomyopathy - with biventricular block, wide QRS, reduced EF 25%, now s/p AICD placement on 02/03. Cardiology to see. Systolic CHF - EF 25-30% seems decompensated. Advised ETOH reduction and fluid restriction, daily weights. Cardiology consulted. IV lasix ordered. RBBB - stable HLD - on statin HTN - Tobacco abuse - counseled on cessation and high risk recurrent CAD CAD s/p YULIANA - cardiology to see. On BB, statin, ASA, and plavix therapy HYPOKALEMIA on replacement rx plan ADMIT PUI Consult cardiology iv lasix cvc bed replace lytes cardiology desires d/c tomorrow 1-04 if stable D/W RN Justifications for Admission Justifications for Admission Other Justification History of Present Illness History of Present Illness Identification/Chief Complaint Chief Complaint SEEN IN ER WITH ACUTE ON CHRONIC CHF64 year old male who presented to ER for evaluation of trouble breathing with exertion for 1 week. His symptoms got worse the last 3 days. Patient had trouble sleeping last 3 days as well. Patient denies any fever. Patient had nonproductive cough for couple days. Patient denies any chest pain. denies any chills, no known exposure to COVID-19 infection, BUT HAS HAD GRANCHILDREN IN HOME . Patient has history of CHF, coronary artery disease, AICD. He was on lasix before but recently told not to take lasix 03/04: Patient seen and evaluated bedside. Currently breathing on room air. Charts and labs reviewed, discussed with cardiology. We will add spironolactone to his heart failure regimen upon discharge. Discussed with RN. Greater than 30 minutes was spent managing the discharge this patient. Vitals/I&O Vitals/I&O: Vital Signs Date Time Temp Pulse Resp B/P (MAP) Pulse Ox O2 Delivery O2 Flow Rate FiO2 03/04/20 11:00 98.8 77 20 92/62 (72) 95 Room Air 98.8 I & O 03/03/20 03/03/20 03/04/20 15:00 23:00 07:00 Intake Total 480 ml 660 ml 520 ml Output Total 720 ml 2100 ml 500 ml Balance -240 ml -1440 ml 20 ml Physical Exam General: Alert, No acute distress Heart: Regular rate Lungs: Other (Faint crackles in lung bases) Abdomen: Normal bowel sounds Extremities: No clubbing, No cyanosis, No edema Skin: No rashes, No breakdown Labs Labs: Laboratory Tests Test 03/04/20 08:15 Sodium Level 140 mmol/L (136-145) Potassium Level 3.6 mmol/L (3.5-5.1) Chloride Level 105 mmol/L (98-107) Carbon Dioxide Level 23 mmol/L (21-32) Anion Gap 12 (6-14) Blood Urea Nitrogen 13 mg/dL (8-26) Creatinine 1.3 mg/dL (0.7-1.3) Estimated GFR (Cockcroft-Gault) 67.2 Glucose Level 87 mg/dL (70-99) Calcium Level 8.9 mg/dL (8.5-10.1) Magnesium Level 2.0 mg/dL (1.8-2.4) Triglycerides Level 60 mg/dL (0-150) Cholesterol Level 147 mg/dL (0-200) LDL Cholesterol, Calculated 86 mg/dL (0-100) VLDL Cholesterol, Calculated 12 mg/dL (0-40) Non-HDL Cholesterol Calculated 98 mg/dL (0-129) HDL Cholesterol 49 mg/dL (40-60) Cholesterol/HDL Ratio 3.0 Assessment and Plan Assessmemt and Plan Problems Medical Problems: (1) Acute exacerbation of CHF (congestive heart failure) Status: Acute Comment Review of Relevant I have reviewed the following items cj (where applicable) has been applied. Justifications for Admission General Conditions Other justification for admit: acute severe chf, ischemic cardiomyopathy Other Justification MICHELLE DELGADO MD Mar 04, 2020 12:24
[2020-03-04] MEDS: ENOXAPARIN 40 MG/0.4 ML SYRINGE. SQ SCH (14:00)
[2020-03-04 14:37] LABS: CALCIUM 8.8 mg/dL (8.5-10.1); CREATININE 1.6 mg/dL (0.7-1.3); GFR 52.9; POTASSIUM 3.7 mmol/L (3.5-5.1)
[2020-03-04 15:00] VITALS: BP 90/56
[2020-03-04] MEDS ORDERED: SPIR25TA PO (16:49)
--- NOTE | 2020-03-04 16:52 | PDOC3 ---
Discharge Summary Visit Information Date of Admission: Mar 02, 2020 Date of Discharge: Mar 04, 2020 Final Diagnosis Problems Medical Problems: (1) Acute exacerbation of CHF (congestive heart failure) Status: Acute Brief Hospital Course Allergies Allergies Coded Allergies Type Severity Reaction Last Updated Verified ticagrelor Allergy Severe Swelling 02/03/19 Yes lisinopril Allergy Intermediate facial swelling 07/16/19 Yes Vital Signs Vital Signs Date Time Temp Pulse Resp B/P (MAP) Pulse Ox O2 Delivery O2 Flow Rate FiO2 03/04/20 15:00 97.7 61 20 90/56 (67) 100 Room Air 97.7 Lab Results Laboratory Tests Test 03/03/20 04:00 03/04/20 08:15 03/04/20 14:30 Sodium Level 141 mmol/L (136-145) 140 mmol/L (136-145) 138 mmol/L (136-145) Potassium Level 3.3 mmol/L (3.5-5.1) 3.6 mmol/L (3.5-5.1) 3.7 mmol/L (3.5-5.1) Chloride Level 106 mmol/L (98-107) 105 mmol/L (98-107) 103 mmol/L (98-107) Carbon Dioxide Level 22 mmol/L (21-32) 23 mmol/L (21-32) 26 mmol/L (21-32) Anion Gap 13 (6-14) 12 (6-14) 9 (6-14) Blood Urea Nitrogen 16 mg/dL (8-26) 13 mg/dL (8-26) 15 mg/dL (8-26) Creatinine 1.5 mg/dL (0.7-1.3) 1.3 mg/dL (0.7-1.3) 1.6 mg/dL (0.7-1.3) Estimated GFR (Cockcroft-Gault) 57.0 67.2 52.9 Glucose Level 101 mg/dL (70-99) 87 mg/dL (70-99) 107 mg/dL (70-99) Calcium Level 8.6 mg/dL (8.5-10.1) 8.9 mg/dL (8.5-10.1) 8.8 mg/dL (8.5-10.1) Magnesium Level 2.0 mg/dL (1.8-2.4) 2.0 mg/dL (1.8-2.4) Phosphorus Level 3.5 mg/dL (2.6-4.7) Triglycerides Level 60 mg/dL (0-150) Cholesterol Level 147 mg/dL (0-200) LDL Cholesterol, Calculated 86 mg/dL (0-100) VLDL Cholesterol, Calculated 12 mg/dL (0-40) Non-HDL Cholesterol Calculated 98 mg/dL (0-129) HDL Cholesterol 49 mg/dL (40-60) Cholesterol/HDL Ratio 3.0 Laboratory Tests Test 03/04/20 08:15 03/04/20 14:30 Sodium Level 140 mmol/L (136-145) 138 mmol/L (136-145) Potassium Level 3.6 mmol/L (3.5-5.1) 3.7 mmol/L (3.5-5.1) Chloride Level 105 mmol/L (98-107) 103 mmol/L (98-107) Carbon Dioxide Level 23 mmol/L (21-32) 26 mmol/L (21-32) Anion Gap 12 (6-14) 9 (6-14) Blood Urea Nitrogen 13 mg/dL (8-26) 15 mg/dL (8-26) Creatinine 1.3 mg/dL (0.7-1.3) 1.6 mg/dL (0.7-1.3) Estimated GFR (Cockcroft-Gault) 67.2 52.9 Glucose Level 87 mg/dL (70-99) 107 mg/dL (70-99) Calcium Level 8.9 mg/dL (8.5-10.1) 8.8 mg/dL (8.5-10.1) Phosphorus Level 3.5 mg/dL (2.6-4.7) Magnesium Level 2.0 mg/dL (1.8-2.4) Triglycerides Level 60 mg/dL (0-150) Cholesterol Level 147 mg/dL (0-200) LDL Cholesterol, Calculated 86 mg/dL (0-100) VLDL Cholesterol, Calculated 12 mg/dL (0-40) Non-HDL Cholesterol Calculated 98 mg/dL (0-129) HDL Cholesterol 49 mg/dL (40-60) Cholesterol/HDL Ratio 3.0 Brief Hospital Course Mr. Santana is a 64 old male who presented with acute on chronic systolic heart failure. Consultations placed to cardiology. He had a recent echocardiogram showing ejection fraction of 20%. Symptoms improved with diuresis. Patient admits that he was noncompliant with his home medications, taking some only as needed instead of as prescribed. Spironolactone was added to his heart failure regimen. Patient was stable for discharge home with close cardiology follow-up. Discharge Information Condition at Discharge: Improved Follow Up: Weeks Disposition/Orders: D/C to Home Scheduled Amiodarone Hcl (Amiodarone Hcl) 200 Mg Tablet, 200 MG PO BID for , (Reported) Entered as Reported by: NAN LEE RN on 01/27/19 0110 Last Action: Continued on 03/02/20 134 by CHEPE PHILLIPS MD Aspirin (Aspirin Ec) 81 Mg Tablet.dr, 81 MG PO DAILYWBKFT for heart, #30 Ref 2 Prescribed by: JEYSON BOYLE APRN on 04/28/18 1124 Last Action: Continued on 03/02/20 134 by CHEPE PHILLIPS MD Atorvastatin Calcium (Atorvastatin Calcium) 20 Mg Tablet, 40 MG PO QHS for cholesterol, #30 Ref 2 Prescribed by: JEYSON BOYLE APRN on 04/28/18 1124 Last Action: Continued on 03/02/20 134 by CHEPE PHILLIPS MD Clopidogrel Bisulfate (Clopidogrel) 75 Mg Tablet, 75 MG PO DAILY for TO PREVENT BLOOD CLOTS, #30 Ref 0 (Reported) Entered as Reported by: Siddhartha Santillan on 01/27/19 0121 Last Action: Continued on 03/02/20 134 by CHEPE PHILLIPS MD Furosemide (Lasix) 40 Mg Tablet, 1 TAB PO DAILY for DIURETIC for 30 Days, #30 Ref 0 Prescribed by: LEXY LIGHT MD on 10/07/19 1712 Last Action: HELD on 03/02/20 134 by CHEPE PHILLIPS MD Levothyroxine Sodium (Levothyroxine Sodium) 100 Mcg Tablet, 100 MCG PO DAILYAC for THYROID SUPPLEMENT, #30 Ref 0 (Reported) Entered as Reported by: KERRI GARCIA on 04/28/18 0430 Last Action: Continued on 03/02/20 1342 by CHEPE PHILLIPS MD Metoprolol Succinate (Toprol XL) 50 Mg Tab.er.24h, 25 MG PO DAILY for CHF for 30 Days, #15 Prescribed by: LEXY LIGHT MD on 10/07/191711 Last Action: Continued on 03/02/201341 by CHEPE PHILLIPS MD Potassium Chloride (Klor-Con 10) 10 Meq Tablet.er, 1 TAB PO DAILY for POTASSIUM REPLACEMENT for 30 Days, #30 Ref 0 Prescribed by: LEXY LIGHT MD on 10/07/191711 Last Action: Continued on 03/02/201341 by CHEPE PHILLIPS MD Sacubitril/Valsartan (Entresto 49 mg-51 mg Tablet) 1 Each Tablet, 1 EACH PO DAILY for chf, (Reported) Entered as Reported by: Siddhartha Santillan on 01/27/19 0121 Last Action: Continued on 03/02/201341 by CHEPE PHILLIPS MD Spironolactone (Aldactone) 25 Mg Tablet, 12.5 MG PO DAILY for Heart Failure, #30 Ref 2 Prescribed by: MICHELLE DELGADO MD on 03/04/20 1649 Scheduled PRN Nitroglycerin (Nitrostat) 0.4 Mg Tab.subl, 0.4 MG SL PRN Q5MIN PRN for CHEST PAIN for 30 Days, #30 PLEASE TAKE NEEDED FOR CHEST PAIN, REPEAT EVERY 5 MIN X 3 PLEASE CALL MD IF PAIN NOT RESOLVED AFTER THIRD DOSE. Prescribed by: TRISH LEE MD on 04/28/18 1204 Last Action: Continued on 03/02/201341 by CHEPE PHILLIPS MD Justicifation of Admission Dx: Justifications for Admission: Justification of Admission Dx: Yes PR: Acute NSTEMI MICHELLE DELGADO MD Mar 04, 2020 16:52
--- NOTE | 2020-03-04 19:39 | NUR ---
Discharge Note: ANGIE HAN Discharge instructions and discharge home medications reviewed with Patient and a copy given. All questions have been answered and understanding verbalized. The following instructions and handouts were given: follow up with Dr. Carter on May 09 and his primary in 1-2 weeks for electrolytes check up, diet, CHF, medications. Discontinued lines and drains: IV removed, no lines present. Patient discharged to home. ambulated to private vehicle.
[2020-03-05] MEDS ORDERED: SPIRONOLACTONE 25 MG TABLET PO SCH (09:00)
== END 2020-03-04 18:40 | disposition home or self-care (01) | DRG 291 ==
LOC: ER 07:45 → ED HOLD 13:29 → 2 NORTH 16:20
PROVIDERS: ADMIT Family Medicine; ATTEND Family Medicine
DX: I11.0 Hypertensive heart disease with heart failure (principal); J96.00 Acute respiratory failure, unspecified whether with hypoxia or hypercapnia; I50.43 Acute on chronic combined systolic (congestive) and diastolic (congestive) heart failure; E03.9 Hypothyroidism, unspecified; E78.5 Hyperlipidemia, unspecified; E87.6 Hypokalemia; M19.90 Unspecified osteoarthritis, unspecified site; I25.10 Atherosclerotic heart disease of native coronary artery without angina pectoris; I25.2 Old myocardial infarction; I25.5 Ischemic cardiomyopathy; I45.10 Unspecified right bundle-branch block; I48.91 Unspecified atrial fibrillation; Z82.3 Family history of stroke; Z82.5 Family history of asthma and other chronic lower respiratory diseases; Z83.3 Family history of diabetes mellitus; Z87.891 Personal history of nicotine dependence; Z91.14 Patient's other noncompliance with medication regimen; Z95.5 Presence of coronary angioplasty implant and graft; Z95.810 Presence of automatic (implantable) cardiac defibrillator; Z88.8 Allergy status to other drugs, medicaments and biological substances; Z79.899 Other long term (current) drug therapy; Z20.828 Contact with and (suspected) exposure to other viral communicable diseases
CPT/HCPCS: 36415; 71045; 80048; 80053; 80061; 83735; 83880; 84100; 84484; 85025; 93005; 94760; J1650; J1940; U0003; 99285-25; G0378